=== PATIENT | male | born 1950 | race Caucasian/White ===

== ENCOUNTER 2017-04-01 10:00 | Outpatient (RCR) | payer MEDICARE, SELFPAY ==
[2017-03-25 09:19] VITALS: BP 156/72; PULSE 90; RESP 18; TEMP 36.3
--- NOTE | 2017-03-25 13:56 | HP.PCM_ITS ---
(1) Non-pressure ulcer of right lower extremity with fat layer exposed Status: Acute Current Visit: Yes Code(s): L97.912 - Non-pressure chronic ulcer of unspecified part of right lower leg with fat layer exposed (2) Non-pressure ulcer of left lower extremity with fat layer exposed Status: Acute Current Visit: Yes Code(s): L97.922 - Non-pressure chronic ulcer of unspecified part of left lower leg with fat layer exposed (3) Lower extremity edema Status: Acute Current Visit: Yes Code(s): R60.0 - Localized edema (4) Malnutrition Status: Acute Current Visit: Yes Code(s): E46 - Unspecified protein-calorie malnutrition (5) Obesity Status: Acute Current Visit: Yes Code(s): E66.9 - Obesity, unspecified (6) Peripheral vascular obstructive disease Status: Acute Current Visit: No Code(s): I73.9 - Peripheral vascular disease , unspecified (7) Type 2 diabetes mellitus with peripheral neuropathy Status: Acute Current Visit: No Code(s): E11.42 - Type 2 diabetes mellitus with diabetic polyneuropathy History of Present Illness Date of Service: 03/25/17 Chief Complaint: clusters of small open ulcers to bilateral anterior lower legs History of Wound: This 66-year-old diabetic male presents to the wound center today for bilateral lower extremity small clusters of tiny ulcers that have recently opened back up. Patient has been discharged from the wound center in the past for the same issues. He and his returned today stating that they noticed the areas opening back up as well as some slight redness around them on March 22. The patient and his first went to urgent care where they prescribed Keflex for the redness and also stated that they could not rule out DVT. At this point the patient's took her to the [place] emergency room where they told her that there was no DVT and he was sent home and told to follow-up as an outpatient for further care. Patient has not been compliant with wearing compression to bilateral lower extremities. The says she is able to get the compression on some days but other days it is too hard. The patient also does not control his diabetes and does not watch his diet per . Patient has a procedure scheduled on April [address] Ho. Patient and his both deny any purulence or malodor to the areas and the patient also denies any feelings of nausea, vomiting, fever, chills. 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) Allergies/Adverse Reactions: Allergies lisinopril Allergy (Verified 03/22/17 20:58) COUGH simvastatin Allergy (Verified 03/22/17 20:58) Unknown Home Medications: Ambulatory Orders Medication Instructions Recorded Aspirin [Aspirin, Baby] 81 mg PO DAILY@0800 10/07/16 Diclofenac [Voltaren] 75 mg PO BID PRN PRN 10/07/16 Levothyroxine [Synthroid] 50 mcg PO DAILY 10/07/16 Losartan/Hydrochlorothiazide 1 each PO DAILY 10/07/16 [Losartan-Hctz 100-25 mg Tab] Insulin Aspart [Novolog Flexpen] 22 units SC BREAKFAST 11/05/16 Insulin NPH Human [Humulin N Pen] 24 units SC DINNER 11/05/16 Insulin Regular, Human [Novolin R] 18 unit SC QHS 11/05/16 Insulin Regular, Human [Novolin R] 26 unit SC LUNCH 03/22/17 Cephalexin 500 mg PO BID 03/25/17 Furosemide [Lasix] 20 mg PO DAILY 03/25/17 - Family History Maternal No pertinent history Paternal No pertinent history Lives: Spouse/ Significant Other Smoking Status: Never smoker Tobacco Use: Non-smoker Review of Systems Constitutional: Denies: Chills, Fever Respiratory: Denies: Cough, Shortness of Breath Gastrointestinal: Denies: Diarrhea, Nausea, Vomiting Skin: Reports: - - Ulcers bilateral anterior lower legs Neurological: Reports: Numbness, Tingling - Physical Exam Vital Signs Temp Pulse Resp BP 97.3 F L 90 18 156/72 H 03/25/17 09:19 03/25/17 09:19 03/25/17 09:19 03/25/17 09:19 General: Alert, Oriented x3, No apparent distress Extremities: Capillary Refill Less than 3 Seconds, No Calf Tenderness - Negative Kavon and Cody sign bilateral, Diminished Peripheral Pulses - DP and PT pulses nonpalpable due to edema bilaterally., Edema - Bilateral lower extremity edema Skin: Ulcer/ Wound - Clusters of small open ulcers appreciated to bilateral anterior lower legs. The bases of the open ulcers are completely granular at this time with some slight serous drainage appreciated. No purulence, no malodor are noted. There is no probing to bone, no undermining, no tracking. There is no extending cellulitis. Some hemosiderin staining noted bilaterally to the lower extremities. No evidence of acute infection clinically., Excoriated - Some excoriated skin around the open ulcer sites. Wound Measurements and Assessment - Nurse 1 - General Ulcer Measurement Start: 03/25/17 09:10 Freq: Status: Active Protocol: Activity Type Activity Date Activity User E-Sign Co-Sign Detail Recorded Client Recorded Date Recorded By Document 03/25/17 09:19 RB [id number] 03/25/17 09:27 RB 03/25/17 09:19 Wound Center Nurse 1 [Ulcer Assessment Protocol: .WD.LOC] #5 RLE excoration cluster -Combined with other wound No -Current Size (cm) - Length 2 -Current Size (cm) - Width 11 -Current Size (cm) - Depth 0.1 -Total Square Cm 22 -Photo Taken Yes -Tunneling No -Undermining/Tunneling No -Circular Undermining No -Classification - Thickness Full Thickness without Exposed Support Structure -Exudate Amt Small (1-33%) -Exudate Type Serosanguineous -Wound Margin Distinct, Outline Attached -Granulation Amt Small (1-33%) -Granulation Quality [place] -Slough/Fibrin Yes -Necrosis Amt Medium (34-66%) -Necrotic Tissue Type Adherent Slough -Structure Exposed N/A -Texture (Michelle-wound Skin Appearance) Assessed Excoriation -Moisture (Michelle-wound Skin Appearance Assessed ) -Color (Michelle-wound Skin Appearance) Assessed -Temperature (Michelle-wound Skin No Abnormality Appearance) (Pt Warm) -Tenderness on Palpation (Michelle-wound No Skin Appearance) -Ulcer Cleansing Rinsed/ Irrigated with Saline -Anesthetic Used 4% Lidocaine Solution #6 LLE excoration cluster -Combined with other wound No -Current Size (cm) - Length 10 -Current Size (cm) - Width 4 -Current Size (cm) - Depth 0.1 -Total Square Cm 40 -Photo Taken Yes -Tunneling No -Undermining/Tunneling No -Circular Undermining No -Classification - Thickness Full Thickness without Exposed Support Structure -Exudate Amt Small (1-33%) -Exudate Type Serosanguineous -Wound Margin Distinct, Outline Attached -Granulation Amt Small (1-33%) -Granulation Quality [place] -Necrosis Amt Medium (34-66%) -Necrotic Tissue Type Adherent Slough -Structure Exposed N/A -Texture (Michelle-wound Skin Appearance) Assessed Excoriation -Moisture (Michelle-wound Skin Appearance Assessed ) -Color (Michelle-wound Skin Appearance) Assessed -Temperature ([place]-wound Skin No Abnormality Appearance) (Pt Warm) -Tenderness on Palpation (Michelle-wound No Skin Appearance) -Ulcer Cleansing Rinsed/ Irrigated with Saline -Foul Odor after Cleansing No -Anesthetic Used 4% Lidocaine Solution [Edema Assessment] -Lower Limb Edema Present Yes -Right Calf (cm) 45.2 -Right Ankle (cm) 25.5 -Left Calf (cm) 45.5 -Left Ankle (cm) 25 WC - Nurse 2 - General Ulcer CM Notes Start: 03/25/17 09:10 Freq: Status: Active Protocol: Activity Type Activity Date Activity User E-Sign Co-Sign Detail Recorded Client Recorded Date Recorded By Document 03/25/17 10:12 MW [id number] 03/25/17 10:17 MW 03/25/17 10:12 Wound Center Nurse 2 [Procedure/Treatment] #5 RLE excoration cluster -Time 09:45 -Correct Patient Yes -Correct Side, Site, Position Yes -Correct Procedure Yes -Procedure Performed No -Post Debridement Size (cm) - Length 12.0 -Post Debridement Size (cm) - Width 14.0 -Post Debridement Size (cm) - Depth 0.1 -Total Square Cm 168.00 -Wound/Ulcer Outcome Not Healed -Ulcer Cleansing Not Cleansed -Foul Odor after Cleansing No -Bioengineered Tissue No -Cetacaine [place] No -Bleeding Controlled with NA -Treatment Response Procedure Tolerated Well #6 LLE excoration cluster -Time 09:45 -Correct Patient Yes -Correct Side, Site, Position Yes -Correct Procedure Yes -Procedure Performed No -Post Debridement Size (cm) - Length 5.0 -Post Debridement Size (cm) - Width 9.5 -Post Debridement Size (cm) - Depth 0.1 -Total Square Cm 47.50 -Wound/Ulcer Outcome Not Healed -Ulcer Cleansing Not Cleansed -Foul Odor after Cleansing No -Bioengineered Tissue No -Cetacaine [place] No -Bleeding Controlled with NA -Treatment Response Procedure Tolerated Well [See Physician Procedure note for Specifics] Pain Scale: 0-10 Numeric [Pain] -Is Patient Pain Free? Yes Musculoskeletal: - - No tenderness today according to patient. Neurological: - - Protective sensation diminished bilaterally to greater than 2 of 5 pedal sites tested at random using a 5.07 [place] monofilament Psych/Mental Status: Normal Affect, Appropriate Debridement Note Post-Debridement Measurements/Treatment WC - Nurse 2 - General Ulcer CM Notes Start: 03/25/17 09:10 Freq: Status: Active Protocol: Activity Type Activity Date Activity User E-Sign Co-Sign Detail Recorded Client Recorded Date Recorded By Document 03/25/17 10:12 MW [id number] 03/25/17 10:17 MW 03/25/17 10:12 Wound Center Nurse 2 #5 RLE excoration cluster -Time 09:45 -Correct Patient Yes -Correct Side, Site, Position Yes -Correct Procedure Yes -Procedure Performed No -Post Debridement Size (cm) - Length 12.0 -Post Debridement Size (cm) - Width 14.0 -Post Debridement Size (cm) - Depth 0.1 -Total Square Cm 168.00 -Wound/Ulcer Outcome Not Healed -Ulcer Cleansing Not Cleansed -Foul Odor after Cleansing No -Bioengineered Tissue No -Cetacaine [place] No -Bleeding Controlled with NA -Treatment Response Procedure Tolerated Well #6 LLE excoration cluster -Time 09:45 -Correct Patient Yes -Correct Side, Site, Position Yes -Correct Procedure Yes -Procedure Performed No -Post Debridement Size (cm) - Length 5.0 -Post Debridement Size (cm) - Width 9.5 -Post Debridement Size (cm) - Depth 0.1 -Total Square Cm 47.50 -Wound/Ulcer Outcome Not Healed -Ulcer Cleansing Not Cleansed -Foul Odor after Cleansing No -Bioengineered Tissue No -Cetacaine [place] No -Bleeding Controlled with NA -Treatment Response Procedure Tolerated Well Pain Scale: 0-10 Numeric Is Patient Pain Free? Yes Wound debrided: bilateral anterior lower extremity No debridement was completed today Assessment/Plan Active Problems Non-pressure ulcer of right lower extremity with fat layer exposed (Acute) Non-pressure ulcer of left lower extremity with fat layer exposed (Acute) Lower extremity edema (Acute) Malnutrition (Acute) Obesity (Acute) Assessment: Peripheral vascular occlusive disease. Edema bilateral lower legs. Bilateral lower leg ulcer. Diabetes uncontrolled Plan: Initial patient examination evaluation was performed. Previous lab values and notes were reviewed in great detail. Due to the nature of the patient's ulcers, no debridement was warranted today. The patient is to apply hydrogel to the areas, followed by Adaptic, gauze dressing, and a double layer Tubigrip. This is to be changed by the patient and his daily. A lot of time was spent with the patient and his stressing the importance of compression to his lower extremities, and the importance of compliance with treatment plans. Patient encouraged to follow the treatment plan closely in order to heal up the small clusters of open ulcers before he sees Dr. Ho on April 05 for his procedure. The patient's diet was discussed with the patient and his as well and the importance of eating a high-protein diet as well as avoiding foods that are not conducive to a diabetic diet. The importance of tight glycemic control was also discussed as well as bringing down the hemoglobin A1c number. Patient is to continue with his prescription for Keflex until completed. Prescription for dressing change supplies was given and to be filled at [facility]. Patient and his were also educated on signs and symptoms of local and systemic infection and were notified to go to the ER immediately should they notice any. Otherwise, the patient will follow up in office in one week to check on progress.
[2017-04-01 10:27] VITALS: BP 146/77; PULSE 80; RESP 18; TEMP 35.9
--- NOTE | 2017-04-01 21:25 | PCM.WC.PN ---
(1) Non-pressure ulcer of right lower extremity with fat layer exposed Status: Acute Current Visit: Yes Code(s): L97.912 - Non-pressure chronic ulcer of unspecified part of right lower leg with fat layer exposed (2) Non-pressure ulcer of left lower extremity with fat layer exposed Status: Acute Current Visit: Yes Code(s): L97.922 - Non-pressure chronic ulcer of unspecified part of left lower leg with fat layer exposed (3) Lower extremity edema Status: Acute Current Visit: Yes Code(s): R60.0 - Localized edema (4) Malnutrition Status: Acute Current Visit: Yes Code(s): E46 - Unspecified protein-calorie malnutrition (5) Obesity Status: Acute Current Visit: Yes Code(s): E66.9 - Obesity, unspecified (6) Peripheral vascular obstructive disease Status: Acute Current Visit: No Code(s): I73.9 - Peripheral vascular disease, unspecified (7) Type 2 diabetes mellitus with peripheral neuropathy Status: Acute Current Visit: No Code(s): E11.42 - Type 2 diabetes mellitus with diabetic polyneuropathy Type of Wound Date of Service: 04/01/17 Chief Complaint: clusters of small open ulcers to bilateral anterior lower legs History of Wound: This 66-year-old diabetic male presents to the wound center today for follow up of bilateral lower extremity small clusters of tiny ulcers that have recently opened back up. Over the last week the patient and his state they have been trying to follow the dressing changes as well as compression to bilateral lower extremities as much as they can. The feel there is an improvement. Patient and his both deny any purulence or malodor to the areas and the patient also denies any feelings of nausea, vomiting, fever, chills. Progress of Wound: areas are healed today. - Physical Exam Vital Signs Temp Pulse Resp BP 96.7 F L 80 18 146/77 H 04/01/17 10:27 04/01/17 10:27 04/01/17 10:27 04/01/17 10:27 General: Alert, Oriented x3, Cooperative, No apparent distress Extremities: Capillary Refill Less than 3 Seconds, No Calf Tenderness - Negative Kavon and Cody sign bilateral, Edema - Bilateral pitting lower extremity edema which is slightly improved since last week, - - DP and PT pulses nonpalpable bilateral due to edema Skin: Ulcer/ Wound - Clusters of small open ulcers to bilateral anterior lower legs. Appear healed at this time. There is no drainage or openings in the skin noted. A couple of small scabs appreciated, however upon removal, there were no openings in the skin. There is no erythema appreciated or extending cellulitis. Some hemosiderin staining noted bilaterally to the lower extremities. No evidence of acute infection clinically. Wound Measurements and Assessment - Nurse 1 - General Ulcer Measurement Start: 03/25/17 09:10 Freq: Status: Active Protocol: Activity Type Activity Date Activity User E-Sign Co-Sign Detail Recorded Client Recorded Date Recorded By Document 04/01/17 10:27 TM [id number] 04/01/17 10:38 TM 04/01/17 10:27 Wound Center Nurse 1 [Ulcer Assessment Protocol: WC.WD.LOC] #5 RLE excoration cluster -Combined with other wound No -Current Size (cm) - Length 6.0 -Current Size (cm) - Width 16.0 -Current Size (cm) - Depth 0.1 -Total Square Cm 96.00 -Photo Taken No -Epithelialization Small 1-33% -Tunneling No -Undermining/Tunneling No -Circular Undermining No -Classification - Thickness Full Thickness without Exposed Support Structure -Exudate Amt Small (1-33%) -Exudate Type Serous -Wound Margin Distinct, Outline Attached -Granulation Amt Medium (34-66%) -Granulation Quality [place] -Slough/Fibrin Yes -Necrosis Amt Medium (34-66%) -Necrotic Tissue Type Adherent Slough -Structure Exposed None/Limited to Skin Breakdown -Texture (Michelle-wound Skin Appearance) Localized Edema -Moisture (Michelle-wound Skin Appearance Dry/Scaly ) -Color (Michelle-wound Skin Appearance) Erythema Hemosiderin Staining -Temperature (Michelle-wound Skin No Abnormality Appearance) (Pt Warm) -Tenderness on Palpation (Michelle-wound No Skin Appearance) -Ulcer Cleansing Rinsed/ Irrigated with Saline -Foul Odor after Cleansing No -Anesthetic Used 4% Lidocaine Solution #6 LLE excoration cluster -Combined with other wound No -Current Size (cm) - Length 9.0 -Current Size (cm) - Width 4.5 -Current Size (cm) - Depth 0.1 -Total Square Cm 40.50 -Photo Taken No -Epithelialization Small 1-33% -Tunneling No -Undermining/Tunneling No -Circular Undermining No -Classification - Thickness Full Thickness without Exposed Support Structure -Exudate Amt Small (1-33%) -Exudate Type Serous -Wound Margin Distinct, Outline Attached -Granulation Amt Small (1-33%) -Granulation Quality [place] -Slough/Fibrin Yes -Necrosis Amt Medium (34-66%) -Necrotic Tissue Type Adherent Slough -Structure Exposed None/Limited to Skin Breakdown -Texture (Michelle-wound Skin Appearance) Localized Edema -Moisture (Michelle-wound Skin Appearance Dry/Scaly ) -Color (Michelle-wound Skin Appearance) Erythema Hemosiderin Staining -Temperature (Michelle-wound Skin No Abnormality Appearance) (Pt Warm) -Tenderness on Palpation (Michelle-wound No Skin Appearance) -Ulcer Cleansing Rinsed/ Irrigated with Saline -Foul Odor after Cleansing No -Anesthetic Used 4% Lidocaine Solution [Edema Assessment] -Lower Limb Edema Present Yes -Right Calf (cm) 37.0 -Right Ankle (cm) 24.0 -Left Calf (cm) 38.0 -Left Ankle (cm) 24.0 WC - Nurse 2 - General Ulcer CM Notes Start: 03/25/17 09:10 Freq: Status: Active Protocol: Activity Type Activity Date Activity User E-Sign Co-Sign Detail Recorded Client Recorded Date Recorded By Document 04/01/17 10:59 MW [id number] 04/01/17 11:05 MW 04/01/17 10:59 Wound Center Nurse 2 [Procedure/Treatment] #5 RLE excoration cluster -Time 10:59 -Correct Patient Yes -Correct Side, Site, Position Yes -Correct Procedure Yes -Procedure Performed Yes -Type of Procedure Debridement -Clinical Debridement Selective -Post Debridement Size (cm) - Length 0 -Post Debridement Size (cm) - Width 0 -Post Debridement Size (cm) - Depth 0 -Total Square Cm 0 -Wound/Ulcer Outcome Healed- Epithelialized -Ulcer Cleansing Rinsed/ Irrigated with Saline -Foul Odor after Cleansing No -Bioengineered Tissue No -Cetacaine [place] No -Bleeding Controlled with NA -Treatment Response Procedure Tolerated Well #6 LLE excoration cluster -Time 11:02 -Correct Patient Yes -Correct Side, Site, Position Yes -Correct Procedure Yes -Procedure Performed Yes -Type of Procedure Debridement -Clinical Debridement Selective -Post Debridement Size (cm) - Length 0 -Post Debridement Size (cm) - Width 0 -Post Debridement Size (cm) - Depth 0 -Total Square Cm 0 -Wound/Ulcer Outcome Healed- Epithelialized -Ulcer Cleansing Not Cleansed -Foul Odor after Cleansing No -Bioengineered Tissue No -Cetacaine [place] No -Bleeding Controlled with NA -Treatment Response Procedure Tolerated Well [See Physician Procedure note for Specifics] Pain Scale: 0-10 Numeric [Pain] -Is Patient Pain Free? Yes Neurological: - - Epicritic sensation diminished to bilateral lower extremities Psych/Mental Status: Normal Affect, Appropriate Debridement Note Post-Debridement Measurements/Treatment WC - Nurse 2 - General Ulcer CM Notes Start: 03/25/17 09:10 Freq: Status: Active Protocol: Activity Type Activity Date Activity User E-Sign Co-Sign Detail Recorded Client Recorded Date Recorded By Document 03/25/17 10:12 MW [id number] 03/25/17 10:17 MW Document 04/01/17 10:59 MW [id number] 04/01/17 11:05 MW 03/25/17 04/01/17 10:12 10:59 Wound Center Nurse 2 #5 RLE excoration cluster -Time 09:45 10:59 -Correct Patient Yes Yes -Correct Side, Site, Position Yes Yes -Correct Procedure Yes Yes -Procedure Performed No Yes -Type of Procedure Debridement -Clinical Debridement Selective -Post Debridement Size (cm) - Length 12.0 0 -Post Debridement Size (cm) - Width 14.0 0 -Post Debridement Size (cm) - Depth 0.1 0 -Total Square Cm 168.00 0 -Wound/Ulcer Outcome Not Healed Healed- Epithelialized -Ulcer Cleansing Not Cleansed Rinsed/ Irrigated with Saline -Foul Odor after Cleansing No No -Bioengineered Tissue No No -Cetacaine [place] No No -Bleeding Controlled with NA NA -Treatment Response Procedure Procedure Tolerated Well Tolerated Well #6 LLE excoration cluster -Time 09:45 11:02 -Correct Patient Yes Yes -Correct Side, Site, Position Yes Yes -Correct Procedure Yes Yes -Procedure Performed No Yes -Type of Procedure Debridement -Clinical Debridement Selective -Post Debridement Size (cm) - Length 5.0 0 -Post Debridement Size (cm) - Width 9.5 0 -Post Debridement Size (cm) - Depth 0.1 0 -Total Square Cm 47.50 0 -Wound/Ulcer Outcome Not Healed Healed- Epithelialized -Ulcer Cleansing Not Cleansed Not Cleansed -Foul Odor after Cleansing No No -Bioengineered Tissue No No -Cetacaine [place] No No -Bleeding Controlled with NA NA -Treatment Response Procedure Procedure Tolerated Well Tolerated Well Pain Scale: 0-10 Numeric Is Patient Pain Free? Yes Yes No debridement was completed today Assessment/Plan Active Problems Non-pressure ulcer of right lower extremity with fat layer exposed (Acute) Non-pressure ulcer of left lower extremity with fat layer exposed (Acute) Lower extremity edema (Acute) Malnutrition (Acute) Obesity (Acute) Assessment: Peripheral vascular occlusive disease. Edema bilateral lower legs. Bilateral lower leg ulcer. Diabetes uncontrolled Plan: Patient was examined and evaluated. At this current time, he is noted to be completely healed. Although the ulcers to both lower legs have healed, the patient is to continue wearing the tubigrip compression dressings as instructed. A lot of time was spent with the patient and his stressing the importance of compression to his lower extremities, and the importance of compliance with treatment plans. Patient is planning to see Dr. Ho on Apr 05 for a procedure. It was stressed the importance of keeping these areas healed. The patient's diet was again discussed with the patient and his as well and the importance of eating a high-protein diet as well as avoiding foods that are not conducive to a diabetic diet. The importance of tight glycemic control was also discussed as well as bringing down the hemoglobin A1c number. Patient and his were also educated on signs and symptoms of local and systemic infection and were notified to go to the ER immediately should they notice any. At this time patient will be discharged from wound healing center, transfer of care to Dr. Ho. Patient instructed to return to wound healing center should any ulcers return.
--- NOTE | 2017-04-01 21:39 | PN.PCM_ITS ---
(1) Non-pressure ulcer of right lower extremity with fat layer exposed Status: Acute Current Visit: Yes Code(s): L97.912 - Non-pressure chronic ulcer of unspecified part of right lower leg with fat layer exposed (2) Non-pressure ulcer of left lower extremity with fat layer exposed Status: Acute Current Visit: Yes Code(s): L97.922 - Non-pressure chronic ulcer of unspecified part of left lower leg with fat layer exposed (3) Lower extremity edema Status: Acute Current Visit: Yes Code(s): R60.0 - Localized edema (4) Malnutrition Status: Acute Current Visit: Yes Code(s): E46 - Unspecified protein-calorie malnutrition (5) Obesity Status: Acute Current Visit: Yes Code(s): E66.9 - Obesity, unspecified (6) Peripheral vascular obstructive disease Status: Acute Current Visit: No Code(s): I73.9 - Peripheral vascular disease , unspecified (7) Type 2 diabetes mellitus with peripheral neuropathy Status: Acute Current Visit: No Code(s): E11.42 - Type 2 diabetes mellitus with diabetic polyneuropathy Type of Wound Date of Service: 04/01/17 Chief Complaint: clusters of small open ulcers to bilateral anterior lower legs History of Wound: This 66-year-old diabetic male presents to the wound center today for follow up of bilateral lower extremity small clusters of tiny ulcers that have recently opened back up. Over the last week the patient and his state they have been trying to follow the dressing changes as well as compression to bilateral lower extremities as much as they can. The feel there is an improvement. Patient and his both deny any purulence or malodor to the areas and the patient also denies any feelings of nausea, vomiting, fever, chills. Progress of Wound: areas are healed today. - Physical Exam Vital Signs Temp Pulse Resp BP 96.7 F L 80 18 146/77 H 04/01/17 10:27 04/01/17 10:27 04/01/17 10:27 04/01/17 10:27 General: Alert, Oriented x3, Cooperative, No apparent distress Extremities: Capillary Refill Less than 3 Seconds, No Calf Tenderness - Negative Kavon and Cody sign bilateral, Edema - Bilateral pitting lower extremity edema which is slightly improved since last week, - - DP and PT pulses nonpalpable bilateral due to edema Skin: Ulcer/ Wound - Clusters of small open ulcers to bilateral anterior lower legs. Appear healed at this time. There is no drainage or openings in the skin noted. A couple of small scabs appreciated, however upon removal, there were no openings in the skin. There is no erythema appreciated or extending cellulitis. Some hemosiderin staining noted bilaterally to the lower extremities. No evidence of acute infection clinically. Wound Measurements and Assessment - Nurse 1 - General Ulcer Measurement Start: 03/25/17 09:10 Freq: Status: Active Protocol: Activity Type Activity Date Activity User E-Sign Co-Sign Detail Recorded Client Recorded Date Recorded By Document 04/01/17 10:27 TM [id number] 04/01/17 10:38 TM 04/01/17 10:27 Wound Center Nurse 1 [Ulcer Assessment Protocol: WC.WD.LOC] #5 RLE excoration cluster -Combined with other wound No -Current Size (cm) - Length 6.0 -Current Size (cm) - Width 16.0 -Current Size (cm) - Depth 0.1 -Total Square Cm 96.00 -Photo Taken No -Epithelialization Small 1-33% -Tunneling No -Undermining/Tunneling No -Circular Undermining No -Classification - Thickness Full Thickness without Exposed Support Structure -Exudate Amt Small (1-33%) -Exudate Type Serous -Wound Margin Distinct, Outline Attached -Granulation Amt Medium (34-66%) -Granulation Quality Pale -Slough/Fibrin Yes -Necrosis Amt Medium (34-66%) -Necrotic Tissue Type Adherent Slough -Structure Exposed None/Limited to Skin Breakdown -Texture (Michelle-wound Skin Appearance) Localized Edema -Moisture (Michelle-wound Skin Appearance Dry/Scaly ) -Color (Michelle-wound Skin Appearance) Erythema Hemosiderin Staining -Temperature (Michelle-wound Skin No Abnormality Appearance) (Pt Warm) -Tenderness on Palpation (Michelle-wound No Skin Appearance) -Ulcer Cleansing Rinsed/ Irrigated with Saline -Foul Odor after Cleansing No -Anesthetic Used 4% Lidocaine Solution #6 LLE excoration cluster -Combined with other wound No -Current Size (cm) - Length 9.0 -Current Size (cm) - Width 4.5 -Current Size (cm) - Depth 0.1 -Total Square Cm 40.50 -Photo Taken No -Epithelialization Small 1-33% -Tunneling No -Undermining/Tunneling No -Circular Undermining No -Classification - Thickness Full Thickness without Exposed Support Structure -Exudate Amt Small (1-33%) -Exudate Type Serous -Wound Margin Distinct, Outline Attached -Granulation Amt Small (1-33%) -Granulation Quality [place] -Slough/Fibrin Yes -Necrosis Amt Medium (34-66%) -Necrotic Tissue Type Adherent Slough -Structure Exposed None/Limited to Skin Breakdown -Texture (Michelle-wound Skin Appearance) Localized Edema -Moisture (Michelle-wound Skin Appearance Dry/Scaly ) -Color (Michelle-wound Skin Appearance) Erythema Hemosiderin Staining -Temperature (Michelle-wound Skin No Abnormality Appearance) (Pt Warm) -Tenderness on Palpation (Michelle-wound No Skin Appearance) -Ulcer Cleansing Rinsed/ Irrigated with Saline -Foul Odor after Cleansing No -Anesthetic Used 4% Lidocaine Solution [Edema Assessment] -Lower Limb Edema Present Yes -Right Calf (cm) 37.0 -Right Ankle (cm) 24.0 -Left Calf (cm) 38.0 -Left Ankle (cm) 24.0 WC - Nurse 2 - General Ulcer CM Notes Start: 03/25/17 09:10 Freq: Status: Active Protocol: Activity Type Activity Date Activity User E-Sign Co-Sign Detail Recorded Client Recorded Date Recorded By Document 04/01/17 10:59 MW [id number] 04/01/17 11:05 MW 04/01/17 10:59 Wound Center Nurse 2 [Procedure/Treatment] #5 RLE excoration cluster -Time 10:59 -Correct Patient Yes -Correct Side, Site, Position Yes -Correct Procedure Yes -Procedure Performed Yes -Type of Procedure Debridement -Clinical Debridement Selective -Post Debridement Size (cm) - Length 0 -Post Debridement Size (cm) - Width 0 -Post Debridement Size (cm) - Depth 0 -Total Square Cm 0 -Wound/Ulcer Outcome Healed- Epithelialized -Ulcer Cleansing Rinsed/ Irrigated with Saline -Foul Odor after Cleansing No -Bioengineered Tissue No -Cetacaine [place] No -Bleeding Controlled with NA -Treatment Response Procedure Tolerated Well #6 LLE excoration cluster -Time 11:02 -Correct Patient Yes -Correct Side, Site, Position Yes -Correct Procedure Yes -Procedure Performed Yes -Type of Procedure Debridement -Clinical Debridement Selective -Post Debridement Size (cm) - Length 0 -Post Debridement Size (cm) - Width 0 -Post Debridement Size (cm) - Depth 0 -Total Square Cm 0 -Wound/Ulcer Outcome Healed- Epithelialized -Ulcer Cleansing Not Cleansed -Foul Odor after Cleansing No -Bioengineered Tissue No -Cetacaine [place] No -Bleeding Controlled with NA -Treatment Response Procedure Tolerated Well [See Physician Procedure note for Specifics] Pain Scale: 0-10 Numeric [Pain] -Is Patient Pain Free? Yes Neurological: - - Epicritic sensation diminished to bilateral lower extremities Psych/Mental Status: Normal Affect, Appropriate Debridement Note Post-Debridement Measurements/Treatment WC - Nurse 2 - General Ulcer CM Notes Start: 03/25/17 09:10 Freq: Status: Active Protocol: Activity Type Activity Date Activity User E-Sign Co-Sign Detail Recorded Client Recorded Date Recorded By Document 03/25/17 10:12 MW [id number] 03/25/17 10:17 MW Document 04/01/17 10:59 MW [id number] 04/01/17 11:05 MW 03/25/17 04/01/17 10:12 10:59 Wound Center Nurse 2 #5 RLE excoration cluster -Time 09:45 10:59 -Correct Patient Yes Yes -Correct Side, Site, Position Yes Yes -Correct Procedure Yes Yes -Procedure Performed No Yes -Type of Procedure Debridement -Clinical Debridement Selective -Post Debridement Size (cm) - Length 12.0 0 -Post Debridement Size (cm) - Width 14.0 0 -Post Debridement Size (cm) - Depth 0.1 0 -Total Square Cm 168.00 0 -Wound/Ulcer Outcome Not Healed Healed- Epithelialized -Ulcer Cleansing Not Cleansed Rinsed/ Irrigated with Saline -Foul Odor after Cleansing No No -Bioengineered Tissue No No -Cetacaine [place] No No -Bleeding Controlled with NA NA -Treatment Response Procedure Procedure Tolerated Well Tolerated Well #6 LLE excoration cluster -Time 09:45 11:02 -Correct Patient Yes Yes -Correct Side, Site, Position Yes Yes -Correct Procedure Yes Yes -Procedure Performed No Yes -Type of Procedure Debridement -Clinical Debridement Selective -Post Debridement Size (cm) - Length 5.0 0 -Post Debridement Size (cm) - Width 9.5 0 -Post Debridement Size (cm) - Depth 0.1 0 -Total Square Cm 47.50 0 -Wound/Ulcer Outcome Not Healed Healed- Epithelialized -Ulcer Cleansing Not Cleansed Not Cleansed -Foul Odor after Cleansing No No -Bioengineered Tissue No No -Cetacaine [place] No No -Bleeding Controlled with NA NA -Treatment Response Procedure Procedure Tolerated Well Tolerated Well Pain Scale: 0-10 Numeric Is Patient Pain Free? Yes Yes No debridement was completed today Assessment/Plan Active Problems Non-pressure ulcer of right lower extremity with fat layer exposed (Acute) Non-pressure ulcer of left lower extremity with fat layer exposed (Acute) Lower extremity edema (Acute) Malnutrition (Acute) Obesity (Acute) Assessment: Peripheral vascular occlusive disease. Edema bilateral lower legs. Bilateral lower leg ulcer. Diabetes uncontrolled Plan: Patient was examined and evaluated. At this current time, he is noted to be completely healed. Although the ulcers to both lower legs have healed, the patient is to continue wearing the tubigrip compression dressings as instructed. A lot of time was spent with the patient and his stressing the importance of compression to his lower extremities, and the importance of compliance with treatment plans. Patient is planning to see Dr. Ho on Apr 05 for a procedure. It was stressed the importance of keeping these areas healed. The patient's diet was again discussed with the patient and his as well and the importance of eating a high-protein diet as well as avoiding foods that are not conducive to a diabetic diet. The importance of tight glycemic control was also discussed as well as bringing down the hemoglobin A1c number. Patient and his were also educated on signs and symptoms of local and systemic infection and were notified to go to the ER immediately should they notice any. At this time patient will be discharged from wound healing center, transfer of care to Dr. Ho. Patient instructed to return to wound healing center should any ulcers return.
[2017-04-08 15:56] VITALS: BP 184/84; PULSE 76; RESP 24; TEMP 36.2
== END 2017-04-14 23:59 ==
LOC: WC 10:00
PROVIDERS: Family Provider Internal Medicine; PCP Internal Medicine; Visit Provider Podiatrist
DX: E11.622 Type 2 diabetes mellitus with other skin ulcer (principal); L97.812 Non-pressure chronic ulcer of other part of right lower leg with fat layer exposed; L97.822 Non-pressure chronic ulcer of other part of left lower leg with fat layer exposed; R60.0 Localized edema; E66.9 Obesity, unspecified; Z71.3 Dietary counseling and surveillance; E11.42 Type 2 diabetes mellitus with diabetic polyneuropathy; E11.51 Type 2 diabetes mellitus with diabetic peripheral angiopathy without gangrene; Z91.19 Patient's noncompliance with other medical treatment and regimen; Z91.14 Patient's other noncompliance with medication regimen; G47.33 Obstructive sleep apnea (adult) (pediatric); Z86.73 Personal history of transient ischemic attack (TIA), and cerebral infarction without residual deficits; I10 Essential (primary) hypertension; Z79.899 Other long term (current) drug therapy; Z79.4 Long term (current) use of insulin; Z79.82 Long term (current) use of aspirin; E11.65 Type 2 diabetes mellitus with hyperglycemia
CPT/HCPCS: 99212; 99213; G0463

== ENCOUNTER 2017-05-07 11:00 | Outpatient (RCR) | payer MEDICARE, SELFPAY ==
[2017-03-22 20:55] VITALS: BMI 47.9
[2017-04-08 15:56] VITALS: BP 184/84
[2017-04-15 01:07] VITALS: PULSE 76; RESP 24; TEMP 36.2
[2017-04-16 10:16] VITALS: BP 142/78; PULSE 72; RESP 18; TEMP 35.1; BMI 47.9
--- NOTE | 2017-04-16 11:47 | PN.PCM_ITS ---
(1) Edema of both legs Status: Acute Current Visit: Yes Code(s): R60.0 - Localized edema (2) Lower extremity edema Status: Acute Current Visit: Yes Code(s): R60.0 - Localized edema (3) Neuropathy Status: Acute Current Visit: Yes Code(s): G62.9 - Polyneuropathy, unspecified (4) Peripheral vascular obstructive disease Status: Chronic Current Visit: Yes Code(s): I73.9 - Peripheral vascular disease, unspecified (5) Type 2 diabetes mellitus with peripheral neuropathy Status: Chronic Current Visit: Yes Code(s): E11.42 - Type 2 diabetes mellitus with diabetic polyneuropathy (6) Blister of lower extremity without infection Status: Acute Current Visit: Yes Code(s): S80.829A - Blister (nonthermal), unspecified lower leg, initial encounter Type of Wound Date of Service: 04/16/17 Chief Complaint: Blister behind right knee and a small traumatic abrasion to the right lewis. Patient had surgery [address] Ho on the right lower leg. Tolerated well but from the original surgical wraps developed a blister behind the right knee intiginous area. Also putting on stockings gouged his anterior lewis and either that or hit a drawer. Both areas are superficial. The blister has deflated and is now just skin I removed that and now has an open area on the right posterior knee. And another open ulcer superficial to the right lewis. History of Wound: This 66-year-old diabetic male presents to the wound center today for follow up of bilateral lower extremity small clusters of tiny ulcers that have recently opened back up. Over the last week the patient and his state they have been trying to follow the dressing changes as well as compression to bilateral lower extremities as much as they can. The feel there is an improvement. Patient and his both deny any purulence or malodor to the areas and the patient also denies any feelings of nausea, vomiting, fever, chills. Progress of Wound: Both superficial now ulcers on the right posterior knee and right lower lewis will be using just some hydrogel and Adaptic to get them to heal close patient is to continue wearing the Tubigrip single layer thigh high and we did give patient Coban and to keep it up because it keeps slipping down that is what causes the blister. - Physical Exam Vital Signs Temp Pulse Resp BP 95.1 F L 72 18 142/78 H 04/16/17 10:16 04/16/17 10:16 04/16/17 10:16 04/16/17 10:16 General: Oriented x3, Cooperative, Well developed HEENT: Atraumatic, PERRLA Oral: Moist Mucosa Neck: Supple, No JVD Lungs: Clear to auscultation, Normal air movement Cardiovascular: Regular rate, Regular Rhythm Abdomen: Bowel Sounds Present, Soft, Non Tender, No Hepato-splenomegaly Extremities: No clubbing, No edema, - - 2 superficial ulcers right posterior knee and right lewis Wound Measurements and Assessment WC - Nurse 1 - General Ulcer Measurement Start: 04/16/17 10:15 Freq: Status: Active Protocol: Activity Type Activity Date Activity User E-Sign Co-Sign Detail Recorded Client Recorded Date Recorded By Document 04/16/17 10:16 TM [id number] 04/16/17 10:48 TM 04/16/17 10:16 Wound Center Nurse 1 [Ulcer Assessment Protocol: YFN.WD.LOC] #9 RIGHT LEWIS -Combined with other wound No -Current Size (cm) - Length 0.9 -Current Size (cm) - Width 0.9 -Current Size (cm) - Depth 0.1 -Total Square Cm 0.81 -Date of Last Picture (Recall this 04/16/17 field) -Photo Taken Yes -Epithelialization Small 1-33% -Tunneling No -Undermining/Tunneling No -Circular Undermining No -Classification - Thickness Full Thickness without Exposed Support Structure -Exudate Amt Small (1-33%) -Exudate Type Serous -Wound Margin Distinct, Outline Attached -Granulation Amt Large (67-100%) -Granulation Quality [place] -Slough/Fibrin Yes -Necrosis Amt Small (1-33%) -Necrotic Tissue Type Adherent Slough -Structure Exposed Fascia Fat Layer Exposed -Texture (Michelle-wound Skin Appearance) Localized Edema Scarring -Moisture (Michelle-wound Skin Appearance No Abnormality ) -Color (Michelle-wound Skin Appearance) Erythema Hemosiderin Staining -Temperature (Michelle-wound Skin No Abnormality Appearance) (Pt Warm) -Tenderness on Palpation (Michelle-wound No Skin Appearance) -Ulcer Cleansing Rinsed/ Irrigated with Saline -Foul Odor after Cleansing No -Anesthetic Used 5% Lidocaine Gel #8 RIGHT POSTERIOR KNEE (POPLITEAL) -Current Size (cm) - Length 1.5 -Current Size (cm) - Width 4.5 -Current Size (cm) - Depth 0.1 -Total Square Cm 6.75 -Date of Last Picture (Recall this 04/16/17 field) -Photo Taken Yes -Epithelialization Small 1-33% -Tunneling No -Undermining/Tunneling No -Circular Undermining No -Classification - Thickness Full Thickness without Exposed Support Structure -Exudate Amt Medium (34-66%) -Exudate Type Serous -Wound Margin Flat & Intact -Granulation Amt Medium (34-66%) -Granulation Quality [place] -Slough/Fibrin Yes -Necrosis Amt Small (1-33%) -Necrotic Tissue Type Adherent Slough -Structure Exposed Fascia Fat Layer Exposed -Texture (Michelle-wound Skin Appearance) Excoriation Friable Localized Edema -Moisture (Michelle-wound Skin Appearance No Abnormality ) -Color (Michelle-wound Skin Appearance) Erythema -Temperature (Michelle-wound Skin No Abnormality Appearance) (Pt Warm) -Tenderness on Palpation (Michelle-wound No Skin Appearance) -Ulcer Cleansing Rinsed/ Irrigated with Saline -Foul Odor after Cleansing No -Anesthetic Used 5% Lidocaine Gel [Edema Assessment] -Lower Limb Edema Present Yes -Right Calf (cm) 40.5 -Right Ankle (cm) 24.0 -Left Calf (cm) 42.5 -Left Ankle (cm) 24.0 WC - Nurse 2 - General Ulcer CM Notes Start: 04/16/17 10:15 Freq: Status: Active Protocol: Activity Type Activity Date Activity User E-Sign Co-Sign Detail Recorded Client Recorded Date Recorded By Document 04/16/17 11:14 MW [id number] 04/16/17 11:21 MW 04/16/17 11:14 Wound Center Nurse 2 [Procedure/Treatment] #9 RIGHT LEWIS -Time 11:16 -Correct Patient Yes -Correct Side, Site, Position Yes -Correct Procedure Yes -Procedure Performed Yes -Type of Procedure Debridement -Clinical Debridement Selective -Post Debridement Size (cm) - Length 0.6 -Post Debridement Size (cm) - Width 0.6 -Post Debridement Size (cm) - Depth 0.1 -Total Square Cm 0.36 -Wound/Ulcer Outcome Not Healed -Ulcer Cleansing Rinsed/ Irrigated with Saline -Foul Odor after Cleansing No -Bioengineered Tissue No -Bleeding Controlled with Pressure -Treatment Response Procedure Tolerated Well #8 RIGHT POSTERIOR KNEE (POPLITEAL) -Time 11:16 -Correct Patient Yes -Correct Side, Site, Position Yes -Correct Procedure Yes -Procedure Performed Yes -Type of Procedure Debridement -Clinical Debridement Selective -Post Debridement Size (cm) - Length 1.7 -Post Debridement Size (cm) - Width 5.5 -Post Debridement Size (cm) - Depth 0.1 -Total Square Cm 9.35 -Wound/Ulcer Outcome Not Healed -Ulcer Cleansing Rinsed/ Irrigated with Saline -Foul Odor after Cleansing No -Bioengineered Tissue No -Cetacaine [place] No -Bleeding Controlled with Pressure -Treatment Response Procedure Tolerated Well [See Physician Procedure note for Specifics] Pain Scale: 0-10 Numeric [Pain] -Is Patient Pain Free? Yes Musculoskeletal: No Tenderness to Palpation of Joints or Extremities Lymphatic: No Cervical, Supraclavicular, or Inguinal Adenopathy Neurological: Cranial nerves II-XII grossly intact, Neuro grossly intact Psych/Mental Status: Normal Affect, Appropriate, Alert and oriented to time, place, person, mood and affect Debridement Note Post-Debridement Measurements/Treatment WC - Nurse 2 - General Ulcer CM Notes Start: 04/16/17 10:15 Freq: Status: Active Protocol: Activity Type Activity Date Activity User E-Sign Co-Sign Detail Recorded Client Recorded Date Recorded By Document 04/16/17 11:14 MW [id number] 04/16/17 11:21 MW 04/16/17 11:14 Wound Center Nurse 2 #9 RIGHT LEWIS -Time 11:16 -Correct Patient Yes -Correct Side, Site, Position Yes -Correct Procedure Yes -Procedure Performed Yes -Type of Procedure Debridement -Clinical Debridement Selective -Post Debridement Size (cm) - Length 0.6 -Post Debridement Size (cm) - Width 0.6 -Post Debridement Size (cm) - Depth 0.1 -Total Square Cm 0.36 -Wound/Ulcer Outcome Not Healed -Ulcer Cleansing Rinsed/ Irrigated with Saline -Foul Odor after Cleansing No -Bioengineered Tissue No -Bleeding Controlled with Pressure -Treatment Response Procedure Tolerated Well #8 RIGHT POSTERIOR KNEE (POPLITEAL) -Time 11:16 -Correct Patient Yes -Correct Side, Site, Position Yes -Correct Procedure Yes -Procedure Performed Yes -Type of Procedure Debridement -Clinical Debridement Selective -Post Debridement Size (cm) - Length 1.7 -Post Debridement Size (cm) - Width 5.5 -Post Debridement Size (cm) - Depth 0.1 -Total Square Cm 9.35 -Wound/Ulcer Outcome Not Healed -Ulcer Cleansing Rinsed/ Irrigated with Saline -Foul Odor after Cleansing No -Bioengineered Tissue No -Cetacaine [place] No -Bleeding Controlled with Pressure -Treatment Response Procedure Tolerated Well Pain Scale: 0-10 Numeric Is Patient Pain Free? Yes Wound debrided: Right posterior knee Type of Debridement: Selective debridement Anesthesia Used: 5% Lidocaine Gel Depth: Down to and including healthy tissue Percentage of wound debrided: 100 Instrument Used: 3mm curette, Forceps - Scissors, - Tissue Removed: Devitalized Severity: Limited To Skin Breakdown Amount of bleeding with debridement: Mild Bleeding Controlled with: Compression and gauze Patient tolerated procedure well - Additional Wound Wound debrided: Lower lewis Type of Debridement: Selective debridement Anesthesia Used: 5% Lidocaine Gel Depth: Down to and including healthy tissue Percentage of wound debrided: 100 Instrument Used: 3mm curette Tissue Removed: [place] Severity: Limited To Skin Breakdown Amount of bleeding with debridement: Mild Bleeding Controlled with: Compression and gauze Patient tolerated procedure: Patient tolerated procedure well Assessment/Plan Active Problems Neuropathy (Acute) Type 2 diabetes mellitus with peripheral neuropathy (Chronic) Edema of both legs (Acute) Peripheral vascular obstructive disease (Chronic) Lower extremity edema (Acute) Blister of lower extremity without infection (Acute) Assessment: Peripheral vascular occlusive disease. Edema bilateral lower legs. Bilateral lower leg ulcer. Diabetes uncontrolled. Superficial ulcers right posterior knee and right lewis Plan: Patient is to wash the leg with Hibiclens apply his hydrogel Adaptic to the right posterior knee and right lewis cover with gauze dressing tape every day and then Tubigrip single layer to thigh-high and may use Coban and to hold in place at the top. Patient is to follow-up in 1 week
[2017-04-23 10:19] VITALS: BP 168/69; PULSE 80; RESP 18; TEMP 35.5; BMI 47.9
--- NOTE | 2017-04-23 12:23 | PN.PCM_ITS ---
(1) Edema of both legs Status: Acute Current Visit: Yes Code(s): R60.0 - Localized edema (2) Lower extremity edema Status: Acute Current Visit: Yes Code(s): R60.0 - Localized edema (3) Neuropathy Status: Acute Current Visit: Yes Code(s): G62.9 - Polyneuropathy, unspecified (4) Peripheral vascular obstructive disease Status: Chronic Current Visit: Yes Code(s): I73.9 - Peripheral vascular disease, unspecified (5) Type 2 diabetes mellitus with peripheral neuropathy Status: Chronic Current Visit: Yes Code(s): E11.42 - Type 2 diabetes mellitus with diabetic polyneuropathy (6) Blister of lower extremity without infection Status: Acute Current Visit: Yes Qualifiers: Encounter type: subsequent encounter Code(s): S80.829A - Blister (nonthermal), unspecified lower leg, initial encounter Type of Wound Date of Service: 04/23/17 Chief Complaint: Blister behind right knee and a small traumatic abrasion to the right lewis. Patient had surgery [address] Ho on the right lower leg. Tolerated well but from the original surgical wraps developed a blister behind the right knee intiginous area. Also putting on stockings gouged his anterior lewis and either that or hit a drawer. Both areas are superficial. The blister has deflated and is now just skin I removed that and now has an open area on the right posterior knee. And another open ulcer superficial to the right lewis. History of Wound: This 66-year-old diabetic male presents to the wound center today for follow up of bilateral lower extremity small clusters of tiny ulcers that have recently opened back up. Over the last week the patient and his state they have been trying to follow the dressing changes as well as compression to bilateral lower extremities as much as they can. The feel there is an improvement. Patient and his both deny any purulence or malodor to the areas and the patient also denies any feelings of nausea, vomiting, fever, chills. Progress of Wound: Both superficial now ulcers on the right posterior knee and right lower lewis is healed. Will be using just some hydrogel and Adaptic to get the posterior knee to heal .Patient is to continue wearing the Tubigrip single layer thigh high and we did give patient Coban and to keep it up because it keeps slipping down that is what causes the blister. - Physical Exam Vital Signs Temp Pulse Resp BP 96 F L 80 18 168/69 H 04/23/17 10:19 04/23/17 10:19 04/23/17 10:19 04/23/17 10:19 General: Oriented x3, Cooperative, Well developed HEENT: Atraumatic, PERRLA Oral: Moist Mucosa Neck: Supple, No JVD Lungs: Clear to auscultation, Normal air movement Cardiovascular: Regular rate, Regular Rhythm Abdomen: Bowel Sounds Present, Soft, Non Tender, No Hepato-splenomegaly Extremities: No clubbing, No edema Skin: - - Superficial open ulcer from a previous blister right posterior knee Wound Measurements and Assessment WC - Nurse 1 - General Ulcer Measurement Start: 04/16/17 10:15 Freq: Status: Active Protocol: Activity Type Activity Date Activity User E-Sign Co-Sign Detail Recorded Client Recorded Date Recorded By Document 04/23/17 10:19 [facility] [id number] 04/23/17 10:33 [facility] 04/23/17 10:19 Wound Center Nurse 1 [Ulcer Assessment Protocol: WC.WD.LOC] #9 RIGHT LEWIS -Combined with other wound No -Current Size (cm) - Length 0 -Current Size (cm) - Width 0 -Current Size (cm) - Depth 0 -Total Square Cm 0 -Date of Last Picture (Recall this 04/23/17 field) -Photo Taken Yes -Epithelialization Large 67-100% -Tunneling No -Undermining/Tunneling No #8 RIGHT POSTERIOR KNEE (POPLITEAL) -Combined with other wound No -Current Size (cm) - Length 0.3 -Current Size (cm) - Width 0.3 -Current Size (cm) - Depth 0.1 -Total Square Cm 0.09 -Photo Taken No -Tunneling No -Undermining/Tunneling No -Exudate Amt Small (1-33%) -Exudate Type Serosanguineous -Wound Margin Distinct, Outline Attached -Granulation Amt None Present (0 %) -Slough/Fibrin Yes -Necrosis Amt Large (67-100%) -Necrotic Tissue Type Adherent Slough -Structure Exposed None/Limited to Skin Breakdown -Texture (Michelle-wound Skin Appearance) Scarring -Moisture (Michelle-wound Skin Appearance Dry/Scaly ) -Color (Michelle-wound Skin Appearance) Erythema -Temperature (Michelle-wound Skin No Abnormality Appearance) (Pt Warm) -Tenderness on Palpation (Michelle-wound No Skin Appearance) -Ulcer Cleansing Rinsed/ Irrigated with Saline -Foul Odor after Cleansing No -Anesthetic Used 4% Lidocaine Solution [Edema Assessment] -Lower Limb Edema Present Yes -Right Calf (cm) 40 -Right Ankle (cm) 24.4 WC - Nurse 2 - General Ulcer CM Notes Start: 04/16/17 10:15 Freq: Status: Active Protocol: Activity Type Activity Date Activity User E-Sign Co-Sign Detail Recorded Client Recorded Date Recorded By Document 04/23/17 11:25 TM [id number] 04/23/17 11:29 TM 04/23/17 11:25 Wound Center Nurse 2 [Procedure/Treatment] #9 RIGHT LEWIS -Time 11:25 -Correct Patient Yes -Correct Side, Site, Position Yes -Correct Procedure Yes -Procedure Performed Yes -Post Debridement Size (cm) - Length 0 -Post Debridement Size (cm) - Width 0 -Post Debridement Size (cm) - Depth 0 -Total Square Cm 0 -Wound/Ulcer Outcome Healed- Epithelialized -Ulcer Cleansing Rinsed/ Irrigated with Saline -Foul Odor after Cleansing No -Bioengineered Tissue No -Bleeding Controlled with NA -Treatment Response Procedure Tolerated Well #8 RIGHT POSTERIOR KNEE (POPLITEAL) -Time 11:26 -Correct Patient Yes -Correct Side, Site, Position Yes -Correct Procedure Yes -Procedure Performed Yes -Type of Procedure Debridement -Clinical Debridement Subcutaneous -Post Debridement Size (cm) - Length 0.9 -Post Debridement Size (cm) - Width 2.0 -Post Debridement Size (cm) - Depth 0.1 -Total Square Cm 1.80 -Wound/Ulcer Outcome Not Healed -Ulcer Cleansing Rinsed/ Irrigated with Saline -Foul Odor after Cleansing No -Bioengineered Tissue No -Bleeding Controlled with Pressure -Treatment Response Procedure Not Tolerated Well [See Physician Procedure note for Specifics] Pain Scale: 0-10 Numeric [Pain] -Is Patient Pain Free? Yes Musculoskeletal: No Tenderness to Palpation of Joints or Extremities Lymphatic: No Cervical, Supraclavicular, or Inguinal Adenopathy Neurological: Cranial nerves II-XII grossly intact, Neuro grossly intact Psych/Mental Status: Normal Affect, Appropriate Debridement Note Post-Debridement Measurements/Treatment WC - Nurse 2 - General Ulcer CM Notes Start: 04/16/17 10:15 Freq: Status: Active Protocol: Activity Type Activity Date Activity User E-Sign Co-Sign Detail Recorded Client Recorded Date Recorded By Document 04/16/17 11:14 MW [id number] 04/16/17 11:21 MW Document 04/23/17 11:25 TM [id number] 04/23/17 11:29 TM 04/16/17 04/23/17 11:14 11:25 Wound Center Nurse 2 #9 RIGHT LEWIS -Time 11:16 11:25 -Correct Patient Yes Yes -Correct Side, Site, Position Yes Yes -Correct Procedure Yes Yes -Procedure Performed Yes Yes -Type of Procedure Debridement -Clinical Debridement Selective -Post Debridement Size (cm) - Length 0.6 0 -Post Debridement Size (cm) - Width 0.6 0 -Post Debridement Size (cm) - Depth 0.1 0 -Total Square Cm 0.36 0 -Wound/Ulcer Outcome Not Healed Healed- Epithelialized -Ulcer Cleansing Rinsed/ Rinsed/ Irrigated with Irrigated with Saline Saline -Foul Odor after Cleansing No No -Bioengineered Tissue No No -Bleeding Controlled with Pressure NA -Treatment Response Procedure Procedure Tolerated Well Tolerated Well #8 RIGHT POSTERIOR KNEE (POPLITEAL) -Time 11:16 11:26 -Correct Patient Yes Yes -Correct Side, Site, Position Yes Yes -Correct Procedure Yes Yes -Procedure Performed Yes Yes -Type of Procedure Debridement Debridement -Clinical Debridement Selective Subcutaneous -Post Debridement Size (cm) - Length 1.7 0.9 -Post Debridement Size (cm) - Width 5.5 2.0 -Post Debridement Size (cm) - Depth 0.1 0.1 -Total Square Cm 9.35 1.80 -Wound/Ulcer Outcome Not Healed Not Healed -Ulcer Cleansing Rinsed/ Rinsed/ Irrigated with Irrigated with Saline Saline -Foul Odor after Cleansing No No -Bioengineered Tissue No No -Cetacaine [place] No -Bleeding Controlled with Pressure Pressure -Treatment Response Procedure Procedure Not Tolerated Well Tolerated Well Pain Scale: 0-10 Numeric Is Patient Pain Free? Yes Yes Wound debrided: ulcer posterior knee Laterality: Right Anesthesia Used: 5% Lidocaine Gel Depth: Down to and including healthy tissue, in the subcutaneous layer Percentage of wound debrided: 100 Instrument Used: 3mm curette Tissue Removed: Devitalized tissue fibrin Severity: Limited To Skin Breakdown Amount of bleeding with debridement: Mild Bleeding Controlled with: Compression and gauze Patient tolerated procedure well Assessment/Plan Active Problems Type 2 diabetes mellitus with peripheral neuropathy (Chronic) Neuropathy (Acute) Blister of lower extremity without infection (Acute) Lower extremity edema (Acute) Peripheral vascular obstructive disease (Chronic) Edema of both legs (Acute) Assessment: Peripheral vascular occlusive disease. Edema bilateral lower legs. Bilateral lower leg ulcer. Diabetes uncontrolled. Superficial ulcers right posterior knee and right lewis Plan: Patient is to wash the leg with Hibiclens apply his hydrogel Adaptic to the right posterior knee ,cover with gauze dressing tape every day and then Tubigrip single layer to thigh-high and may use Coban and to hold in place at the top. Patient is to follow-up in 1 week
[2017-04-30 11:25] VITALS: BP 150/78; PULSE 76; RESP 18; TEMP 34.7; BMI 47.9
--- NOTE | 2017-04-30 12:05 | PN.PCM_ITS ---
(1) Edema of both legs Status: Acute Current Visit: Yes Code(s): R60.0 - Localized edema (2) Lower extremity edema Status: Acute Current Visit: Yes Code(s): R60.0 - Localized edema (3) Neuropathy Status: Acute Current Visit: Yes Code(s): G62.9 - Polyneuropathy, unspecified (4) Peripheral vascular obstructive disease Status: Chronic Current Visit: Yes Code(s): I73.9 - Peripheral vascular disease, unspecified (5) Type 2 diabetes mellitus with peripheral neuropathy Status: Chronic Current Visit: Yes Code(s): E11.42 - Type 2 diabetes mellitus with diabetic polyneuropathy (6) Blister of lower extremity without infection Status: Acute Current Visit: Yes Qualifiers: Encounter type: subsequent encounter Code(s): S80.829A - Blister (nonthermal), unspecified lower leg, initial encounter Type of Wound Date of Service: 04/30/17 Chief Complaint: Blister behind right knee and a small traumatic abrasion to the right lewis. Patient had surgery [address] Ho on the right lower leg. Tolerated well but from the original surgical wraps developed a blister behind the right knee intiginous area. Also putting on stockings gouged his anterior lewis and either that or hit a drawer. Both areas are superficial. The blister has deflated and is now just skin I removed that and now has an open area on the right posterior knee. And another open ulcer superficial to the right lewis. History of Wound: This 66-year-old diabetic male presents to the wound center today for follow up of bilateral lower extremity small clusters of tiny ulcers that have recently opened back up. Over the last week the patient and his state they have been trying to follow the dressing changes as well as compression to bilateral lower extremities as much as they can. The feel there is an improvement. Patient and his both deny any purulence or malodor to the areas and the patient also denies any feelings of nausea, vomiting, fever, chills. Progress of Wound: Both superficial now ulcers on the right posterior knee and right lower lewis is healed. Will be using just some hydrogel and Adaptic to get the posterior knee to heal . Will stop using the right leg Tubigrip up to the thigh apparently the cannot get it to stay up even with the Covan and it rolls down and cuts into the back of the knee causing the ulcer not to heal. - Physical Exam Vital Signs Temp Pulse Resp BP 94.4 F L 76 18 150/78 H 04/30/17 11:25 04/30/17 11:25 04/30/17 11:25 04/30/17 11:25 General: Oriented x3, Cooperative, Well developed HEENT: Atraumatic, PERRLA Oral: Moist Mucosa Neck: Supple, No JVD Lungs: Clear to auscultation, Normal air movement Cardiovascular: Regular rate, Regular Rhythm Abdomen: Bowel Sounds Present, Soft, Non Tender, No Hepato-splenomegaly Extremities: No clubbing, No edema Skin: Ulcer/ Wound - Behind right knee Wound Measurements and Assessment WC - Nurse 1 - General Ulcer Measurement Start: 04/16/17 10:15 Freq: Status: Active Protocol: Activity Type Activity Date Activity User E-Sign Co-Sign Detail Recorded Client Recorded Date Recorded By Document 04/30/17 11:25 DV [id number] 04/30/17 11:33 DV 04/30/17 11:25 Wound Center Nurse 1 [Ulcer Assessment] #8 RIGHT POSTERIOR KNEE (POPLITEAL) -Combined with other wound No -Current Size (cm) - Length 0.8 -Current Size (cm) - Width 2.0 -Current Size (cm) - Depth 0.1 -Total Square Cm 1.60 -Photo Taken No -Epithelialization None Present -Tunneling No -Undermining/Tunneling No -Circular Undermining No -Classification - Thickness Full Thickness without Exposed Support Structure -Exudate Amt Small (1-33%) -Exudate Type Serosanguineous -Wound Margin Distinct, Outline Attached -Granulation Amt None Present (0 %) -Granulation Quality N/A -Slough/Fibrin Yes -Necrosis Amt Large (67-100%) -Necrotic Tissue Type Adherent Slough -Structure Exposed None/Limited to Skin Breakdown -Texture (Michelle-wound Skin Appearance) Assessed Localized Edema -Moisture (Michelle-wound Skin Appearance Assessed ) Weeping -Color (Michelle-wound Skin Appearance) Not Assessed Erythema -Temperature (Michelle-wound Skin No Abnormality Appearance) (Pt Warm) -Tenderness on Palpation (Michelle-wound No Skin Appearance) -Ulcer Cleansing Rinsed/ Irrigated with Saline -Foul Odor after Cleansing No -Anesthetic Used 4% Lidocaine Solution [Edema Assessment] -Lower Limb Edema Present Yes -Right Calf (cm) 40.5 -Right Ankle (cm) 23.5 WC - Nurse 2 - General Ulcer CM Notes Start: 04/16/17 10:15 Freq: Status: Active Protocol: Activity Type Activity Date Activity User E-Sign Co-Sign Detail Recorded Client Recorded Date Recorded By Document 04/30/17 11:50 MW [id number] 04/30/17 11:54 MW 04/30/17 11:50 Wound Center Nurse 2 [Procedure/Treatment] #8 RIGHT POSTERIOR KNEE (POPLITEAL) -Time 11:50 -Correct Patient Yes -Correct Side, Site, Position Yes -Correct Procedure Yes -Procedure Performed Yes -Type of Procedure Debridement -Clinical Debridement Subcutaneous -Post Debridement Size (cm) - Length 1.0 -Post Debridement Size (cm) - Width 2.2 -Post Debridement Size (cm) - Depth 0.1 -Total Square Cm 2.20 -Wound/Ulcer Outcome Not Healed -Ulcer Cleansing Rinsed/ Irrigated with Saline -Foul Odor after Cleansing No -Bioengineered Tissue No -Bleeding Controlled with Pressure -Treatment Response Procedure Tolerated Well [See Physician Procedure note for Specifics] Pain Scale: 0-10 Numeric [Pain] -Is Patient Pain Free? Yes Musculoskeletal: No Tenderness to Palpation of Joints or Extremities Lymphatic: No Cervical, Supraclavicular, or Inguinal Adenopathy Neurological: Cranial nerves II-XII grossly intact, Neuro grossly intact Psych/Mental Status: Normal Affect, Appropriate Debridement Note Post-Debridement Measurements/Treatment WC - Nurse 2 - General Ulcer CM Notes Start: 04/16/17 10:15 Freq: Status: Active Protocol: Activity Type Activity Date Activity User E-Sign Co-Sign Detail Recorded Client Recorded Date Recorded By Document 04/16/17 11:14 MW [id number] 04/16/17 11:21 MW Document 04/23/17 11:25 TM [id number] 04/23/17 11:29 TM Document 04/30/17 11:50 MW [id number] 04/30/17 11:54 MW 04/16/17 04/23/17 04/30/17 11:14 11:25 11:50 Wound Center Nurse 2 #9 RIGHT LEWIS -Time 11:16 11:25 -Correct Patient Yes Yes -Correct Side, Site, Position Yes Yes -Correct Procedure Yes Yes -Procedure Performed Yes Yes -Type of Procedure Debridement -Clinical Debridement Selective -Post Debridement Size (cm) - Length 0.6 0 -Post Debridement Size (cm) - Width 0.6 0 -Post Debridement Size (cm) - Depth 0.1 0 -Total Square Cm 0.36 0 -Wound/Ulcer Outcome Not Healed Healed- Epithelialized -Ulcer Cleansing Rinsed/ Rinsed/ Irrigated with Irrigated with Saline Saline -Foul Odor after Cleansing No No -Bioengineered Tissue No No -Bleeding Controlled with Pressure NA -Treatment Response Procedure Procedure Tolerated Well Tolerated Well #8 RIGHT POSTERIOR KNEE (POPLITEAL) -Time 11:16 11:26 11:50 -Correct Patient Yes Yes Yes -Correct Side, Site, Position Yes Yes Yes -Correct Procedure Yes Yes Yes -Procedure Performed Yes Yes Yes -Type of Procedure Debridement Debridement Debridement -Clinical Debridement Selective Subcutaneous Subcutaneous -Post Debridement Size (cm) - Length 1.7 0.9 1.0 -Post Debridement Size (cm) - Width 5.5 2.0 2.2 -Post Debridement Size (cm) - Depth 0.1 0.1 0.1 -Total Square Cm 9.35 1.80 2.20 -Wound/Ulcer Outcome Not Healed Not Healed Not Healed -Ulcer Cleansing Rinsed/ Rinsed/ Rinsed/ Irrigated with Irrigated with Irrigated with Saline Saline Saline -Foul Odor after Cleansing No No No -Bioengineered Tissue No No No -Cetacaine [place] No -Bleeding Controlled with Pressure Pressure Pressure -Treatment Response Procedure Procedure Not Procedure Tolerated Well Tolerated Well Tolerated Well Pain Scale: 0-10 Numeric Is Patient Pain Free? Yes Yes Yes Wound debrided: 9 right knee ulcer Anesthesia Used: 5% Lidocaine Gel Depth: Down to and including healthy tissue, in the subcutaneous layer Percentage of wound debrided: 100 Instrument Used: 5mm curette Tissue Removed: Fibrin Severity: Limited To Skin Breakdown Amount of bleeding with debridement: Mild Bleeding Controlled with: Compression and gauze Assessment/Plan Active Problems Type 2 diabetes mellitus with peripheral neuropathy (Chronic) Neuropathy (Acute) Blister of lower extremity without infection (Acute) Lower extremity edema (Acute) Peripheral vascular obstructive disease (Chronic) Edema of both legs (Acute) Assessment: Peripheral vascular occlusive disease. Edema bilateral lower legs. Bilateral lower leg ulcer. Diabetes uncontrolled. Superficial ulcers right posterior knee and right lewis Plan: Patient is to wash the leg with Hibiclens apply his hydrogel Adaptic to the right posterior knee ,cover with gauze dressing tape every day and then Tubigrip single layer to knee below the dressing. follow-up in 1 week
[2017-05-07 11:07] VITALS: BP 138/51; PULSE 84; RESP 18; TEMP 35.3; BMI 47.9
--- NOTE | 2017-05-07 11:40 | PCM.WC.PN ---
(1) Edema of both legs Status: Chronic Current Visit: Yes Code(s): R60.0 - Localized edema (2) Lower extremity edema Status: Acute Current Visit: Yes Code(s): R60.0 - Localized edema (3) Neuropathy Status: Acute Current Visit: Yes Code(s): G62.9 - Polyneuropathy, unspecified (4) Peripheral vascular obstructive disease Status: Chronic Current Visit: Yes Code(s): I73.9 - Peripheral vascular disease, unspecified (5) Type 2 diabetes mellitus with peripheral neuropathy Status: Chronic Current Visit: Yes Code(s): E11.42 - Type 2 diabetes mellitus with diabetic polyneuropathy (6) Blister of lower extremity without infection Status: Acute Current Visit: No Qualifiers: Encounter type: subsequent encounter Code(s): S80.829A - Blister (nonthermal), unspecified lower leg, initial encounter Type of Wound Date of Service: 05/07/17 Chief Complaint: Blister behind right knee and a small traumatic abrasion to the right lewis. Patient had surgery [address] Ho on the right lower leg. Tolerated well but from the original surgical wraps developed a blister behind the right knee intiginous area. Also putting on stockings gouged his anterior lewis and either that or hit a drawer. Both areas are superficial. The blister has deflated and is now just skin I removed that and now has an open area on the right posterior knee. And another open ulcer superficial to the right lewis. History of Wound: This 66-year-old diabetic male presents to the wound center today for follow up of bilateral lower extremity small clusters of tiny ulcers that have recently opened back up. Over the last week the patient and his state they have been trying to follow the dressing changes as well as compression to bilateral lower extremities as much as they can. The feel there is an improvement. Patient and his both deny any purulence or malodor to the areas and the patient also denies any feelings of nausea, vomiting, fever, chills. Progress of Wound: Both superficial now ulcers on the right posterior knee and right lower lewis is healed. The posterior right knee is healing but very slowly will try a Aquacel extra to finish off the ulcer. Will stop using the right leg Tubigrip up to the thigh apparently the cannot get it to stay up even with the Covan and it rolls down and cuts into the back of the knee causing the ulcer not to heal. - Physical Exam Vital Signs Temp Pulse Resp BP 95.5 F L 84 18 138/51 H 05/07/17 11:07 05/07/17 11:07 05/07/17 11:07 05/07/17 11:07 General: Oriented x3, Cooperative, Well developed HEENT: Atraumatic, PERRLA Oral: Moist Mucosa Neck: Supple, No JVD Lungs: Clear to auscultation, Normal air movement Cardiovascular: Regular rate, Regular Rhythm Abdomen: Bowel Sounds Present, Soft, Non Tender, No Hepato-splenomegaly Extremities: No clubbing, No edema, - - Posterior ulcer behind the knee Wound Measurements and Assessment WC - Nurse 1 - General Ulcer Measurement Start: 04/16/17 10:15 Freq: Status: Active Protocol: Activity Type Activity Date Activity User E-Sign Co-Sign Detail Recorded Client Recorded Date Recorded By Document 05/07/17 11:07 [facility] [id number] 05/07/17 11:15 [facility] 05/07/17 11:07 Wound Center Nurse 1 [Ulcer Assessment] #8 RIGHT POSTERIOR KNEE (POPLITEAL) -Combined with other wound No -Current Size (cm) - Length 0.6 -Current Size (cm) - Width 0.7 -Current Size (cm) - Depth 0.1 -Total Square Cm 0.42 -Photo Taken No -Epithelialization None Present -Tunneling No -Undermining/Tunneling No -Exudate Amt Small (1-33%) -Exudate Type Serous -Wound Margin Distinct, Outline Attached -Granulation Amt None Present (0 %) -Slough/Fibrin Yes -Necrosis Amt Large (67-100%) -Necrotic Tissue Type Adherent Slough -Structure Exposed N/A -Texture (Michelle-wound Skin Appearance) Scarring -Moisture (Michelle-wound Skin Appearance Assessed ) -Color (Michelle-wound Skin Appearance) Erythema -Temperature (Michelle-wound Skin No Abnormality Appearance) (Pt Warm) -Tenderness on Palpation (Michelle-wound No Skin Appearance) -Ulcer Cleansing Rinsed/ Irrigated with Saline -Foul Odor after Cleansing No -Anesthetic Used 4% Lidocaine Solution [Edema Assessment] -Lower Limb Edema Present Yes -Right Calf (cm) 40.9 -Right Ankle (cm) 24 -Left Calf (cm) 44 -Left Ankle (cm) 25.4 WC - Nurse 2 - General Ulcer CM Notes Start: 04/16/17 10:15 Freq: Status: Active Protocol: Activity Type Activity Date Activity User E-Sign Co-Sign Detail Recorded Client Recorded Date Recorded By Document 05/07/17 11:29 MW [id number] 05/07/17 11:30 MW 05/07/17 11:29 Wound Center Nurse 2 [Procedure/Treatment] #8 RIGHT POSTERIOR KNEE (POPLITEAL) -Time 11:30 -Correct Patient Yes -Correct Side, Site, Position Yes -Correct Procedure Yes -Procedure Performed Yes -Type of Procedure Debridement -Clinical Debridement Subcutaneous -Post Debridement Size (cm) - Length 0.3 -Post Debridement Size (cm) - Width 0.7 -Post Debridement Size (cm) - Depth 0.1 -Total Square Cm 0.21 -Wound/Ulcer Outcome Not Healed -Ulcer Cleansing Rinsed/ Irrigated with Saline -Foul Odor after Cleansing No -Bioengineered Tissue No -Bleeding Controlled with Pressure -Treatment Response Procedure Tolerated Well [See Physician Procedure note for Specifics] Pain Scale: 0-10 Numeric [Pain] -Is Patient Pain Free? Yes Musculoskeletal: No Tenderness to Palpation of Joints or Extremities Lymphatic: No Cervical, Supraclavicular, or Inguinal Adenopathy Neurological: Cranial nerves II-XII grossly intact, Neuro grossly intact Psych/Mental Status: Normal Affect, Appropriate Debridement Note Post-Debridement Measurements/Treatment WC - Nurse 2 - General Ulcer CM Notes Start: 04/16/17 10:15 Freq: Status: Active Protocol: Activity Type Activity Date Activity User E-Sign Co-Sign Detail Recorded Client Recorded Date Recorded By Document 04/16/17 11:14 MW [id number] 04/16/17 11:21 MW Document 04/23/17 11:25 TM [id number] 04/23/17 11:29 TM Document 04/30/17 11:50 MW [id number] 04/30/17 11:54 MW Document 05/07/17 11:29 MW [id number] 05/07/17 11:30 MW 04/16/17 04/23/17 04/30/17 11:14 11:25 11:50 Wound Center Nurse 2 #9 RIGHT LEWIS -Time 11:16 11:25 -Correct Patient Yes Yes -Correct Side, Site, Position Yes Yes -Correct Procedure Yes Yes -Procedure Performed Yes Yes -Type of Procedure Debridement -Clinical Debridement Selective -Post Debridement Size (cm) - Length 0.6 0 -Post Debridement Size (cm) - Width 0.6 0 -Post Debridement Size (cm) - Depth 0.1 0 -Total Square Cm 0.36 0 -Wound/Ulcer Outcome Not Healed Healed- Epithelialized -Ulcer Cleansing Rinsed/ Rinsed/ Irrigated with Irrigated with Saline Saline -Foul Odor after Cleansing No No -Bioengineered Tissue No No -Bleeding Controlled with Pressure NA -Treatment Response Procedure Procedure Tolerated Well Tolerated Well #8 RIGHT POSTERIOR KNEE (POPLITEAL) -Time 11:16 11:26 11:50 -Correct Patient Yes Yes Yes -Correct Side, Site, Position Yes Yes Yes -Correct Procedure Yes Yes Yes -Procedure Performed Yes Yes Yes -Type of Procedure Debridement Debridement Debridement -Clinical Debridement Selective Subcutaneous Subcutaneous -Post Debridement Size (cm) - Length 1.7 0.9 1.0 -Post Debridement Size (cm) - Width 5.5 2.0 2.2 -Post Debridement Size (cm) - Depth 0.1 0.1 0.1 -Total Square Cm 9.35 1.80 2.20 -Wound/Ulcer Outcome Not Healed Not Healed Not Healed -Ulcer Cleansing Rinsed/ Rinsed/ Rinsed/ Irrigated with Irrigated with Irrigated with Saline Saline Saline -Foul Odor after Cleansing No No No -Bioengineered Tissue No No No -Cetacaine Max No -Bleeding Controlled with Pressure Pressure Pressure -Treatment Response Procedure Procedure Not Procedure Tolerated Well Tolerated Well Tolerated Well Pain Scale: 0-10 Numeric Is Patient Pain Free? Yes Yes Yes 05/07/17 11:29 Wound Center Nurse 2 #9 RIGHT LEWIS -Time -Correct Patient -Correct Side, Site, Position -Correct Procedure -Procedure Performed -Type of Procedure -Clinical Debridement -Post Debridement Size (cm) - Length -Post Debridement Size (cm) - Width -Post Debridement Size (cm) - Depth -Total Square Cm -Wound/Ulcer Outcome -Ulcer Cleansing -Foul Odor after Cleansing -Bioengineered Tissue -Bleeding Controlled with -Treatment Response #8 RIGHT POSTERIOR KNEE (POPLITEAL) -Time 11:30 -Correct Patient Yes -Correct Side, Site, Position Yes -Correct Procedure Yes -Procedure Performed Yes -Type of Procedure Debridement -Clinical Debridement Subcutaneous -Post Debridement Size (cm) - Length 0.3 -Post Debridement Size (cm) - Width 0.7 -Post Debridement Size (cm) - Depth 0.1 -Total Square Cm 0.21 -Wound/Ulcer Outcome Not Healed -Ulcer Cleansing Rinsed/ Irrigated with Saline -Foul Odor after Cleansing No -Bioengineered Tissue No -Cetacaine Max -Bleeding Controlled with Pressure -Treatment Response Procedure Tolerated Well Pain Scale: 0-10 Numeric Is Patient Pain Free? Yes Wound debrided: Posterior knee ulcer Type of Debridement: Excisional debridement Anesthesia Used: 5% Lidocaine Gel Depth: Down to and including healthy tissue, in the subcutaneous layer Percentage of wound debrided: 100 Instrument Used: 3mm curette Tissue Removed: And fibrin Severity: Limited To Skin Breakdown Amount of bleeding with debridement: Mild Bleeding Controlled with: Compression and gauze Patient tolerated procedure well Assessment/Plan Active Problems Type 2 diabetes mellitus with peripheral neuropathy (Chronic) Neuropathy (Acute) Lower extremity edema (Acute) Peripheral vascular obstructive disease (Chronic) Edema of both legs (Chronic) Assessment: Peripheral vascular occlusive disease. Edema bilateral lower legs. Bilateral lower leg ulcer. Diabetes uncontrolled. Superficial ulcers right posterior knee and right lewis Plan: Patient is to wash the leg with Hibiclens apply Aquacel extra moistened Adaptic to the right posterior knee ,cover with gauze dressing tape every day and then Tubigrip single layer to knee below the dressing. follow-up in 1 week
--- NOTE | 2017-05-07 11:46 | PN.PCM_ITS ---
(1) Edema of both legs Status: Chronic Current Visit: Yes Code(s): R60.0 - Localized edema (2) Lower extremity edema Status: Acute Current Visit: Yes Code(s): R60.0 - Localized edema (3) Neuropathy Status: Acute Current Visit: Yes Code(s): G62.9 - Polyneuropathy, unspecified (4) Peripheral vascular obstructive disease Status: Chronic Current Visit: Yes Code(s): I73.9 - Peripheral vascular disease, unspecified (5) Type 2 diabetes mellitus with peripheral neuropathy Status: Chronic Current Visit: Yes Code(s): E11.42 - Type 2 diabetes mellitus with diabetic polyneuropathy (6) Blister of lower extremity without infection Status: Acute Current Visit: No Qualifiers: Encounter type: subsequent encounter Code(s): S80.829A - Blister (nonthermal), unspecified lower leg, initial encounter Type of Wound Date of Service: 05/07/17 Chief Complaint: Blister behind right knee and a small traumatic abrasion to the right lewis. Patient had surgery [address] Ho on the right lower leg. Tolerated well but from the original surgical wraps developed a blister behind the right knee intiginous area. Also putting on stockings gouged his anterior lewis and either that or hit a drawer. Both areas are superficial. The blister has deflated and is now just skin I removed that and now has an open area on the right posterior knee. And another open ulcer superficial to the right lewis. History of Wound: This 66-year-old diabetic male presents to the wound center today for follow up of bilateral lower extremity small clusters of tiny ulcers that have recently opened back up. Over the last week the patient and his state they have been trying to follow the dressing changes as well as compression to bilateral lower extremities as much as they can. The feel there is an improvement. Patient and his both deny any purulence or malodor to the areas and the patient also denies any feelings of nausea, vomiting, fever, chills. Progress of Wound: Both superficial now ulcers on the right posterior knee and right lower lewis is healed. The posterior right knee is healing but very slowly will try a Aquacel extra to finish off the ulcer. Will stop using the right leg Tubigrip up to the thigh apparently the cannot get it to stay up even with the Covan and it rolls down and cuts into the back of the knee causing the ulcer not to heal. - Physical Exam Vital Signs Temp Pulse Resp BP 95.5 F L 84 18 138/51 H 05/07/17 11:07 05/07/17 11:07 05/07/17 11:07 05/07/17 11:07 General: Oriented x3, Cooperative, Well developed HEENT: Atraumatic, PERRLA Oral: Moist Mucosa Neck: Supple, No JVD Lungs: Clear to auscultation, Normal air movement Cardiovascular: Regular rate, Regular Rhythm Abdomen: Bowel Sounds Present, Soft, Non Tender, No Hepato-splenomegaly Extremities: No clubbing, No edema, - - Posterior ulcer behind the knee Wound Measurements and Assessment WC - Nurse 1 - General Ulcer Measurement Start: 04/16/17 10:15 Freq: Status: Active Protocol: Activity Type Activity Date Activity User E-Sign Co-Sign Detail Recorded Client Recorded Date Recorded By Document 05/07/17 11:07 [facility] [id number] 05/07/17 11:15 [facility] 05/07/17 11:07 Wound Center Nurse 1 [Ulcer Assessment] #8 RIGHT POSTERIOR KNEE (POPLITEAL) -Combined with other wound No -Current Size (cm) - Length 0.6 -Current Size (cm) - Width 0.7 -Current Size (cm) - Depth 0.1 -Total Square Cm 0.42 -Photo Taken No -Epithelialization None Present -Tunneling No -Undermining/Tunneling No -Exudate Amt Small (1-33%) -Exudate Type Serous -Wound Margin Distinct, Outline Attached -Granulation Amt None Present (0 %) -Slough/Fibrin Yes -Necrosis Amt Large (67-100%) -Necrotic Tissue Type Adherent Slough -Structure Exposed N/A -Texture (Michelle-wound Skin Appearance) Scarring -Moisture (Michelle-wound Skin Appearance Assessed ) -Color (Michelle-wound Skin Appearance) Erythema -Temperature (Michelle-wound Skin No Abnormality Appearance) (Pt Warm) -Tenderness on Palpation (Michelle-wound No Skin Appearance) -Ulcer Cleansing Rinsed/ Irrigated with Saline -Foul Odor after Cleansing No -Anesthetic Used 4% Lidocaine Solution [Edema Assessment] -Lower Limb Edema Present Yes -Right Calf (cm) 40.9 -Right Ankle (cm) 24 -Left Calf (cm) 44 -Left Ankle (cm) 25.4 WC - Nurse 2 - General Ulcer CM Notes Start: 04/16/17 10:15 Freq: Status: Active Protocol: Activity Type Activity Date Activity User E-Sign Co-Sign Detail Recorded Client Recorded Date Recorded By Document 05/07/17 11:29 MW [id number] 05/07/17 11:30 MW 05/07/17 11:29 Wound Center Nurse 2 [Procedure/Treatment] #8 RIGHT POSTERIOR KNEE (POPLITEAL) -Time 11:30 -Correct Patient Yes -Correct Side, Site, Position Yes -Correct Procedure Yes -Procedure Performed Yes -Type of Procedure Debridement -Clinical Debridement Subcutaneous -Post Debridement Size (cm) - Length 0.3 -Post Debridement Size (cm) - Width 0.7 -Post Debridement Size (cm) - Depth 0.1 -Total Square Cm 0.21 -Wound/Ulcer Outcome Not Healed -Ulcer Cleansing Rinsed/ Irrigated with Saline -Foul Odor after Cleansing No -Bioengineered Tissue No -Bleeding Controlled with Pressure -Treatment Response Procedure Tolerated Well [See Physician Procedure note for Specifics] Pain Scale: 0-10 Numeric [Pain] -Is Patient Pain Free? Yes Musculoskeletal: No Tenderness to Palpation of Joints or Extremities Lymphatic: No Cervical, Supraclavicular, or Inguinal Adenopathy Neurological: Cranial nerves II-XII grossly intact, Neuro grossly intact Psych/Mental Status: Normal Affect, Appropriate Debridement Note Post-Debridement Measurements/Treatment WC - Nurse 2 - General Ulcer CM Notes Start: 04/16/17 10:15 Freq: Status: Active Protocol: Activity Type Activity Date Activity User E-Sign Co-Sign Detail Recorded Client Recorded Date Recorded By Document 04/16/17 11:14 MW [id number] 04/16/17 11:21 MW Document 04/23/17 11:25 TM [id number] 04/23/17 11:29 TM Document 04/30/17 11:50 MW [id number] 04/30/17 11:54 MW Document 05/07/17 11:29 MW [id number] 05/07/17 11:30 MW 04/16/17 04/23/17 04/30/17 11:14 11:25 11:50 Wound Center Nurse 2 #9 RIGHT LEWIS -Time 11:16 11:25 -Correct Patient Yes Yes -Correct Side, Site, Position Yes Yes -Correct Procedure Yes Yes -Procedure Performed Yes Yes -Type of Procedure Debridement -Clinical Debridement Selective -Post Debridement Size (cm) - Length 0.6 0 -Post Debridement Size (cm) - Width 0.6 0 -Post Debridement Size (cm) - Depth 0.1 0 -Total Square Cm 0.36 0 -Wound/Ulcer Outcome Not Healed Healed- Epithelialized -Ulcer Cleansing Rinsed/ Rinsed/ Irrigated with Irrigated with Saline Saline -Foul Odor after Cleansing No No -Bioengineered Tissue No No -Bleeding Controlled with Pressure NA -Treatment Response Procedure Procedure Tolerated Well Tolerated Well #8 RIGHT POSTERIOR KNEE (POPLITEAL) -Time 11:16 11:26 11:50 -Correct Patient Yes Yes Yes -Correct Side, Site, Position Yes Yes Yes -Correct Procedure Yes Yes Yes -Procedure Performed Yes Yes Yes -Type of Procedure Debridement Debridement Debridement -Clinical Debridement Selective Subcutaneous Subcutaneous -Post Debridement Size (cm) - Length 1.7 0.9 1.0 -Post Debridement Size (cm) - Width 5.5 2.0 2.2 -Post Debridement Size (cm) - Depth 0.1 0.1 0.1 -Total Square Cm 9.35 1.80 2.20 -Wound/Ulcer Outcome Not Healed Not Healed Not Healed -Ulcer Cleansing Rinsed/ Rinsed/ Rinsed/ Irrigated with Irrigated with Irrigated with Saline Saline Saline -Foul Odor after Cleansing No No No -Bioengineered Tissue No No No -Cetacaine Outing No -Bleeding Controlled with Pressure Pressure Pressure -Treatment Response Procedure Procedure Not Procedure Tolerated Well Tolerated Well Tolerated Well Pain Scale: 0-10 Numeric Is Patient Pain Free? Yes Yes Yes 05/07/17 11:29 Wound Center Nurse 2 #9 RIGHT LEWIS -Time -Correct Patient -Correct Side, Site, Position -Correct Procedure -Procedure Performed -Type of Procedure -Clinical Debridement -Post Debridement Size (cm) - Length -Post Debridement Size (cm) - Width -Post Debridement Size (cm) - Depth -Total Square Cm -Wound/Ulcer Outcome -Ulcer Cleansing -Foul Odor after Cleansing -Bioengineered Tissue -Bleeding Controlled with -Treatment Response #8 RIGHT POSTERIOR KNEE (POPLITEAL) -Time 11:30 -Correct Patient Yes -Correct Side, Site, Position Yes -Correct Procedure Yes -Procedure Performed Yes -Type of Procedure Debridement -Clinical Debridement Subcutaneous -Post Debridement Size (cm) - Length 0.3 -Post Debridement Size (cm) - Width 0.7 -Post Debridement Size (cm) - Depth 0.1 -Total Square Cm 0.21 -Wound/Ulcer Outcome Not Healed -Ulcer Cleansing Rinsed/ Irrigated with Saline -Foul Odor after Cleansing No -Bioengineered Tissue No -Cetacaine Outing -Bleeding Controlled with Pressure -Treatment Response Procedure Tolerated Well Pain Scale: 0-10 Numeric Is Patient Pain Free? Yes Wound debrided: Posterior knee ulcer Type of Debridement: Excisional debridement Anesthesia Used: 5% Lidocaine Gel Depth: Down to and including healthy tissue, in the subcutaneous layer Percentage of wound debrided: 100 Instrument Used: 3mm curette Tissue Removed: And fibrin Severity: Limited To Skin Breakdown Amount of bleeding with debridement: Mild Bleeding Controlled with: Compression and gauze Patient tolerated procedure well Assessment/Plan Active Problems Type 2 diabetes mellitus with peripheral neuropathy (Chronic) Neuropathy (Acute) Lower extremity edema (Acute) Peripheral vascular obstructive disease (Chronic) Edema of both legs (Chronic) Assessment: Peripheral vascular occlusive disease. Edema bilateral lower legs. Bilateral lower leg ulcer. Diabetes uncontrolled. Superficial ulcers right posterior knee and right lewis Plan: Patient is to wash the leg with Hibiclens apply Aquacel extra moistened Adaptic to the right posterior knee ,cover with gauze dressing tape every day and then Tubigrip single layer to knee below the dressing. follow-up in 1 week
== END 2017-05-12 23:59 ==
LOC: WC 11:00
PROVIDERS: Family Provider Internal Medicine; PCP Internal Medicine; Visit Provider Nurse Practitioner
DX: E11.622 Type 2 diabetes mellitus with other skin ulcer (principal); E11.42 Type 2 diabetes mellitus with diabetic polyneuropathy; R60.0 Localized edema; E11.51 Type 2 diabetes mellitus with diabetic peripheral angiopathy without gangrene; S80.811A Abrasion, right lower leg, initial encounter; X58.XXXA Exposure to other specified factors, initial encounter; E11.65 Type 2 diabetes mellitus with hyperglycemia; L97.811 Non-pressure chronic ulcer of other part of right lower leg limited to breakdown of skin
CPT/HCPCS: 11042; 97597

== ENCOUNTER → 2017-05-26 10:47 | Outpatient (CLI) | payer MEDICARE, SELFPAY ==
--- NOTE | 2017-05-26 10:51 | NM_ITS ---
Exam: Gastric emptying study. HISTORY: Functional diarrhea. COMPARISON: None TECHNIQUE: Patient was fed a meal of 1 mCi technetium sulfur colloid in egg. Imaging was performed for a total of 60 minutes. FINDINGS: There is a linear gastric emptying curve which is within normal limits. The T1/2 of gastric emptying is 55 minutes which is well within normal limits. NM/Gastric Emptying Study IMPRESSION: Normal solid gastric emptying study. Electronically Signed: Indra Harris MD at 13:11 EDT , Service support ,
== END ==
PROVIDERS: Family Provider Internal Medicine; PCP Internal Medicine; Visit Provider Internal Medicine Gastroenterology
DX: R11.2 Nausea with vomiting, unspecified (principal); K21.9 Gastro-esophageal reflux disease without esophagitis; E11.9 Type 2 diabetes mellitus without complications; K59.1 Functional diarrhea
CPT/HCPCS: 78264; A9541

== ENCOUNTER 2017-06-08 14:00 | Outpatient (RCR) | payer MEDICARE, SELFPAY ==
[2017-05-13 00:51] VITALS: BP 168/69; PULSE 84; RESP 18; TEMP 35.3; BMI 47.9
[2017-05-14 11:26] VITALS: BP 149/75; PULSE 77; RESP 20; TEMP 36; BMI 47.9
--- NOTE | 2017-05-14 13:55 | PCM.WC.PN ---
(1) Blister of lower extremity without infection Status: Acute Current Visit: Yes Code(s): S80.829A - Blister (nonthermal), unspecified lower leg, initial encounter (2) Diabetes Status: Acute Current Visit: Yes Code(s): E11.9 - Type 2 diabetes mellitus without complications (3) Neuropathy Status: Acute Current Visit: Yes Code(s): G62.9 - Polyneuropathy, unspecified Type of Wound Date of Service: 05/14/17 Chief Complaint: Blister behind right knee and a small traumatic abrasion to the right lewis. Patient had surgery [address] Ho on the right lower leg. Tolerated well but from the original surgical wraps developed a blister behind the right knee intiginous area. Also putting on stockings gouged his anterior lewis and either that or hit a drawer. Both areas are superficial. The blister has deflated and is now just skin I removed that and now has an open area on the right posterior knee. And another open ulcer superficial to the right lewis. History of Wound: This 66-year-old diabetic male presents to the wound center today for follow up of bilateral lower extremity small clusters of tiny ulcers that have recently opened back up. Over the last week the patient and his state they have been trying to follow the dressing changes as well as compression to bilateral lower extremities as much as they can. The feel there is an improvement. Patient and his both deny any purulence or malodor to the areas and the patient also denies any feelings of nausea, vomiting, fever, chills. Progress of Wound: Right posterior knee ulcer resolved and healed. Patient will be discharged from wound center - Physical Exam Vital Signs Temp Pulse Resp BP 96.8 F L 77 20 H 149/75 H 05/14/17 11:26 05/14/17 11:26 05/14/17 11:26 05/14/17 11:26 General: Oriented x3, Cooperative, Well developed HEENT: Atraumatic, PERRLA Oral: Moist Mucosa Neck: Supple, No JVD Lungs: Clear to auscultation, Normal air movement Cardiovascular: Regular rate, Regular Rhythm Abdomen: Bowel Sounds Present, Soft, Non Tender, No Hepato-splenomegaly Extremities: No clubbing, No edema Skin: Ulcer/ Wound - Area right knee ulcer Wound Measurements and Assessment WC - Nurse 1 - General Ulcer Measurement Start: 05/14/17 11:24 Freq: Status: Active Protocol: Activity Type Activity Date Activity User E-Sign Co-Sign Detail Recorded Client Recorded Date Recorded By Document 05/14/17 11:26 DV [id number] 05/14/17 11:29 DV 05/14/17 11:26 Wound Center Nurse 1 [Ulcer Assessment] #8 RIGHT POSTERIOR KNEE (POPLITEAL) -Combined with other wound No -Current Size (cm) - Length 0.3 -Current Size (cm) - Width 0.4 -Current Size (cm) - Depth 0.1 -Total Square Cm 0.12 -Photo Taken No -Epithelialization None Present -Undermining/Tunneling No -Circular Undermining No -Classification - Thickness Full Thickness without Exposed Support Structure -Exudate Amt None Present (0 %) -Wound Margin Distinct, Outline Attached -Granulation Amt None Present (0 %) -Granulation Quality N/A -Slough/Fibrin Yes -Necrosis Amt Large (67-100%) -Necrotic Tissue Type Adherent Slough -Structure Exposed None/Limited to Skin Breakdown -Texture (Michelle-wound Skin Appearance) No Abnormality Assessed -Moisture (Michelle-wound Skin Appearance Assessed ) Dry/Scaly -Color (Michelle-wound Skin Appearance) No Abnormality Assessed -Temperature (Michelle-wound Skin No Abnormality Appearance) (Pt Warm) -Ulcer Cleansing Rinsed/ Irrigated with Saline -Foul Odor after Cleansing No -Anesthetic Used 4% Lidocaine Solution YFN - Nurse 2 - General Ulcer CM Notes Start: 05/14/17 11:24 Freq: Status: Active Protocol: Activity Type Activity Date Activity User E-Sign Co-Sign Detail Recorded Client Recorded Date Recorded By Document 05/14/17 12:27 MW [id number] 05/14/17 12:29 MW 05/14/17 12:27 Wound Center Nurse 2 [Procedure/Treatment] -Time 12:28 -Correct Patient Yes -Correct Side, Site, Position Yes -Correct Procedure Yes -Procedure Performed No -Post Debridement Size (cm) - Length 0 -Post Debridement Size (cm) - Width 0 -Post Debridement Size (cm) - Depth 0 -Total Square Cm 0 -Wound/Ulcer Outcome Healed- Epithelialized -Ulcer Cleansing Not Cleansed -Foul Odor after Cleansing No -Bioengineered Tissue No -Bleeding Controlled with NA -Treatment Response Procedure Tolerated Well [See Physician Procedure note for Specifics] Pain Scale: 0-10 Numeric [Pain] -Is Patient Pain Free? Yes Musculoskeletal: No Tenderness to Palpation of Joints or Extremities Lymphatic: No Cervical, Supraclavicular, or Inguinal Adenopathy Neurological: Cranial nerves II-XII grossly intact, Neuro grossly intact Psych/Mental Status: Normal Affect, Appropriate Debridement Note Post-Debridement Measurements/Treatment WC - Nurse 2 - General Ulcer CM Notes Start: 05/14/17 11:24 Freq: Status: Active Protocol: Activity Type Activity Date Activity User E-Sign Co-Sign Detail Recorded Client Recorded Date Recorded By Document 05/14/17 12:27 MW [id number] 05/14/17 12:29 MW 05/14/17 12:27 Wound Center Nurse 2 #8 RIGHT POSTERIOR KNEE (POPLITEAL) -Time 12:28 -Correct Patient Yes -Correct Side, Site, Position Yes -Correct Procedure Yes -Procedure Performed No -Post Debridement Size (cm) - Length 0 -Post Debridement Size (cm) - Width 0 -Post Debridement Size (cm) - Depth 0 -Total Square Cm 0 -Wound/Ulcer Outcome Healed- Epithelialized -Ulcer Cleansing Not Cleansed -Foul Odor after Cleansing No -Bioengineered Tissue No -Bleeding Controlled with NA -Treatment Response Procedure Tolerated Well Pain Scale: 0-10 Numeric Is Patient Pain Free? Yes No debridement was completed today Assessment/Plan Active Problems Neuropathy (Acute) Blister of lower extremity without infection (Acute) Diabetes (Acute) Assessment: Peripheral vascular occlusive disease. Edema bilateral lower legs. Bilateral lower leg ulcer. Diabetes uncontrolled. Superficial ulcers right posterior knee and right lewis resolved Plan: Discharge from the wound center follow-up as needed
--- NOTE | 2017-05-21 16:00 | WC ---
Call from Mrs. Valderrama today expressing concern of new ulcers that opened-up. Patient was seen 05/14/18 and discharged from service at that time. Several unsuccessful attempts have been made to return her call. She is treating these new wounds using collagen hydrogel and covering with adaptic and dry dressings. Compression is mainly tubigrip.
[2017-05-28 13:15] VITALS: BP 123/75; PULSE 70; RESP 16; TEMP 35.7; BMI 47.9
--- NOTE | 2017-05-28 18:26 | PCM.WC.HP ---
(1) Venous ulcer of left lower extremity without varicose veins Status: Chronic Current Visit: Yes Code(s): I87.2 - Venous insufficiency (chronic) (peripheral); L97.929 - Non-pressure chronic ulcer of unspecified part of left lower leg with unspecified severity (2) Venous ulcer of right lower extremity without varicose veins Status: Chronic Current Visit: Yes Code(s): I87.2 - Venous insufficiency (chronic) (peripheral); L97.919 - Non-pressure chronic ulcer of unspecified part of right lower leg with unspecified severity (3) Type 2 diabetes mellitus with peripheral neuropathy Status: Chronic Current Visit: Yes Code(s): E11.42 - Type 2 diabetes mellitus with diabetic polyneuropathy (4) HTN (hypertension) Status: Chronic Current Visit: Yes Qualifiers: Hypertension type: essential hypertension Qualified Code(s): I10 - Essential (primary) hypertension Code(s): I10 - Essential (primary) hypertension (5) Neuropathy Status: Chronic Current Visit: Yes Code(s): G62.9 - Polyneuropathy, unspecified (6) Obesity Status: Acute Current Visit: Yes Qualifiers: Obesity type: due to excess calories Serious obesity comorbidity presence: with serious comorbidity Body mass index: unspecified BMI Code(s): E66.9 - Obesity, unspecified (7) Non-pressure ulcer of left lower extremity with fat layer exposed Status: Chronic Current Visit: Yes Code(s): L97.922 - Non-pressure chronic ulcer of unspecified part of left lower leg with fat layer exposed (8) Peripheral vascular obstructive disease Status: Chronic Current Visit: Yes Code(s): I73.9 - Peripheral vascular disease, unspecified (9) Non-pressure ulcer of right lower extremity with fat layer exposed Status: Chronic Current Visit: Yes Code(s): L97.912 - Non-pressure chronic ulcer of unspecified part of right lower leg with fat layer exposed (10) Edema of both legs Status: Chronic Current Visit: Yes Code(s): R60.0 - Localized edema (11) Diabetes Status: Chronic Current Visit: Yes Qualifiers: Diabetes mellitus type: type 2 Diabetes mellitus assistant terminal manager insulin use: unspecified senior living insulin use status Diabetes mellitus complication status: with neurologic complications Diabetes mellitus complication detail: with unspecified neuropathy Qualified Code(s): E11.40 - Type 2 diabetes mellitus with diabetic neuropathy, unspecified Code(s): E11.9 - Type 2 diabetes mellitus without complications History of Present Illness Date of Service: 05/28/17 Chief Complaint: Blister behind right knee and a small traumatic abrasion to the right lewis. Patient had surgery [address] Ho on the right lower leg. Tolerated well but from the original surgical wraps developed a blister behind the right knee intiginous area. Also putting on stockings gouged his anterior lewis and either that or hit a drawer. Both areas are superficial. The blister has deflated and is now just skin I removed that and now has an open area on the right posterior knee. And another open ulcer superficial to the right lewis. History of Wound: This 66-year-old diabetic male presents to the wound center today for recurrence of bilateral lower extremity small clusters of tiny ulcers that have opened up in the past week. He is accompanied by his and they report that he has been compliant with tubigrip compression but has had itching and developed these open areas after itching and developing blisters. His has been applying collagen hydrogel to the wounds and has not noticed any improvement. She notes a lot of drainage from the wounds on his right leg especially. They have seen vascular surgery and he underwent a procedure on his right leg but they will not do anything to his left leg until there are no wounds. Patient and his both deny any purulence or malodor to the areas and the patient also denies any feelings of nausea, vomiting, fever, chills. Past Medical History Past Medical History: Chronic Problems Venous ulcer of left lower extremity without varicose veins (Chronic) Venous ulcer of right lower extremity without varicose veins (Chronic) Cerebrovascular accident (CVA) of left pontine structure (Chronic) Non compliance w medication regimen (Chronic) Type 2 diabetes mellitus with peripheral neuropathy (Chronic) HTN (hypertension) (Chronic) TIA (transient ischemic attack) (Chronic) Neuropathy (Chronic) NAHED (obstructive sleep apnea) (Chronic) Non-pressure ulcer of left lower extremity with fat layer exposed (Chronic) Peripheral vascular obstructive disease (Chronic) Non-pressure ulcer of right lower extremity with fat layer exposed (Chronic) Edema of both legs (Chronic) Diabetes (Chronic) Allergies/Adverse Reactions: Allergies lisinopril Allergy (Verified 03/22/17 20:58) COUGH simvastatin Allergy (Verified 03/22/17 20:58) Unknown Home Medications: Ambulatory Orders Medication Instructions Recorded Aspirin [Aspirin, Baby] 81 mg PO DAILY@0800 10/07/16 Diclofenac [Voltaren] 75 mg PO BID PRN PRN 10/07/16 Levothyroxine [Synthroid] 50 mcg PO DAILY 10/07/16 Losartan/Hydrochlorothiazide 1 each PO DAILY 10/07/16 [Losartan-Hctz 100-25 mg Tab] Insulin Aspart [Novolog Flexpen] 22 units SC BREAKFAST 11/05/16 Insulin NPH Human [Humulin N Pen] 24 units SC DINNER 11/05/16 Insulin Regular, Human [Novolin R] 18 unit SC QHS 11/05/16 Insulin Regular, Human [Novolin R] 26 unit SC LUNCH 03/22/17 Cephalexin 500 mg PO BID 03/25/17 Furosemide [Lasix] 20 mg PO DAILY 03/25/17 Ibuprofen 600 mg PO TID 04/08/17 - Family History Maternal No pertinent history Paternal No pertinent history Lives: Spouse/ Significant Other Smoking Status: Never smoker Tobacco Use: Non-smoker Alcohol: None Drugs: None Review of Systems Constitutional: Denies: Chills, Fever, Weight Change Eyes: Denies: Pain, Vision Change HEENT: Denies: Difficulty Hearing, Difficulty Swallowing, Sinus Congestion Cardiovascular: Denies: Chest Pain, Palpitations Respiratory: Denies: Cough, Shortness of Breath Gastrointestinal: Denies: Diarrhea, Nausea, Vomiting Genitourinary: Denies: Dysuria, Hematuria Musculoskeletal: Reports: Back Pain, Leg Pain Skin: Reports: Pruritis, Wounds Neurological: Reports: Numbness Hematologic/ Lymphatic: Denies: Easy Bruising, Easy Bleeding - Physical Exam Vital Signs Temp Pulse Resp BP 96.2 F L 70 16 123/75 H 05/28/17 13:15 05/28/17 13:15 05/28/17 13:15 05/28/17 13:15 General: Alert, Oriented x3, Cooperative, No apparent distress HEENT: Atraumatic, Normocephalic Oral: Moist Mucosa Lungs: Clear to auscultation Cardiovascular: Regular rate, Regular Rhythm Abdomen: Soft, Non Tender, Obese Extremities: Edema Skin: Ulcer/ Wound Wound Measurements and Assessment WC - Nurse 1 - General Ulcer Measurement Start: 05/14/17 11:24 Freq: Status: Active Protocol: Activity Type Activity Date Activity User E-Sign Co-Sign Detail Recorded Client Recorded Date Recorded By Document 05/28/17 13:15 [facility] [id number] 05/28/17 13:35 [facility] 05/28/17 13:15 Wound Center Nurse 1 [Ulcer Assessment] #11- LT MEDIAL CALF -Combined with other wound No -Current Size (cm) - Length 0.4 -Current Size (cm) - Width 0.4 -Current Size (cm) - Depth 0.1 -Total Square Cm 0.16 -Date of Last Picture (Recall this 05/28/17 field) -Photo Taken Yes -Epithelialization None Present -Tunneling No -Undermining/Tunneling No -Exudate Amt Small (1-33%) -Exudate Type Serous -Wound Margin Distinct, Outline Attached -Granulation Amt Large (67-100%) -Granulation Quality Red -Slough/Fibrin No -Necrosis Amt None Present (0 %) -Structure Exposed None/Limited to Skin Breakdown -Texture (Michelle-wound Skin Appearance) Scarring -Color (Michelle-wound Skin Appearance) Erythema -Temperature (Michelle-wound Skin No Abnormality Appearance) (Pt Warm) -Tenderness on Palpation (Michelle-wound No Skin Appearance) -Ulcer Cleansing Rinsed/ Irrigated with Saline -Foul Odor after Cleansing No -Anesthetic Used 4% Lidocaine Solution #10- RT LEWIS CLUSTER -Combined with other wound No -Current Size (cm) - Length 7.3 -Current Size (cm) - Width 4.6 -Current Size (cm) - Depth 0.1 -Total Square Cm 33.58 -Date of Last Picture (Recall this 05/28/17 field) -Photo Taken Yes -Epithelialization None Present -Tunneling No -Undermining/Tunneling No -Exudate Amt Small (1-33%) -Exudate Type Sanguineous -Wound Margin Distinct, Outline Attached -Granulation Amt Large (67-100%) -Granulation Quality Red -Slough/Fibrin Yes -Necrosis Amt Small (1-33%) -Necrotic Tissue Type Adherent Slough -Structure Exposed None/Limited to Skin Breakdown -Texture (Michelle-wound Skin Appearance) Scarring -Moisture (Michelle-wound Skin Appearance Dry/Scaly ) -Color (Michelle-wound Skin Appearance) Erythema -Temperature (Michelle-wound Skin No Abnormality Appearance) (Pt Warm) -Tenderness on Palpation (Michelle-wound No Skin Appearance) -Ulcer Cleansing Rinsed/ Irrigated with Saline -Foul Odor after Cleansing No -Anesthetic Used 4% Lidocaine Solution [Edema Assessment] -Lower Limb Edema Present Yes -Right Calf (cm) 45.6 -Right Ankle (cm) 25.6 -Left Calf (cm) 45.7 -Left Ankle (cm) 24.8 YFN - Nurse 2 - General Ulcer CM Notes Start: 05/14/17 11:24 Freq: Status: Active Protocol: Activity Type Activity Date Activity User E-Sign Co-Sign Detail Recorded Client Recorded Date Recorded By Document 05/28/17 13:43 TM [id number] 05/28/17 13:52 TM 05/28/17 13:43 Wound Center Nurse 2 [Procedure/Treatment] #11- LT MEDIAL CALF -Time 13:50 -Correct Patient Yes -Correct Side, Site, Position Yes -Correct Procedure Yes -Procedure Performed Yes -Type of Procedure Debridement -Clinical Debridement Subcutaneous -Post Debridement Size (cm) - Length 0.4 -Post Debridement Size (cm) - Width 0.5 -Post Debridement Size (cm) - Depth 0.1 -Total Square Cm 0.20 -Wound/Ulcer Outcome Not Healed -Ulcer Cleansing Rinsed/ Irrigated with Saline -Foul Odor after Cleansing No -Bioengineered Tissue No -Topical Lidocaine (%) 4 -Bleeding Controlled with Pressure -Treatment Response Procedure Tolerated Well #10- RT LEWIS CLUSTER -Time 13:50 -Correct Patient Yes -Correct Side, Site, Position Yes -Correct Procedure Yes -Procedure Performed Yes -Type of Procedure Debridement -Clinical Debridement Subcutaneous -Post Debridement Size (cm) - Length 6.3 -Post Debridement Size (cm) - Width 5.0 -Post Debridement Size (cm) - Depth 0.1 -Total Square Cm 31.50 -Wound/Ulcer Outcome Not Healed -Ulcer Cleansing Rinsed/ Irrigated with Saline -Foul Odor after Cleansing No -Bioengineered Tissue No -Topical Lidocaine (%) 4 -Bleeding Controlled with Pressure -Treatment Response Procedure Tolerated Well [See Physician Procedure note for Specifics] Pain Scale: 0-10 Numeric [Pain] -Is Patient Pain Free? Yes Psych/Mental Status: Normal Affect, Appropriate Debridement Note Post-Debridement Measurements/Treatment YFN - Nurse 2 - General Ulcer CM Notes Start: 05/14/17 11:24 Freq: Status: Active Protocol: Activity Type Activity Date Activity User E-Sign Co-Sign Detail Recorded Client Recorded Date Recorded By Document 05/14/17 12:27 MW [id number] 05/14/17 12:29 MW Document 05/28/17 13:43 TM [id number] 05/28/17 13:52 TM 05/14/17 05/28/17 12:27 13:43 Wound Center Nurse 2 #11- LT MEDIAL CALF -Time 13:50 -Correct Patient Yes -Correct Side, Site, Position Yes -Correct Procedure Yes -Procedure Performed Yes -Type of Procedure Debridement -Clinical Debridement Subcutaneous -Post Debridement Size (cm) - Length 0.4 -Post Debridement Size (cm) - Width 0.5 -Post Debridement Size (cm) - Depth 0.1 -Total Square Cm 0.20 -Wound/Ulcer Outcome Not Healed -Ulcer Cleansing Rinsed/ Irrigated with Saline -Foul Odor after Cleansing No -Bioengineered Tissue No -Topical Lidocaine (%) 4 -Bleeding Controlled with Pressure -Treatment Response Procedure Tolerated Well #10- RT LEWIS CLUSTER -Time 13:50 -Correct Patient Yes -Correct Side, Site, Position Yes -Correct Procedure Yes -Procedure Performed Yes -Type of Procedure Debridement -Clinical Debridement Subcutaneous -Post Debridement Size (cm) - Length 6.3 -Post Debridement Size (cm) - Width 5.0 -Post Debridement Size (cm) - Depth 0.1 -Total Square Cm 31.50 -Wound/Ulcer Outcome Not Healed -Ulcer Cleansing Rinsed/ Irrigated with Saline -Foul Odor after Cleansing No -Bioengineered Tissue No -Topical Lidocaine (%) 4 -Bleeding Controlled with Pressure -Treatment Response Procedure Tolerated Well #8 RIGHT POSTERIOR KNEE (POPLITEAL) -Time 12:28 -Correct Patient Yes -Correct Side, Site, Position Yes -Correct Procedure Yes -Procedure Performed No -Post Debridement Size (cm) - Length 0 -Post Debridement Size (cm) - Width 0 -Post Debridement Size (cm) - Depth 0 -Total Square Cm 0 -Wound/Ulcer Outcome Healed- Epithelialized -Ulcer Cleansing Not Cleansed -Foul Odor after Cleansing No -Bioengineered Tissue No -Bleeding Controlled with NA -Treatment Response Procedure Tolerated Well Pain Scale: 0-10 Numeric Is Patient Pain Free? Yes Yes Wound debrided: left medial calf Laterality: Left Type of Debridement: Excisional debridement Anesthesia Used: 4% Lidocaine Solution Depth: Down to and including healthy tissue, in the subcutaneous layer Percentage of wound debrided: 100 Instrument Used: 5mm curette Tissue Removed: yellow slough and devitalized tissue Severity: Fat Layer Exposed Amount of bleeding with debridement: Mild Bleeding Controlled with: Compression and gauze Patient tolerated procedure well - Additional Wound Wound debrided: right lewis cluster Laterality: Right Type of Debridement: Excisional debridement Anesthesia Used: 4% Lidocaine Solution Depth: Down to and including healthy tissue, in the subcutaneous layer Percentage of wound debrided: 100 Instrument Used: 5mm curette Tissue Removed: yellow slough and devitalized tissue Severity: Fat Layer Exposed Amount of bleeding with debridement: Mild Bleeding Controlled with: Compression and gauze Patient tolerated procedure: Patient tolerated procedure well Assessment/Plan Active Problems Venous ulcer of left lower extremity without varicose veins (Chronic) Venous ulcer of right lower extremity without varicose veins (Chronic) Type 2 diabetes mellitus with peripheral neuropathy (Chronic) HTN (hypertension) (Chronic) Neuropathy (Chronic) Blister of lower extremity without infection (Acute) Obesity (Acute) Non-pressure ulcer of left lower extremity with fat layer exposed (Chronic) Peripheral vascular obstructive disease (Chronic) Non-pressure ulcer of right lower extremity with fat layer exposed (Chronic) Edema of both legs (Chronic) Diabetes (Chronic) Assessment: Peripheral vascular occlusive disease. Edema bilateral lower legs. Bilateral venous lower leg ulcers. Diabetes uncontrolled Plan: Chava's wounds were evaluated and debrided. The wounds are very superficial. The right lewis cluster is erythematous and painful. Will have him start cephalexin and will treat him with Aquacel to the right lewis cluster and left medial calf. Will continue tubigrips and also feel he would benefit from compression with Circaids as it seems that the tubigrips are not effective and he is unable to tolerate or place compression stockings due to back pain and neuropathy, order for Circaids has been sent to [facility], and placement of Circaids were demonstrated to the patient and his . Will have him f/u in 1 week.
--- NOTE | 2017-05-28 18:44 | HP.PCM_ITS ---
(1) Venous ulcer of left lower extremity without varicose veins Status: Chronic Current Visit: Yes Code(s): I87.2 - Venous insufficiency ( chronic) (peripheral); L97.929 - Non-pressure chronic ulcer of unspecified part of left lower leg with unspecified severity (2) Venous ulcer of right lower extremity without varicose veins Status: Chronic Current Visit: Yes Code(s): I87.2 - Venous insufficiency ( chronic) (peripheral); L97.919 - Non-pressure chronic ulcer of unspecified part of right lower leg with unspecified severity (3) Type 2 diabetes mellitus with peripheral neuropathy Status: Chronic Current Visit: Yes Code(s): E11.42 - Type 2 diabetes mellitus with diabetic polyneuropathy (4) HTN (hypertension) Status: Chronic Current Visit: Yes Qualifiers: Hypertension type: essential hypertension Qualified Code(s): I10 - Essential (primary) hypertension Code(s): I10 - Essential (primary) hypertension (5) Neuropathy Status: Chronic Current Visit: Yes Code(s): G62.9 - Polyneuropathy, unspecified (6) Obesity Status: Acute Current Visit: Yes Qualifiers: Obesity type: due to excess calories Serious obesity comorbidity presence: with serious comorbidity Body mass index: unspecified BMI Code(s): E66.9 - Obesity, unspecified (7) Non-pressure ulcer of left lower extremity with fat layer exposed Status: Chronic Current Visit: Yes Code(s): L97.922 - Non-pressure chronic ulcer of unspecified part of left lower leg with fat layer exposed (8) Peripheral vascular obstructive disease Status: Chronic Current Visit: Yes Code(s): I73.9 - Peripheral vascular disease, unspecified (9) Non-pressure ulcer of right lower extremity with fat layer exposed Status: Chronic Current Visit: Yes Code(s): L97.912 - Non-pressure chronic ulcer of unspecified part of right lower leg with fat layer exposed (10) Edema of both legs Status: Chronic Current Visit: Yes Code(s): R60.0 - Localized edema (11) Diabetes Status: Chronic Current Visit: Yes Qualifiers: Diabetes mellitus type: type 2 Diabetes mellitus terminal operator insulin use: unspecified terminal operator insulin use status Diabetes mellitus complication status : with neurologic complications Diabetes mellitus complication detail: with unspecified neuropathy Qualified Code(s): E11.40 - Type 2 diabetes mellitus with diabetic neuropathy, unspecified Code(s): E11.9 - Type 2 diabetes mellitus without complications History of Present Illness Date of Service: 05/28/17 Chief Complaint: Blister behind right knee and a small traumatic abrasion to the right lewis. Patient had surgery [address] Ho on the right lower leg. Tolerated well but from the original surgical wraps developed a blister behind the right knee intiginous area. Also putting on stockings gouged his anterior lewis and either that or hit a drawer. Both areas are superficial. The blister has deflated and is now just skin I removed that and now has an open area on the right posterior knee. And another open ulcer superficial to the right lewis. History of Wound: This 66-year-old diabetic male presents to the wound center today for recurrence of bilateral lower extremity small clusters of tiny ulcers that have opened up in the past week. He is accompanied by his and they report that he has been compliant with tubigrip compression but has had itching and developed these open areas after itching and developing blisters. His has been applying collagen hydrogel to the wounds and has not noticed any improvement. She notes a lot of drainage from the wounds on his right leg especially. They have seen vascular surgery and he underwent a procedure on his right leg but they will not do anything to his left leg until there are no wounds. Patient and his both deny any purulence or malodor to the areas and the patient also denies any feelings of nausea, vomiting, fever, chills. Past Medical History Past Medical History: Chronic Problems Venous ulcer of left lower extremity without varicose veins (Chronic) Venous ulcer of right lower extremity without varicose veins (Chronic) Cerebrovascular accident (CVA) of left pontine structure (Chronic) Non compliance w medication regimen (Chronic) Type 2 diabetes mellitus with peripheral neuropathy (Chronic) HTN (hypertension) (Chronic) TIA (transient ischemic attack) (Chronic) Neuropathy (Chronic) NAHED (obstructive sleep apnea) (Chronic) Non-pressure ulcer of left lower extremity with fat layer exposed (Chronic) Peripheral vascular obstructive disease (Chronic) Non-pressure ulcer of right lower extremity with fat layer exposed (Chronic) Edema of both legs (Chronic) Diabetes (Chronic) Allergies/Adverse Reactions: Allergies lisinopril Allergy (Verified 03/22/17 20:58) COUGH simvastatin Allergy (Verified 03/22/17 20:58) Unknown Home Medications: Ambulatory Orders Medication Instructions Recorded Aspirin [Aspirin, Baby] 81 mg PO DAILY@0800 10/07/16 Diclofenac [Voltaren] 75 mg PO BID PRN PRN 10/07/16 Levothyroxine [Synthroid] 50 mcg PO DAILY 10/07/16 Losartan/Hydrochlorothiazide 1 each PO DAILY 10/07/16 [Losartan-Hctz 100-25 mg Tab] Insulin Aspart [Novolog Flexpen] 22 units SC BREAKFAST 11/05/16 Insulin NPH Human [Humulin N Pen] 24 units SC DINNER 11/05/16 Insulin Regular, Human [Novolin R] 18 unit SC QHS 11/05/16 Insulin Regular, Human [Novolin R] 26 unit SC LUNCH 03/22/17 Cephalexin 500 mg PO BID 03/25/17 Furosemide [Lasix] 20 mg PO DAILY 03/25/17 Ibuprofen 600 mg PO TID 04/08/17 - Family History Maternal No pertinent history Paternal No pertinent history Lives: Spouse/ Significant Other Smoking Status: Never smoker Tobacco Use: Non-smoker Alcohol: None Drugs: None Review of Systems Constitutional: Denies: Chills, Fever, Weight Change Eyes: Denies: Pain, Vision Change HEENT: Denies: Difficulty Hearing, Difficulty Swallowing, Sinus Congestion Cardiovascular: Denies: Chest Pain, Palpitations Respiratory: Denies: Cough, Shortness of Breath Gastrointestinal: Denies: Diarrhea, Nausea, Vomiting Genitourinary: Denies: Dysuria, Hematuria Musculoskeletal: Reports: Back Pain, Leg Pain Skin: Reports: Pruritis, Wounds Neurological: Reports: Numbness Hematologic/ Lymphatic: Denies: Easy Bruising, Easy Bleeding - Physical Exam Vital Signs Temp Pulse Resp BP 96.2 F L 70 16 123/75 H 05/28/17 13:15 05/28/17 13:15 05/28/17 13:15 05/28/17 13:15 General: Alert, Oriented x3, Cooperative, No apparent distress HEENT: Atraumatic, Normocephalic Oral: Moist Mucosa Lungs: Clear to auscultation Cardiovascular: Regular rate, Regular Rhythm Abdomen: Soft, Non Tender, Obese Extremities: Edema Skin: Ulcer/ Wound Wound Measurements and Assessment WC - Nurse 1 - General Ulcer Measurement Start: 05/14/17 11:24 Freq: Status: Active Protocol: Activity Type Activity Date Activity User E-Sign Co-Sign Detail Recorded Client Recorded Date Recorded By Document 05/28/17 13:15 [facility] [id number] 05/28/17 13:35 [facility] 05/28/17 13:15 Wound Center Nurse 1 [Ulcer Assessment] #11- LT MEDIAL CALF -Combined with other wound No -Current Size (cm) - Length 0.4 -Current Size (cm) - Width 0.4 -Current Size (cm) - Depth 0.1 -Total Square Cm 0.16 -Date of Last Picture (Recall this 05/28/17 field) -Photo Taken Yes -Epithelialization None Present -Tunneling No -Undermining/Tunneling No -Exudate Amt Small (1-33%) -Exudate Type Serous -Wound Margin Distinct, Outline Attached -Granulation Amt Large (67-100%) -Granulation Quality Red -Slough/Fibrin No -Necrosis Amt None Present (0 %) -Structure Exposed None/Limited to Skin Breakdown -Texture (Michelle-wound Skin Appearance) Scarring -Color (Michelle-wound Skin Appearance) Erythema -Temperature (Michelle-wound Skin No Abnormality Appearance) (Pt Warm) -Tenderness on Palpation (Michelle-wound No Skin Appearance) -Ulcer Cleansing Rinsed/ Irrigated with Saline -Foul Odor after Cleansing No -Anesthetic Used 4% Lidocaine Solution #10- RT LEWIS CLUSTER -Combined with other wound No -Current Size (cm) - Length 7.3 -Current Size (cm) - Width 4.6 -Current Size (cm) - Depth 0.1 -Total Square Cm 33.58 -Date of Last Picture (Recall this 05/28/17 field) -Photo Taken Yes -Epithelialization None Present -Tunneling No -Undermining/Tunneling No -Exudate Amt Small (1-33%) -Exudate Type Sanguineous -Wound Margin Distinct, Outline Attached -Granulation Amt Large (67-100%) -Granulation Quality Red -Slough/Fibrin Yes -Necrosis Amt Small (1-33%) -Necrotic Tissue Type Adherent Slough -Structure Exposed None/Limited to Skin Breakdown -Texture (Michelle-wound Skin Appearance) Scarring -Moisture (Michelle-wound Skin Appearance Dry/Scaly ) -Color (Michelle-wound Skin Appearance) Erythema -Temperature (Michelle-wound Skin No Abnormality Appearance) (Pt Warm) -Tenderness on Palpation (Michelle-wound No Skin Appearance) -Ulcer Cleansing Rinsed/ Irrigated with Saline -Foul Odor after Cleansing No -Anesthetic Used 4% Lidocaine Solution [Edema Assessment] -Lower Limb Edema Present Yes -Right Calf (cm) 45.6 -Right Ankle (cm) 25.6 -Left Calf (cm) 45.7 -Left Ankle (cm) 24.8 YFN - Nurse 2 - General Ulcer CM Notes Start: 05/14/17 11:24 Freq: Status: Active Protocol: Activity Type Activity Date Activity User E-Sign Co-Sign Detail Recorded Client Recorded Date Recorded By Document 05/28/17 13:43 TM [id number] 05/28/17 13:52 TM 05/28/17 13:43 Wound Center Nurse 2 [Procedure/Treatment] #11- LT MEDIAL CALF -Time 13:50 -Correct Patient Yes -Correct Side, Site, Position Yes -Correct Procedure Yes -Procedure Performed Yes -Type of Procedure Debridement -Clinical Debridement Subcutaneous -Post Debridement Size (cm) - Length 0.4 -Post Debridement Size (cm) - Width 0.5 -Post Debridement Size (cm) - Depth 0.1 -Total Square Cm 0.20 -Wound/Ulcer Outcome Not Healed -Ulcer Cleansing Rinsed/ Irrigated with Saline -Foul Odor after Cleansing No -Bioengineered Tissue No -Topical Lidocaine (%) 4 -Bleeding Controlled with Pressure -Treatment Response Procedure Tolerated Well #10- RT LEWIS CLUSTER -Time 13:50 -Correct Patient Yes -Correct Side, Site, Position Yes -Correct Procedure Yes -Procedure Performed Yes -Type of Procedure Debridement -Clinical Debridement Subcutaneous -Post Debridement Size (cm) - Length 6.3 -Post Debridement Size (cm) - Width 5.0 -Post Debridement Size (cm) - Depth 0.1 -Total Square Cm 31.50 -Wound/Ulcer Outcome Not Healed -Ulcer Cleansing Rinsed/ Irrigated with Saline -Foul Odor after Cleansing No -Bioengineered Tissue No -Topical Lidocaine (%) 4 -Bleeding Controlled with Pressure -Treatment Response Procedure Tolerated Well [See Physician Procedure note for Specifics] Pain Scale: 0-10 Numeric [Pain] -Is Patient Pain Free? Yes Psych/Mental Status: Normal Affect, Appropriate Debridement Note Post-Debridement Measurements/Treatment YFN - Nurse 2 - General Ulcer CM Notes Start: 05/14/17 11:24 Freq: Status: Active Protocol: Activity Type Activity Date Activity User E-Sign Co-Sign Detail Recorded Client Recorded Date Recorded By Document 05/14/17 12:27 MW [id number] 05/14/17 12:29 MW Document 05/28/17 13:43 TM [id number] 05/28/17 13:52 TM 05/14/17 05/28/17 12:27 13:43 Wound Center Nurse 2 #11- LT MEDIAL CALF -Time 13:50 -Correct Patient Yes -Correct Side, Site, Position Yes -Correct Procedure Yes -Procedure Performed Yes -Type of Procedure Debridement -Clinical Debridement Subcutaneous -Post Debridement Size (cm) - Length 0.4 -Post Debridement Size (cm) - Width 0.5 -Post Debridement Size (cm) - Depth 0.1 -Total Square Cm 0.20 -Wound/Ulcer Outcome Not Healed -Ulcer Cleansing Rinsed/ Irrigated with Saline -Foul Odor after Cleansing No -Bioengineered Tissue No -Topical Lidocaine (%) 4 -Bleeding Controlled with Pressure -Treatment Response Procedure Tolerated Well #10- RT LEWIS CLUSTER -Time 13:50 -Correct Patient Yes -Correct Side, Site, Position Yes -Correct Procedure Yes -Procedure Performed Yes -Type of Procedure Debridement -Clinical Debridement Subcutaneous -Post Debridement Size (cm) - Length 6.3 -Post Debridement Size (cm) - Width 5.0 -Post Debridement Size (cm) - Depth 0.1 -Total Square Cm 31.50 -Wound/Ulcer Outcome Not Healed -Ulcer Cleansing Rinsed/ Irrigated with Saline -Foul Odor after Cleansing No -Bioengineered Tissue No -Topical Lidocaine (%) 4 -Bleeding Controlled with Pressure -Treatment Response Procedure Tolerated Well #8 RIGHT POSTERIOR KNEE (POPLITEAL) -Time 12:28 -Correct Patient Yes -Correct Side, Site, Position Yes -Correct Procedure Yes -Procedure Performed No -Post Debridement Size (cm) - Length 0 -Post Debridement Size (cm) - Width 0 -Post Debridement Size (cm) - Depth 0 -Total Square Cm 0 -Wound/Ulcer Outcome Healed- Epithelialized -Ulcer Cleansing Not Cleansed -Foul Odor after Cleansing No -Bioengineered Tissue No -Bleeding Controlled with NA -Treatment Response Procedure Tolerated Well Pain Scale: 0-10 Numeric Is Patient Pain Free? Yes Yes Wound debrided: left medial calf Laterality: Left Type of Debridement: Excisional debridement Anesthesia Used: 4% Lidocaine Solution Depth: Down to and including healthy tissue, in the subcutaneous layer Percentage of wound debrided: 100 Instrument Used: 5mm curette Tissue Removed: yellow slough and devitalized tissue Severity: Fat Layer Exposed Amount of bleeding with debridement: Mild Bleeding Controlled with: Compression and gauze Patient tolerated procedure well - Additional Wound Wound debrided: right lewis cluster Laterality: Right Type of Debridement: Excisional debridement Anesthesia Used: 4% Lidocaine Solution Depth: Down to and including healthy tissue, in the subcutaneous layer Percentage of wound debrided: 100 Instrument Used: 5mm curette Tissue Removed: yellow slough and devitalized tissue Severity: Fat Layer Exposed Amount of bleeding with debridement: Mild Bleeding Controlled with: Compression and gauze Patient tolerated procedure: Patient tolerated procedure well Assessment/Plan Active Problems Venous ulcer of left lower extremity without varicose veins (Chronic) Venous ulcer of right lower extremity without varicose veins (Chronic) Type 2 diabetes mellitus with peripheral neuropathy (Chronic) HTN (hypertension) (Chronic) Neuropathy (Chronic) Blister of lower extremity without infection (Acute) Obesity (Acute) Non-pressure ulcer of left lower extremity with fat layer exposed (Chronic) Peripheral vascular obstructive disease (Chronic) Non-pressure ulcer of right lower extremity with fat layer exposed (Chronic) Edema of both legs (Chronic) Diabetes (Chronic) Assessment: Peripheral vascular occlusive disease. Edema bilateral lower legs. Bilateral venous lower leg ulcers. Diabetes uncontrolled Plan: Chava's wounds were evaluated and debrided. The wounds are very superficial. The right lewis cluster is erythematous and painful. Will have him start cephalexin and will treat him with Aquacel to the right lewis cluster and left medial calf. Will continue tubigrips and also feel he would benefit from compression with Circaids as it seems that the tubigrips are not effective and he is unable to tolerate or place compression stockings due to back pain and neuropathy, order for Circaids has been sent to [facility], and placement of Circaids were demonstrated to the patient and his . Will have him f/u in 1 week.
[2017-06-08 14:06] VITALS: BP 151/76; PULSE 76; RESP 22; TEMP 35; BMI 47.9
--- NOTE | 2017-06-08 15:37 | PCM.WC.HP ---
(1) Non-pressure chronic ulcer of other part of right lower leg with fat layer exposed Status: Acute Current Visit: Yes Code(s): L97.812 - Non-pressure chronic ulcer of other part of right lower leg with fat layer exposed (2) Type 2 diabetes mellitus with peripheral neuropathy Status: Chronic Current Visit: Yes Code(s): E11.42 - Type 2 diabetes mellitus with diabetic polyneuropathy (3) Venous insufficiency (chronic) (peripheral) Status: Chronic Current Visit: Yes Code(s): I87.2 - Venous insufficiency (chronic) (peripheral) (4) Lower extremity edema Status: Chronic Current Visit: Yes Code(s): R60.0 - Localized edema History of Present Illness Date of Service: 06/08/17 Chief Complaint: R lewis ulcer History of Wound: This 66-year-old diabetic man presents to the wound center today for recurrence of R lewis ulcer. He is accompanied by his and they report that he has been compliant with tubigrip compression but has had itching and developed these open areas after scratching in the middle of the night. His has been applying aquacel ag to the wound, notes that he was improved, but re-developed ulcers again due to scratching his lewis in the middle of hte night. She notes a moderate amount of drainage from the wounds on his right leg especially. They have seen vascular surgery and he underwent a procedure on his right leg but they will not do anything to his left leg until there are no wounds. Patient and his both deny any purulence or malodor to the areas and the patient also denies any feelings of nausea, vomiting, fever, chills. Past Medical History Past Medical History: Chronic Problems Venous ulcer of left lower extremity without varicose veins (Chronic) Venous ulcer of right lower extremity without varicose veins (Chronic) Venous insufficiency (chronic) (peripheral) (Chronic) Cerebrovascular accident (CVA) of left pontine structure (Chronic) Non compliance w medication regimen (Chronic) Type 2 diabetes mellitus with peripheral neuropathy (Chronic) HTN (hypertension) (Chronic) TIA (transient ischemic attack) (Chronic) Neuropathy (Chronic) NAHED (obstructive sleep apnea) (Chronic) Lower extremity edema (Chronic) Non-pressure ulcer of left lower extremity with fat layer exposed (Chronic) Peripheral vascular obstructive disease (Chronic) Non-pressure ulcer of right lower extremity with fat layer exposed (Chronic) Edema of both legs (Chronic) Diabetes (Chronic) Surgical History: - - EVLA RLE by Dr. oH Allergies/Adverse Reactions: Allergies lisinopril Allergy (Verified 03/22/17 20:58) COUGH simvastatin Allergy (Verified 03/22/17 20:58) Unknown Home Medications: Ambulatory Orders Medication Instructions Recorded Aspirin [Aspirin, Baby] 81 mg PO DAILY@0800 10/07/16 Diclofenac [Voltaren] 75 mg PO BID PRN PRN 10/07/16 Levothyroxine [Synthroid] 50 mcg PO DAILY 10/07/16 Losartan/Hydrochlorothiazide 1 each PO DAILY 10/07/16 [Losartan-Hctz 100-25 mg Tab] Insulin Aspart [Novolog Flexpen] 22 units SC BREAKFAST 11/05/16 Insulin NPH Human [Humulin N Pen] 24 units SC DINNER 11/05/16 Insulin Regular, Human [Novolin R] 18 unit SC QHS 11/05/16 Insulin Regular, Human [Novolin R] 26 unit SC LUNCH 03/22/17 Cephalexin 500 mg PO BID 03/25/17 Furosemide [Lasix] 20 mg PO DAILY 03/25/17 Ibuprofen 600 mg PO TID 04/08/17 - Family History Maternal No pertinent history Paternal No pertinent history Lives: Spouse/ Significant Other Smoking Status: Never smoker Tobacco Use: Non-smoker Alcohol: None Drugs: None Review of Systems Constitutional: Denies: Chills, Fever, Weight Change Eyes: Denies: Pain, Vision Change HEENT: Denies: Difficulty Hearing, Difficulty Swallowing, Sinus Congestion Cardiovascular: Reports: Edema. Denies: Chest Pain, Palpitations Respiratory: Denies: Cough, Shortness of Breath Gastrointestinal: Denies: Diarrhea, Nausea, Vomiting Genitourinary: Denies: Dysuria, Hematuria Skin: Reports: Pruritis - R lewis, Wounds - R lewis Neurological: Reports: Numbness - feet. Denies: Slurred speech Psychiatric: Denies: Anxiety, Depression Endocrine: Denies: Heat/ Cold Intolerance, Polydipsia, Polyuria Hematologic/ Lymphatic: Denies: Easy Bruising, Easy Bleeding - Physical Exam Vital Signs Temp Pulse Resp BP 95.0 F L 76 22 H 151/76 H 06/08/17 14:06 06/08/17 14:06 06/08/17 14:06 06/08/17 14:06 General: Alert, Oriented x3, Cooperative, No apparent distress Abdomen: Obese Extremities: No clubbing, No cyanosis, Capillary Refill Less than 3 Seconds, No Calf Tenderness, Edema, Peripheral Pulses Normal Skin: Ulcer/ Wound - R lewis with no erythema, no pus, no malodor, no calor, no pain. No clinical signs of acute bacterial infection noted. See wound/edema assessment below. Wound Measurements and Assessment WC - Nurse 1 - General Ulcer Measurement Start: 05/14/17 11:24 Freq: Status: Active Protocol: Activity Type Activity Date Activity User E-Sign Co-Sign Detail Recorded Client Recorded Date Recorded By Document 06/08/17 14:06 TM [id number] 06/08/17 14:16 TM 06/08/17 14:06 Wound Center Nurse 1 [Ulcer Assessment] #11- LT MEDIAL CALF -Combined with other wound No -Current Size (cm) - Length 0 -Current Size (cm) - Width 0 -Current Size (cm) - Depth 0 -Total Square Cm 0 -Date of Last Picture (Recall this 06/08/17 field) -Photo Taken Yes -Epithelialization Large 67-100% -Tunneling No -Undermining/Tunneling No -Circular Undermining No -Classification - Thickness Full Thickness without Exposed Support Structure -Exudate Amt None Present (0 %) -Wound Margin Distinct, Outline Attached -Granulation Amt Large (67-100%) -Granulation Quality Bier -Slough/Fibrin No -Necrosis Amt None Present (0 %) -Structure Exposed None/Limited to Skin Breakdown -Texture (Michelle-wound Skin Appearance) No Abnormality -Moisture (Michelle-wound Skin Appearance Dry/Scaly ) -Color (Michelle-wound Skin Appearance) No Abnormality -Temperature (Michelle-wound Skin No Abnormality Appearance) (Pt Warm) -Tenderness on Palpation (Michelle-wound No Skin Appearance) -Ulcer Cleansing Rinsed/ Irrigated with Saline -Foul Odor after Cleansing No #10- RT LEWIS CLUSTER -Combined with other wound No -Current Size (cm) - Length 2.9 -Current Size (cm) - Width 0.5 -Current Size (cm) - Depth 0.1 -Total Square Cm 1.45 -Photo Taken No -Epithelialization Small 1-33% -Tunneling No -Undermining/Tunneling No -Circular Undermining No -Classification - Thickness Full Thickness without Exposed Support Structure -Exudate Amt Small (1-33%) -Exudate Type Serosanguineous -Wound Margin Distinct, Outline Attached -Granulation Amt Large (67-100%) -Granulation Quality Bier -Slough/Fibrin Yes -Necrosis Amt Small (1-33%) -Necrotic Tissue Type Adherent Slough -Structure Exposed Fascia Fat Layer Exposed -Texture (Michelle-wound Skin Appearance) Localized Edema Scarring -Moisture (Michelle-wound Skin Appearance No Abnormality ) -Color (Michelle-wound Skin Appearance) Erythema Hemosiderin Staining -Temperature (Michelle-wound Skin No Abnormality Appearance) (Pt Warm) -Tenderness on Palpation (Imchelle-wound No Skin Appearance) -Ulcer Cleansing Rinsed/ Irrigated with Saline -Foul Odor after Cleansing No -Anesthetic Used 4% Lidocaine Solution [Edema Assessment] -Lower Limb Edema Present Yes -Right Calf (cm) 45.8 -Right Ankle (cm) 24.0 -Left Calf (cm) 45.0 -Left Ankle (cm) 24.3 WC - Nurse 2 - General Ulcer CM Notes Start: 05/14/17 11:24 Freq: Status: Active Protocol: Activity Type Activity Date Activity User E-Sign Co-Sign Detail Recorded Client Recorded Date Recorded By Document 06/08/17 14:44 MW [id number] 06/08/17 14:50 MW 06/08/17 14:44 Wound Center Nurse 2 [Procedure/Treatment] #10- RT LEWIS CLUSTER -Time 14:44 -Correct Patient Yes -Correct Side, Site, Position Yes -Correct Procedure Yes -Procedure Performed Yes -Type of Procedure Debridement -Clinical Debridement Subcutaneous -Post Debridement Size (cm) - Length 2.9 -Post Debridement Size (cm) - Width 0.6 -Post Debridement Size (cm) - Depth 0.1 -Total Square Cm 1.74 -Wound/Ulcer Outcome Not Healed -Ulcer Cleansing Rinsed/ Irrigated with Saline -Foul Odor after Cleansing No -Bioengineered Tissue No -Bleeding Controlled with Pressure -Treatment Response Procedure Tolerated Well [See Physician Procedure note for Specifics] Pain Scale: 0-10 Numeric [Pain] -Is Patient Pain Free? Yes Musculoskeletal: No Tenderness to Palpation of Joints or Extremities, No Muscle Wasting Neurological: Motor Exam 5/5 strength throughout, Sensory exam intact to light touch and pain - but LOPS with SWMF 5.07 b/l feet, Coordination normal, Gait narrow based and stable Psych/Mental Status: Alert and oriented to time, place, person, mood and affect - wnl Debridement Note Post-Debridement Measurements/Treatment WC - Nurse 2 - General Ulcer CM Notes Start: 05/14/17 11:24 Freq: Status: Active Protocol: Activity Type Activity Date Activity User E-Sign Co-Sign Detail Recorded Client Recorded Date Recorded By Document 05/14/17 12:27 MW [id number] 05/14/17 12:29 MW Document 05/28/17 13:43 TM [id number] 05/28/17 13:52 TM Document 06/08/17 14:44 MW [id number] 06/08/17 14:50 MW 05/14/17 05/28/17 06/08/17 12:27 13:43 14:44 Wound Center Nurse 2 #11- LT MEDIAL CALF -Time 13:50 -Correct Patient Yes -Correct Side, Site, Position Yes -Correct Procedure Yes -Procedure Performed Yes -Type of Procedure Debridement -Clinical Debridement Subcutaneous -Post Debridement Size (cm) - Length 0.4 -Post Debridement Size (cm) - Width 0.5 -Post Debridement Size (cm) - Depth 0.1 -Total Square Cm 0.20 -Wound/Ulcer Outcome Not Healed -Ulcer Cleansing Rinsed/ Irrigated with Saline -Foul Odor after Cleansing No -Bioengineered Tissue No -Topical Lidocaine (%) 4 -Bleeding Controlled with Pressure -Treatment Response Procedure Tolerated Well #10- RT LEWIS CLUSTER -Time 13:50 14:44 -Correct Patient Yes Yes -Correct Side, Site, Position Yes Yes -Correct Procedure Yes Yes -Procedure Performed Yes Yes -Type of Procedure Debridement Debridement -Clinical Debridement Subcutaneous Subcutaneous -Post Debridement Size (cm) - Length 6.3 2.9 -Post Debridement Size (cm) - Width 5.0 0.6 -Post Debridement Size (cm) - Depth 0.1 0.1 -Total Square Cm 31.50 1.74 -Wound/Ulcer Outcome Not Healed Not Healed -Ulcer Cleansing Rinsed/ Rinsed/ Irrigated with Irrigated with Saline Saline -Foul Odor after Cleansing No No -Bioengineered Tissue No No -Topical Lidocaine (%) 4 -Bleeding Controlled with Pressure Pressure -Treatment Response Procedure Procedure Tolerated Well Tolerated Well #8 RIGHT POSTERIOR KNEE (POPLITEAL) -Time 12:28 -Correct Patient Yes -Correct Side, Site, Position Yes -Correct Procedure Yes -Procedure Performed No -Post Debridement Size (cm) - Length 0 -Post Debridement Size (cm) - Width 0 -Post Debridement Size (cm) - Depth 0 -Total Square Cm 0 -Wound/Ulcer Outcome Healed- Epithelialized -Ulcer Cleansing Not Cleansed -Foul Odor after Cleansing No -Bioengineered Tissue No -Bleeding Controlled with NA -Treatment Response Procedure Tolerated Well Pain Scale: 0-10 Numeric Is Patient Pain Free? Yes Yes Yes Wound debrided: R lewis Laterality: Right Wound Grade/Stage: full thickness VLU Type of Debridement: Excisional debridement Anesthesia Used: 4% Lidocaine Solution Depth: Down to and including healthy tissue, in the subcutaneous layer Percentage of wound debrided: 100 Instrument Used: 3mm curette Tissue Removed: fibrous slough Severity: Fat Layer Exposed Amount of bleeding with debridement: Mild Bleeding Controlled with: Pressure, Compression and gauze Patient tolerated procedure well Assessment/Plan Active Problems Venous ulcer of left lower extremity without varicose veins (Chronic) Venous ulcer of right lower extremity without varicose veins (Chronic) Non-pressure chronic ulcer of other part of right lower leg with fat layer exposed (Acute) Venous insufficiency (chronic) (peripheral) (Chronic) Type 2 diabetes mellitus with peripheral neuropathy (Chronic) HTN (hypertension) (Chronic) Neuropathy (Chronic) Blister of lower extremity without infection (Acute) Obesity (Acute) Lower extremity edema (Chronic) Non-pressure ulcer of left lower extremity with fat layer exposed (Chronic) Peripheral vascular obstructive disease (Chronic) Non-pressure ulcer of right lower extremity with fat layer exposed (Chronic) Edema of both legs (Chronic) Diabetes (Chronic) Assessment: Peripheral vascular occlusive disease. Edema bilateral lower legs. Bilateral venous lower leg ulcers. Diabetes uncontrolled Plan: ESCAPEMENT MATCHER exam. SQ/excisional debridement R lewis ulcer as above. Stop Aquacel, start silvercell to the right lewis ulcer. No other open wounds on the lower extremities. Did receive Circaids, start 20-30 mmHg juxta-lite. Ulcer does not require offloading due to location, but do not cross legs. Monitor for redness, pus, malodor, warmth, pain, inc swelling as well as N/V/F/C and go to the ED with these. Will have him f/u in 1 week. Call with questions. Discussed importance of tight blood sugar control, adequate nutrition especially increased protein intake to promote healing. Discussed importance of leg elevation, avoiding idle sitting or standing, using the compression wraps--apply in AM, remove before sleep, increased activity, weight management, and taking anti-inflammatories for pain as tolerated/needed.
--- NOTE | 2017-06-08 15:45 | HP.PCM_ITS ---
(1) Non-pressure chronic ulcer of other part of right lower leg with fat layer exposed Status: Acute Current Visit: Yes Code(s): L97.812 - Non-pressure chronic ulcer of other part of right lower leg with fat layer exposed (2) Type 2 diabetes mellitus with peripheral neuropathy Status: Chronic Current Visit: Yes Code(s): E11.42 - Type 2 diabetes mellitus with diabetic polyneuropathy (3) Venous insufficiency (chronic) (peripheral) Status: Chronic Current Visit: Yes Code(s): I87.2 - Venous insufficiency ( chronic) (peripheral) (4) Lower extremity edema Status: Chronic Current Visit: Yes Code(s): R60.0 - Localized edema History of Present Illness Date of Service: 06/08/17 Chief Complaint: R lewis ulcer History of Wound: This 66-year-old diabetic man presents to the wound center today for recurrence of R lewis ulcer. He is accompanied by his and they report that he has been compliant with tubigrip compression but has had itching and developed these open areas after scratching in the middle of the night. His has been applying aquacel ag to the wound, notes that he was improved, but re-developed ulcers again due to scratching his lewis in the middle of hte night. She notes a moderate amount of drainage from the wounds on his right leg especially. They have seen vascular surgery and he underwent a procedure on his right leg but they will not do anything to his left leg until there are no wounds. Patient and his both deny any purulence or malodor to the areas and the patient also denies any feelings of nausea, vomiting, fever, chills. Past Medical History Past Medical History: Chronic Problems Venous ulcer of left lower extremity without varicose veins (Chronic) Venous ulcer of right lower extremity without varicose veins (Chronic) Venous insufficiency (chronic) (peripheral) (Chronic) Cerebrovascular accident (CVA) of left pontine structure (Chronic) Non compliance w medication regimen (Chronic) Type 2 diabetes mellitus with peripheral neuropathy (Chronic) HTN (hypertension) (Chronic) TIA (transient ischemic attack) (Chronic) Neuropathy (Chronic) NAHED (obstructive sleep apnea) (Chronic) Lower extremity edema (Chronic) Non-pressure ulcer of left lower extremity with fat layer exposed (Chronic) Peripheral vascular obstructive disease (Chronic) Non-pressure ulcer of right lower extremity with fat layer exposed (Chronic) Edema of both legs (Chronic) Diabetes (Chronic) Surgical History: - - EVLA RLE by Dr. Ho Allergies/Adverse Reactions: Allergies lisinopril Allergy (Verified 03/22/17 20:58) COUGH simvastatin Allergy (Verified 03/22/17 20:58) Unknown Home Medications: Ambulatory Orders Medication Instructions Recorded Aspirin [Aspirin, Baby] 81 mg PO DAILY@0800 10/07/16 Diclofenac [Voltaren] 75 mg PO BID PRN PRN 10/07/16 Levothyroxine [Synthroid] 50 mcg PO DAILY 10/07/16 Losartan/Hydrochlorothiazide 1 each PO DAILY 10/07/16 [Losartan-Hctz 100-25 mg Tab] Insulin Aspart [Novolog Flexpen] 22 units SC BREAKFAST 11/05/16 Insulin NPH Human [Humulin N Pen] 24 units SC DINNER 11/05/16 Insulin Regular, Human [Novolin R] 18 unit SC QHS 11/05/16 Insulin Regular, Human [Novolin R] 26 unit SC LUNCH 03/22/17 Cephalexin 500 mg PO BID 03/25/17 Furosemide [Lasix] 20 mg PO DAILY 03/25/17 Ibuprofen 600 mg PO TID 04/08/17 - Family History Maternal No pertinent history Paternal No pertinent history Lives: Spouse/ Significant Other Smoking Status: Never smoker Tobacco Use: Non-smoker Alcohol: None Drugs: None Review of Systems Constitutional: Denies: Chills, Fever, Weight Change Eyes: Denies: Pain, Vision Change HEENT: Denies: Difficulty Hearing, Difficulty Swallowing, Sinus Congestion Cardiovascular: Reports: Edema. Denies: Chest Pain, Palpitations Respiratory: Denies: Cough, Shortness of Breath Gastrointestinal: Denies: Diarrhea, Nausea, Vomiting Genitourinary: Denies: Dysuria, Hematuria Skin: Reports: Pruritis - R lewis, Wounds - R lewis Neurological: Reports: Numbness - feet. Denies: Slurred speech Psychiatric: Denies: Anxiety, Depression Endocrine: Denies: Heat/ Cold Intolerance, Polydipsia, Polyuria Hematologic/ Lymphatic: Denies: Easy Bruising, Easy Bleeding - Physical Exam Vital Signs Temp Pulse Resp BP 95.0 F L 76 22 H 151/76 H 06/08/17 14:06 06/08/17 14:06 06/08/17 14:06 06/08/17 14:06 General: Alert, Oriented x3, Cooperative, No apparent distress Abdomen: Obese Extremities: No clubbing, No cyanosis, Capillary Refill Less than 3 Seconds, No Calf Tenderness, Edema, Peripheral Pulses Normal Skin: Ulcer/ Wound - R lewis with no erythema, no pus, no malodor, no calor, no pain. No clinical signs of acute bacterial infection noted. See wound/edema assessment below. Wound Measurements and Assessment WC - Nurse 1 - General Ulcer Measurement Start: 05/14/17 11:24 Freq: Status: Active Protocol: Activity Type Activity Date Activity User E-Sign Co-Sign Detail Recorded Client Recorded Date Recorded By Document 06/08/17 14:06 TM [id number] 06/08/17 14:16 TM 06/08/17 14:06 Wound Center Nurse 1 [Ulcer Assessment] #11- LT MEDIAL CALF -Combined with other wound No -Current Size (cm) - Length 0 -Current Size (cm) - Width 0 -Current Size (cm) - Depth 0 -Total Square Cm 0 -Date of Last Picture (Recall this 06/08/17 field) -Photo Taken Yes -Epithelialization Large 67-100% -Tunneling No -Undermining/Tunneling No -Circular Undermining No -Classification - Thickness Full Thickness without Exposed Support Structure -Exudate Amt None Present (0 %) -Wound Margin Distinct, Outline Attached -Granulation Amt Large (67-100%) -Granulation Quality Mcgrew -Slough/Fibrin No -Necrosis Amt None Present (0 %) -Structure Exposed None/Limited to Skin Breakdown -Texture (Michelle-wound Skin Appearance) No Abnormality -Moisture (Michelle-wound Skin Appearance Dry/Scaly ) -Color (Michelle-wound Skin Appearance) No Abnormality -Temperature (Michelle-wound Skin No Abnormality Appearance) (Pt Warm) -Tenderness on Palpation (Michelle-wound No Skin Appearance) -Ulcer Cleansing Rinsed/ Irrigated with Saline -Foul Odor after Cleansing No #10- RT LEWIS CLUSTER -Combined with other wound No -Current Size (cm) - Length 2.9 -Current Size (cm) - Width 0.5 -Current Size (cm) - Depth 0.1 -Total Square Cm 1.45 -Photo Taken No -Epithelialization Small 1-33% -Tunneling No -Undermining/Tunneling No -Circular Undermining No -Classification - Thickness Full Thickness without Exposed Support Structure -Exudate Amt Small (1-33%) -Exudate Type Serosanguineous -Wound Margin Distinct, Outline Attached -Granulation Amt Large (67-100%) -Granulation Quality Mcgrew -Slough/Fibrin Yes -Necrosis Amt Small (1-33%) -Necrotic Tissue Type Adherent Slough -Structure Exposed Fascia Fat Layer Exposed -Texture (Michelle-wound Skin Appearance) Localized Edema Scarring -Moisture (Michelle-wound Skin Appearance No Abnormality ) -Color (Michelle-wound Skin Appearance) Erythema Hemosiderin Staining -Temperature (Michelle-wound Skin No Abnormality Appearance) (Pt Warm) -Tenderness on Palpation (Michelle-wound No Skin Appearance) -Ulcer Cleansing Rinsed/ Irrigated with Saline -Foul Odor after Cleansing No -Anesthetic Used 4% Lidocaine Solution [Edema Assessment] -Lower Limb Edema Present Yes -Right Calf (cm) 45.8 -Right Ankle (cm) 24.0 -Left Calf (cm) 45.0 -Left Ankle (cm) 24.3 WC - Nurse 2 - General Ulcer CM Notes Start: 05/14/17 11:24 Freq: Status: Active Protocol: Activity Type Activity Date Activity User E-Sign Co-Sign Detail Recorded Client Recorded Date Recorded By Document 06/08/17 14:44 MW [id number] 06/08/17 14:50 MW 06/08/17 14:44 Wound Center Nurse 2 [Procedure/Treatment] #10- RT LEWIS CLUSTER -Time 14:44 -Correct Patient Yes -Correct Side, Site, Position Yes -Correct Procedure Yes -Procedure Performed Yes -Type of Procedure Debridement -Clinical Debridement Subcutaneous -Post Debridement Size (cm) - Length 2.9 -Post Debridement Size (cm) - Width 0.6 -Post Debridement Size (cm) - Depth 0.1 -Total Square Cm 1.74 -Wound/Ulcer Outcome Not Healed -Ulcer Cleansing Rinsed/ Irrigated with Saline -Foul Odor after Cleansing No -Bioengineered Tissue No -Bleeding Controlled with Pressure -Treatment Response Procedure Tolerated Well [See Physician Procedure note for Specifics] Pain Scale: 0-10 Numeric [Pain] -Is Patient Pain Free? Yes Musculoskeletal: No Tenderness to Palpation of Joints or Extremities, No Muscle Wasting Neurological: Motor Exam 5/5 strength throughout, Sensory exam intact to light touch and pain - but LOPS with SWMF 5.07 b/l feet, Coordination normal, Gait narrow based and stable Psych/Mental Status: Alert and oriented to time, place, person, mood and affect - wnl Debridement Note Post-Debridement Measurements/Treatment WC - Nurse 2 - General Ulcer CM Notes Start: 05/14/17 11:24 Freq: Status: Active Protocol: Activity Type Activity Date Activity User E-Sign Co-Sign Detail Recorded Client Recorded Date Recorded By Document 05/14/17 12:27 MW [id number] 05/14/17 12:29 MW Document 05/28/17 13:43 TM [id number] 05/28/17 13:52 TM Document 06/08/17 14:44 MW [id number] 06/08/17 14:50 MW 05/14/17 05/28/17 06/08/17 12:27 13:43 14:44 Wound Center Nurse 2 #11- LT MEDIAL CALF -Time 13:50 -Correct Patient Yes -Correct Side, Site, Position Yes -Correct Procedure Yes -Procedure Performed Yes -Type of Procedure Debridement -Clinical Debridement Subcutaneous -Post Debridement Size (cm) - Length 0.4 -Post Debridement Size (cm) - Width 0.5 -Post Debridement Size (cm) - Depth 0.1 -Total Square Cm 0.20 -Wound/Ulcer Outcome Not Healed -Ulcer Cleansing Rinsed/ Irrigated with Saline -Foul Odor after Cleansing No -Bioengineered Tissue No -Topical Lidocaine (%) 4 -Bleeding Controlled with Pressure -Treatment Response Procedure Tolerated Well #10- RT LEWIS CLUSTER -Time 13:50 14:44 -Correct Patient Yes Yes -Correct Side, Site, Position Yes Yes -Correct Procedure Yes Yes -Procedure Performed Yes Yes -Type of Procedure Debridement Debridement -Clinical Debridement Subcutaneous Subcutaneous -Post Debridement Size (cm) - Length 6.3 2.9 -Post Debridement Size (cm) - Width 5.0 0.6 -Post Debridement Size (cm) - Depth 0.1 0.1 -Total Square Cm 31.50 1.74 -Wound/Ulcer Outcome Not Healed Not Healed -Ulcer Cleansing Rinsed/ Rinsed/ Irrigated with Irrigated with Saline Saline -Foul Odor after Cleansing No No -Bioengineered Tissue No No -Topical Lidocaine (%) 4 -Bleeding Controlled with Pressure Pressure -Treatment Response Procedure Procedure Tolerated Well Tolerated Well #8 RIGHT POSTERIOR KNEE (POPLITEAL) -Time 12:28 -Correct Patient Yes -Correct Side, Site, Position Yes -Correct Procedure Yes -Procedure Performed No -Post Debridement Size (cm) - Length 0 -Post Debridement Size (cm) - Width 0 -Post Debridement Size (cm) - Depth 0 -Total Square Cm 0 -Wound/Ulcer Outcome Healed- Epithelialized -Ulcer Cleansing Not Cleansed -Foul Odor after Cleansing No -Bioengineered Tissue No -Bleeding Controlled with NA -Treatment Response Procedure Tolerated Well Pain Scale: 0-10 Numeric Is Patient Pain Free? Yes Yes Yes Wound debrided: R lewis Laterality: Right Wound Grade/Stage: full thickness VLU Type of Debridement: Excisional debridement Anesthesia Used: 4% Lidocaine Solution Depth: Down to and including healthy tissue, in the subcutaneous layer Percentage of wound debrided: 100 Instrument Used: 3mm curette Tissue Removed: fibrous slough Severity: Fat Layer Exposed Amount of bleeding with debridement: Mild Bleeding Controlled with: Pressure, Compression and gauze Patient tolerated procedure well Assessment/Plan Active Problems Venous ulcer of left lower extremity without varicose veins (Chronic) Venous ulcer of right lower extremity without varicose veins (Chronic) Non-pressure chronic ulcer of other part of right lower leg with fat layer exposed (Acute) Venous insufficiency (chronic) (peripheral) (Chronic) Type 2 diabetes mellitus with peripheral neuropathy (Chronic) HTN (hypertension) (Chronic) Neuropathy (Chronic) Blister of lower extremity without infection (Acute) Obesity (Acute) Lower extremity edema (Chronic) Non-pressure ulcer of left lower extremity with fat layer exposed (Chronic) Peripheral vascular obstructive disease (Chronic) Non-pressure ulcer of right lower extremity with fat layer exposed (Chronic) Edema of both legs (Chronic) Diabetes (Chronic) Assessment: Peripheral vascular occlusive disease. Edema bilateral lower legs. Bilateral venous lower leg ulcers. Diabetes uncontrolled Plan: UTILIZATION REVIEW RN exam. SQ/excisional debridement R lewis ulcer as above. Stop Aquacel, start silvercell to the right lewis ulcer. No other open wounds on the lower extremities. Did receive Circaids, start 20-30 mmHg juxta-lite. Ulcer does not require offloading due to location, but do not cross legs. Monitor for redness , pus, malodor, warmth, pain, inc swelling as well as N/V/F/C and go to the ED with these. Will have him f/u in 1 week. Call with questions. Discussed importance of tight blood sugar control, adequate nutrition especially increased protein intake to promote healing. Discussed importance of leg elevation, avoiding idle sitting or standing, using the compression wraps-- apply in AM, remove before sleep, increased activity, weight management, and taking anti-inflammatories for pain as tolerated/needed.
--- NOTE | 2017-06-08 15:52 | WC ---
On May this nurse entered the room to provide teaching to both patient and on the application of new CircAids. This nurse, in giving direction to the , first explained the directions- using the pictures as visual aids, explained the individual pieces to be applied, the measuring device and how to measure, and when to apply and take off the CircAids. The patient refused to open his eyes or help lift his legs thus causing both the and I to struggle to do so. The CircAid was first applied to the patient's left leg with the watching and asking questions. She kept repeating she was stupid and she did not understand. This nurse explained how to not only apply the CircAid, but explained how to measure for proper compression several different ways so that the would understand. She then became irate and tearful stating this nurse was being rude and abrupt with her and demonstrating no patience for her. She stated I would be reported and would never come back here again. She insisted on leaving, also stating that she would go to [facility], that she knew Diomedes, and that Matilda being his cousin. She stated they would take care of her. This nurse calmly and gently explained to her that I believed she was able to apply the aids and lets try one more time- encouraging her to apply the aid to the right leg of her . At first she refused, stating she was dumb and overwhelmed and that again I was disrespectful, stating again she was leaving. Again I encouraged her to take a deep breath and lets do this together. She did attempt to apply the aid and was very successful. This nurse also encouraged and got a High Five from her. This was reported to the Nurse Edge Worker and Buckle Strap Puncher
== END 2017-06-12 23:59 ==
LOC: WC 14:00
PROVIDERS: Family Provider Internal Medicine; PCP Internal Medicine; Visit Provider Podiatrist Foot & Ankle Surgery
DX: E11.622 Type 2 diabetes mellitus with other skin ulcer (principal); E11.42 Type 2 diabetes mellitus with diabetic polyneuropathy; E11.51 Type 2 diabetes mellitus with diabetic peripheral angiopathy without gangrene; R60.0 Localized edema; E11.65 Type 2 diabetes mellitus with hyperglycemia; I10 Essential (primary) hypertension; E66.9 Obesity, unspecified; G47.33 Obstructive sleep apnea (adult) (pediatric); Z86.73 Personal history of transient ischemic attack (TIA), and cerebral infarction without residual deficits; Z79.4 Long term (current) use of insulin; Z79.899 Other long term (current) drug therapy; Z79.82 Long term (current) use of aspirin; L97.222 Non-pressure chronic ulcer of left calf with fat layer exposed; L97.812 Non-pressure chronic ulcer of other part of right lower leg with fat layer exposed
CPT/HCPCS: 11042; 11045; 99213; G0463

== ENCOUNTER → 2017-06-11 08:39 | Outpatient (CLI) | payer MEDICARE, SELFPAY ==
--- NOTE | 2017-06-11 08:41 | US_ITS ---
STUDY: ABDOMINAL ULTRASOUND - RIGHT UPPER QUADRANT REASON FOR VISIT: Male, 66 years old. Right upper quadrant pain, intermittent nausea and vomiting TECHNIQUE: Ultrasound evaluation of the right upper quadrant was performed with real-time and static curiel-scale imaging. TECHNICAL QUALITY: Adequate. COMPARISON: None. FINDINGS: Liver: The liver measures 22.9 cm. There is increased echogenicity consistent with fatty infiltration. The bile ducts are within normal limits. There is hepatic color flow. The direction of portal flow is hepatopetal. There is no demonstrated mass lesion. Gallbladder: Normal distended gallbladder. The gallbladder wall measures 2.9 mm. There is a positive sonographic Lucas's sign. There is no pericholecystic fluid. There is a large solitary gallbladder stone measuring 2.7 cm. Common Bile Duct (C.B.D.): The common bile duct measures 5.2 mm. Pancreas: Normal size of the head, body and tail of the pancreas. There is normal echogenicity of the pancreas. There is no demonstrated pancreatic mass or cyst. Right Kidney: There is hypertrophy of the right kidney. The right kidney measures 15.2 x 6.8 x 6.6 cm. Normal renal cortex. The right cortex measures 2.5 cm. There is no demonstrated renal mass or cyst. There is no right hydronephrosis. There is a 4 mm right renal calculus, nonobstructing. US/Gallbladder IMPRESSION: 1. Hepatomegaly. Echogenic liver consistent with steatosis. 2. Cholelithiasis. A positive Lucas sign was elicited as per chiller technician. There is no gallbladder wall thickening or pericholecystic fluid. 3. Hypertrophic right kidney. Nonobstructing 4 mm right renal calculus. Electronically Signed: Rex Ruggiero MD at 17:21 EDT , Service support ,
== END ==
PROVIDERS: Family Provider Internal Medicine; PCP Internal Medicine; Visit Provider Internal Medicine Gastroenterology
DX: R11.2 Nausea with vomiting, unspecified (principal)
CPT/HCPCS: 76705

== ENCOUNTER 2017-06-14 12:31 | Emergency (ER) | payer MEDICARE, SELFPAY ==
[2017-06-14 12:32] VITALS: BP 197/82; PULSE 88; RESP 24; TEMP 36.8; O2SAT 94; BMI 42.8
--- NOTE | 2017-06-14 12:50 | CT_ITS ---
STUDY: CT BRAIN WITHOUT CONTRAST REASON FOR EXAM: Male, 66 years old. Headache, dizziness, general illness. Hx hypertension, diabetes. RADIATION DOSAGE (If Supplied By Facility): CTDIvol = ( 44.99 ) mGy, DLP = ( 846.73 ) mGycm TECHNIQUE: Transaxial CT imaging of the brain was performed without administration of intravenous contrast material. Individualized dose optimization techniques were used for this CT. COMPARISON: None. FINDINGS: Normal soft tissue structures. Normal calvarium. There is mild cerebral atrophy with widening of the extra-axial spaces and ventricular dilatation. There are areas of decreased attenuation within the white matter tracts of the supratentorial brain, consistent with microvascular disease changes. Normal basal ganglia and thalami. Normal brainstem. Normal cerebellum. There is no intracranial hemorrhage. There are no findings of an acute ischemic infarction. Normal visualized paranasal sinuses. CT/Brain/Head without Contrast IMPRESSION: Chronic involutional changes of the brain. Electronically Signed: Ayesha Andre MD at 13:58 EDT Tel , Service support ,
--- NOTE | 2017-06-14 12:51 | EKG12_ITS ---
Test Reason : SOB Blood Pressure : / mmHG Vent. Rate : 090 BPM Atrial Rate : 090 BPM P-R Int : 142 ms QRS Dur : 098 ms QT Int : 402 ms P-R-T Axes : 035 -42 068 degrees QTc Int : 491 ms Sinus rhythm with occasional Premature ventricular complexes Left axis deviation Prolonged QT Abnormal ECG Confirmed by ADOLFO BOBBY, GLORIA ([id number]), purchasing expeditor JONNIE SAN ([id number]) on 06/18/2017 1:05:34 PM Referred By: Aki Barnes Confirmed By:GLORIA MATA MD
[2017-06-14] MEDS: 0.9% Normal Saline 1,000 ML 150 ML IV (13:08)
--- NOTE | 2017-06-14 13:10 | RAD_ITS ---
STUDY: X-RAY CHEST REASON FOR EXAM: Male, 66 years old. DYSPNEA TECHNIQUE: Single AP portable view of the chest. COMPARISON: None. FINDINGS: The lungs are clear and expanded. There is no demonstrated pleural abnormality. Normal size heart. Normal mediastinum and maye. Normal visualized pulmonary arteries. Normal visualized aortic arch and descending thoracic aorta. Normal visualized thoracic spine. Normal visualized ribs, clavicles, and shoulders. There is no demonstrated abnormality of the visualized soft tissue structures of the upper abdomen. RAD/Chest 1 View (Portable) IMPRESSION: Normal x-ray examination of the chest. Electronically Signed: Ayesha Andre MD at 13:32 EDT Tel , Service support ,
[2017-06-14 13:32] LABS: Absolute Lymphocyte Count 0.57 X10^3/ul (0.83-4.51); Absolute Neutrophil Count 8.5 X10^3/uL (2.0-7.7); Basophil# 0.01 X10^3/uL; Basophil% 0.1 % (0-1); Lymphocyte # 0.57 X10^3/ul (4.0); Lymphocyte % 5.8 % (19-41); Mean Corp Hgb Conc 32.5 g/gl (32-36); Mean Corpuscular Hgb 29.2 pg (27.0-32.0); Mean Corpuscular Volume 89.9 fL (80-94); Monocyte# 0.59 X10^3/uL; Neutrophil # 8.47 X10^3/uL (2.7-7.7); Neutrophil % 86.8 % (47-70); Platelet Count 221 K/mm3 (150-450); Red Blood Count 4.45 M/mm3 (4.6-6.2); White Blood Count 9.8 K/mm3 (4.4-11.0)
[2017-06-14 13:38] LABS: Anion Gap 6 (5-15); BUN 23 mg/dL (7-18); Calcium,Total 8.8 mg/dL (8.5-10.1); Chloride 104 mmol/L (98-107); EST Glomerular Filtration Rate 79 mL/min (>60); Est Glom Filt Rate - Afr Amer 95 mL/min (>60); Glucose 325 mg/dL (74-106); Potassium 4.3 mmol/L (3.5-5.1); Sodium Level 138 mmol/L (136-145)
[2017-06-14 13:42] VITALS: BP 180/110; BP 184/115; BP 196/87; PULSE 100; PULSE 91; PULSE 96
[2017-06-14 13:43] LABS: BNP,B-Type NATRIURETIC PEPTIDE 133.9 pg/mL (0-100)
[2017-06-14 13:48] LABS: Differential Indicated SCAN CRITERIA MET; POSITIVE COUNT NO; POSITIVE DIFFERENTIAL YES; POSITIVE MORPHOLOGY NO
[2017-06-14 13:53] LABS: Red Cell Morphology NORM C+C NORMAL (NORM C&C)
[2017-06-14 14:56] VITALS: BP 181/67; PULSE 89; RESP 20; O2SAT 97
[2017-06-14] MEDS: Meclizine 12.5 MG Tablet 25 MG PO (15:13)
[2017-06-14 15:29] LABS: D-Dimer Quantitative (DVT/PE) 0.52 FEU/ug/m (0.27-0.49)
--- NOTE | 2017-06-14 15:30 | ED.RN ---
DR ELIZABETH NOTIFIED OF DDIMER RESULTS
[2017-06-14 16:01] VITALS: BP 179/77; PULSE 87; RESP 22; O2SAT 96
--- NOTE | 2017-06-14 16:27 | ED.DCSUM_ITS ---
- ER Visit Summary Date of Service: 06/14/17 Chief Complaint: [Dizziness and dyspnea] History of Present Illness: The patient is a 66 M [presents to the emergency department with complaints ?2 days. Patient has multiple complaints but mostly here today for feeling lightheaded that is worse with walking and head position. Patient apparently had dizziness and was diagnosed with crystals in his ears and underwent a positional procedure that sounds like the Ben maneuver which helped resolve his symptoms. Per patient also has had a cough for about a year and they have had multiple investigations into the cough including evaluation by gastroenterology. Patient denies any chest pain. also noted some blood in his underwear today and she is not sure if he has a hemorrhoid. Patient has prior history of stroke, diabetes, hypertension, leg edema, obesity, hypothyroidism, and gastritis. Past surgical history-none.] Physical Examination: [HEENT-PERRLA, EOMI. Cranial nerves II through XII grossly intact. TMs clear. Mucous membranes moist. No adenopathy. Cardiovascular-regular rate and rhythm without murmur or ectopy Lungs-clear to auscultation, chest wall stable without crepitus or subcu emphysema Abdomen-normoactive bowel sounds, soft, nontender, no rebound or rigidity, no peritoneal signs Rectal exam-no masses, brown stool, Hemoccult negative Neuro drjq-nldiic-feug and heel lewis testing within normal limits, negative Romberg, negative pronator drift, fundi benign. Hallpike maneuver was negative for nystagmus. Extremities-intact ?4, normal range of motion, normal pulses, atraumatic] Test Results: [EKG obtained arrival shows sinus rhythm with a ventricular rate of 90 bpm with occasional PVCs noted. CBC with differential showed a white count of 4.8, hemoglobin 13, hematocrit 40, platelets 221. Chemistries unremarkable. Glucose was 325. Troponin was 0.02. BNP was 133 and d-dimer was 0.5-1 adjusted for age it is normal. Chest x-ray was normal. CT scan of the brain showed chronic involutional changes.] Emergency Department Course and Treatment: [Patient was given Antivert 25 mg p.o. At this point he has been up to the bathroom several times and does not complain of a dizziness.] Treatment Plan: [Patient will be referred to Dr. Kellogg for follow-up regarding the suspected vertigo. Patient also referred back to their primary care physician regarding the chronic cough and I did note that patient is on losartan which could cause a chronic cough.] Disposition: [Discharged to home in stable condition] Impression: [Dizziness-suspect vertigo Chronic cough-suspect secondary to losartan] This note was generated with [employer] Home [employer] dictation software. It may contain incorrect words, spelling, and punctuation that were not noted in review of the chart prior to signing ED Disposition - Plan for ED Patient: Chief Complaint: Shortness of Breath Referrals: Elenita Topete MD [Primary Care Provider] -
--- NOTE | 2017-06-14 16:27 | ED.DEP ---
ED Disposition - Plan for ED Patient: Chief Complaint: Shortness of Breath Instructions: ED Vertigo Unspecified, ED Drug React Adverse Other Prescriptions: Meclizine HCl [Antivert] 25 mg PO 4X/DAY PRN PRN #20 tab PRN Reason: Dizziness Referrals: Elenita Topete MD [Primary Care Provider] - 3-5 Days
[2017-06-14 16:40] VITALS: BP 138/89; PULSE 72; RESP 15; O2SAT 96
== END 2017-06-14 16:42 | disposition home or self-care (01) ==
PROVIDERS: Emergency Provider Emergency Medicine; Family Provider Internal Medicine; PCP Internal Medicine
DX: R42 Dizziness and giddiness (principal); R05 Cough; R06.00 Dyspnea, unspecified; I49.3 Ventricular premature depolarization; E11.9 Type 2 diabetes mellitus without complications; I10 Essential (primary) hypertension; R60.0 Localized edema; E03.9 Hypothyroidism, unspecified; E66.9 Obesity, unspecified; Z87.19 Personal history of other diseases of the digestive system; Z86.73 Personal history of transient ischemic attack (TIA), and cerebral infarction without residual deficits; Z79.82 Long term (current) use of aspirin; Z79.4 Long term (current) use of insulin; Z79.899 Other long term (current) drug therapy
CPT/HCPCS: 70450; 71045; 80048; 82274; 83880; 84484; 85025; 85379; 93005; 96360; 96361; 99285; J7030; A4216

== ENCOUNTER 2017-06-15 05:57 | Emergency (ER) | payer MEDICARE, SELFPAY ==
[2017-06-15 05:58] VITALS: BP 187/73; PULSE 91; RESP 21; TEMP 36.9; O2SAT 92; BMI 50.6
--- NOTE | 2017-06-15 06:11 | EKG12_ITS ---
Test Reason : SOB Blood Pressure : / mmHG Vent. Rate : 092 BPM Atrial Rate : 092 BPM P-R Int : 138 ms QRS Dur : 096 ms QT Int : 394 ms P-R-T Axes : 040 -44 049 degrees QTc Int : 487 ms Normal sinus rhythm Left axis deviation Inferior infarct , age undetermined Abnormal ECG Confirmed by ADOLFO BOBBY, GLORIA ([id number]), editor publications JONNIE SAN ([id number]) on 06/21/2017 2:31:03 PM Referred By: Aki Barnes Confirmed By:GLORIA MATA MD
--- NOTE | 2017-06-15 06:11 | RAD_ITS ---
STUDY: X-RAY CHEST REASON FOR EXAM: Male, 66 years old. Dyspnea TECHNIQUE: Single AP portable view of the chest. COMPARISON: None. FINDINGS: The lungs are clear and expanded. There is no demonstrated pleural abnormality. Normal size heart. Normal mediastinum and maye. There is prominence of the pulmonary hilar arteries without peripheral pulmonary vascular congestion, suggesting pulmonary hypertension. Normal visualized aortic arch and descending thoracic aorta. Normal visualized thoracic spine. Normal visualized ribs, clavicles, and shoulders. There is no demonstrated abnormality of the visualized soft tissue structures of the upper abdomen. RAD/Chest 1 View (Portable) IMPRESSION: There is prominence of the pulmonary hilar arteries without peripheral pulmonary vascular congestion, suggesting pulmonary hypertension. Electronically Signed: Ayesha Andre MD at 7:16 EDT Tel , Service support ,
[2017-06-15] MEDS: Ipratropium/Albuterol Sulfate 3 ML AMPUL.NEB INHALATION (06:19)
[2017-06-15 06:20] VITALS: PULSE 84; RESP 20
--- NOTE | 2017-06-15 06:35 | ED.VISSUMM ---
- ER Visit Summary Date of Service: 06/15/17 Chief Complaint: [] Cough with shortness of breath History of Present Illness: The patient is a 66 M [] with persistent cough and intermittent shortness of breath that has been chronic for approximately 1 year. He was seen in the emergency department yesterday and had a negative workup including CBC, basic metabolic panel, B natruretic peptide, troponin, chest x-ray. Patient also had a negative d-dimer. This is something ongoing for the patient. He went home yesterday and brought him back for persistent symptoms today. He has had a outpatient workup as well throughout this time. They have not figured out the cause. He states he has a mild sore throat and feels weak. Physical Examination: [] Vital signs reviewed General: Well-nourished well-developed Head: Normocephalic atraumatic Eyes: Pupils equal round and reactive to light extraocular movements intact ENT: TMs clear no hemotympanum no trauma Neck: Nontender full range of motion Cardiovascular: Regular rate rhythm no murmurs normal S1-S2 Respiratory: No distress clear to auscultation bilaterally. Occasional faint expiratory wheezes he has occasional sighs. chest nontender Abdomen: Soft nontender nondistended normal bowel sounds no masses Back: Nontender no CVA tenderness Extremities: Nontender active range of motion ?4 extremities no trauma Skin: Normal color no trauma Neuro alert oriented cranial nerves II through XII intact normal strength sensation reflexes Test Results: [] He remains normal sinus rhythm at a rate of 92 without ischemia or arrhythmia. Patient given a breathing treatment as he had occasional faint wheezes. Emergency Department Course and Treatment: [] Chest x-ray shows chronic changes no significant differences from yesterday. Mild increased pulmonary vascular congestion. Component is negative. The patient felt much better after breathing treatment. He will be given albuterol inhaler. At this time I feel he is nontoxic. I feel he can follow-up and will be given a pulmonology referral. Treatment Plan: [] Disposition: [] Impression: [] Chronic cough and dyspnea This note was generated with [employer] dictation software. It may contain incorrect words, spelling, and punctuation that were not noted in review of the chart prior to signing ED Disposition - Plan for ED Patient: Chief Complaint: Shortness of Breath Referrals: Elenita Topete MD [Primary Care Provider] -
--- NOTE | 2017-06-15 06:50 | ED.DEP ---
ED Disposition - Plan for ED Patient: Disposition: Home or Assisted Living Chief Complaint: Shortness of Breath Instructions: ED Dyspnea Shortness of Breath Referrals: Elenita Topete MD [Primary Care Provider] - Maciel Nelson MD [STAFF PHYSICIAN] -
[2017-06-15 07:20] VITALS: PULSE 85; RESP 20
[2017-06-15] MEDS: Albuterol 2.5 MG/3 ML VIAL.NEB. INHALATION (07:20)
[2017-06-15] MEDS: Acetaminophen 500 MG Tablet 1000 MG PO (07:48)
[2017-06-15 08:24] VITALS: BP 150/65; PULSE 89; RESP 26; O2SAT 94
== END 2017-06-15 08:24 | disposition home or self-care (01) ==
PROVIDERS: Emergency Provider Emergency Medicine; Family Provider Internal Medicine; PCP Internal Medicine
DX: R05 Cough (principal); R06.00 Dyspnea, unspecified; J02.9 Acute pharyngitis, unspecified; R53.1 Weakness; R09.89 Other specified symptoms and signs involving the circulatory and respiratory systems; M25.551 Pain in right hip; E66.9 Obesity, unspecified; Z86.73 Personal history of transient ischemic attack (TIA), and cerebral infarction without residual deficits; I10 Essential (primary) hypertension; R60.0 Localized edema; E03.9 Hypothyroidism, unspecified; Z87.19 Personal history of other diseases of the digestive system; Z79.82 Long term (current) use of aspirin; Z79.4 Long term (current) use of insulin; Z79.899 Other long term (current) drug therapy; E11.622 Type 2 diabetes mellitus with other skin ulcer; E11.42 Type 2 diabetes mellitus with diabetic polyneuropathy; I87.2 Venous insufficiency (chronic) (peripheral); L97.812 Non-pressure chronic ulcer of other part of right lower leg with fat layer exposed; E11.65 Type 2 diabetes mellitus with hyperglycemia
CPT/HCPCS: 11042; 71045; 84484; 93005; 94640; 99213; 99283; G0463

== ENCOUNTER 2017-06-22 15:15 | Outpatient (RCR) | payer MEDICARE, SELFPAY ==
[2017-06-13 00:44] VITALS: BP 168/69; PULSE 76; RESP 22; TEMP 35; BMI 47.9
[2017-06-15 16:27] VITALS: BP 157/83; PULSE 89; RESP 16; TEMP 36.6; BMI 47.9
--- NOTE | 2017-06-15 17:16 | PCM.WC.PN ---
(1) Non-pressure chronic ulcer of other part of right lower leg with fat layer exposed Status: Acute Current Visit: Yes Code(s): L97.812 - Non-pressure chronic ulcer of other part of right lower leg with fat layer exposed (2) Type 2 diabetes mellitus with peripheral neuropathy Status: Chronic Current Visit: Yes Code(s): E11.42 - Type 2 diabetes mellitus with diabetic polyneuropathy (3) Venous insufficiency (chronic) (peripheral) Status: Chronic Current Visit: Yes Code(s): I87.2 - Venous insufficiency (chronic) (peripheral) (4) Edema of both legs Status: Chronic Current Visit: Yes Code(s): R60.0 - Localized edema Type of Wound Date of Service: 06/15/17 Chief Complaint: R lewis ulcer History of Wound: This 66-year-old diabetic man presents to the wound center today for recurrence of R lewis ulcer. He is accompanied by his and they report that he has been compliant with tubigrip compression but has had itching and developed these open areas after scratching in the middle of the night. His has been applying aquacel ag to the wound, notes that he was improved, but re-developed ulcers again due to scratching his lewis in the middle of hte night. She notes a moderate amount of drainage from the wounds on his right leg especially. They have seen vascular surgery and he underwent a procedure on his right leg but they will not do anything to his left leg until there are no wounds. Patient and his both deny any purulence or malodor to the areas and the patient also denies any feelings of nausea, vomiting, fever, chills. 4/3-Ulcers improved with collagen hydrogel and sivercel along with circaids. Denies pus, malodor, warmth, pain. Denies N/V/F/C. Does have a cough, and has been evaluated in the ED and is going to f/u with his PCP. Progress of Wound: R lewis ulcers improved. - Physical Exam Vital Signs Temp Pulse Resp BP 97.9 F 89 16 157/83 H 06/15/17 16:27 06/15/17 16:27 06/15/17 16:27 06/15/17 16:27 General: Alert, Oriented x3, Cooperative, No apparent distress Extremities: Edema Skin: Ulcer/ Wound - R elwis x 2 with no erythema, no pus, no malodor, no warmth, minimal pain. No clinical signs of acute bacterial infection noted. See wound/edema assessment below. Wound Measurements and Assessment WC - Nurse 1 - General Ulcer Measurement Start: 06/15/17 16:27 Freq: Status: Active Protocol: Activity Type Activity Date Activity User E-Sign Co-Sign Detail Recorded Client Recorded Date Recorded By Document 06/15/17 16:27 [id number] 06/15/17 16:40 06/15/17 16:27 Wound Center Nurse 1 [Ulcer Assessment] #11- LT MEDIAL CALF -Combined with other wound No -Current Size (cm) - Length 0 -Current Size (cm) - Width 0 -Current Size (cm) - Depth 0 -Total Square Cm 0 -Epithelialization Large 67-100% -Tunneling No #10- RT LEWIS Superior -Combined with other wound No -Current Size (cm) - Length 6.5 -Current Size (cm) - Width 0.4 -Current Size (cm) - Depth 0.1 -Total Square Cm 2.60 -Photo Taken No -Epithelialization Large 67-100% -Tunneling No -Undermining/Tunneling No -Circular Undermining No -Exudate Amt None Present (0 %) -Wound Margin Flat & Intact -Granulation Amt Large (67-100%) -Granulation Quality Red -Slough/Fibrin Yes -Necrosis Amt Small (1-33%) -Necrotic Tissue Type Adherent Slough -Structure Exposed N/A -Texture (Michelle-wound Skin Appearance) Assessed Localized Edema Scarring -Moisture (Michelle-wound Skin Appearance Assessed ) Dry/Scaly -Color (Michelle-wound Skin Appearance) Assessed -Temperature (Michelle-wound Skin No Abnormality Appearance) (Pt Warm) -Tenderness on Palpation (Michelle-wound No Skin Appearance) -Ulcer Cleansing Rinsed/ Irrigated with Saline -Foul Odor after Cleansing No -Anesthetic Used 4% Lidocaine Solution [Edema Assessment] -Lower Limb Edema Present Yes -Right Calf (cm) 47.0 -Right Ankle (cm) 24.2 -Left Calf (cm) 47.7 -Left Ankle (cm) 24.5 YFN - Nurse 2 - General Ulcer CM Notes Start: 06/15/17 16:27 Freq: Status: Active Protocol: Activity Type Activity Date Activity User E-Sign Co-Sign Detail Recorded Client Recorded Date Recorded By Document 06/15/17 16:58 MW [id number] 06/15/17 17:03 MW 06/15/17 16:58 Wound Center Nurse 2 [Procedure/Treatment] #11 Rt lewis Inferior -Time 17:01 -Correct Patient Yes -Correct Side, Site, Position Yes -Correct Procedure Yes -Procedure Performed Yes -Type of Procedure Debridement -Clinical Debridement Subcutaneous -Post Debridement Size (cm) - Length 0.5 -Post Debridement Size (cm) - Width 0.3 -Post Debridement Size (cm) - Depth 0.1 -Total Square Cm 0.15 -Wound/Ulcer Outcome Not Healed -Ulcer Cleansing Rinsed/ Irrigated with Saline -Foul Odor after Cleansing No -Bioengineered Tissue No -Bleeding Controlled with Pressure -Treatment Response Procedure Tolerated Well #11- LT MEDIAL CALF -Time 16:58 -Correct Patient Yes -Correct Side, Site, Position Yes -Correct Procedure Yes -Procedure Performed No -Post Debridement Size (cm) - Length 0 -Post Debridement Size (cm) - Width 0 -Post Debridement Size (cm) - Depth 0 -Total Square Cm 0 -Wound/Ulcer Outcome Healed- Epithelialized #10- RT LEWIS Superior -Time 17:01 -Correct Patient Yes -Correct Side, Site, Position Yes -Correct Procedure Yes -Procedure Performed Yes -Type of Procedure Debridement -Clinical Debridement Subcutaneous -Post Debridement Size (cm) - Length 1.0 -Post Debridement Size (cm) - Width 0.2 -Post Debridement Size (cm) - Depth 0.1 -Total Square Cm 0.20 -Wound/Ulcer Outcome Not Healed -Ulcer Cleansing Rinsed/ Irrigated with Saline -Foul Odor after Cleansing No -Bioengineered Tissue No -Bleeding Controlled with Pressure -Treatment Response Procedure Tolerated Well [See Physician Procedure note for Specifics] Pain Scale: 0-10 Numeric [Pain] -Is Patient Pain Free? Yes Debridement Note Post-Debridement Measurements/Treatment WC - Nurse 2 - General Ulcer CM Notes Start: 06/15/17 16:27 Freq: Status: Active Protocol: Activity Type Activity Date Activity User E-Sign Co-Sign Detail Recorded Client Recorded Date Recorded By Document 06/15/17 16:58 MW [id number] 06/15/17 17:03 MW 06/15/17 16:58 Wound Center Nurse 2 #11 Rt lewis Inferior -Time 17:01 -Correct Patient Yes -Correct Side, Site, Position Yes -Correct Procedure Yes -Procedure Performed Yes -Type of Procedure Debridement -Clinical Debridement Subcutaneous -Post Debridement Size (cm) - Length 0.5 -Post Debridement Size (cm) - Width 0.3 -Post Debridement Size (cm) - Depth 0.1 -Total Square Cm 0.15 -Wound/Ulcer Outcome Not Healed -Ulcer Cleansing Rinsed/ Irrigated with Saline -Foul Odor after Cleansing No -Bioengineered Tissue No -Bleeding Controlled with Pressure -Treatment Response Procedure Tolerated Well #11- LT MEDIAL CALF -Time 16:58 -Correct Patient Yes -Correct Side, Site, Position Yes -Correct Procedure Yes -Procedure Performed No -Post Debridement Size (cm) - Length 0 -Post Debridement Size (cm) - Width 0 -Post Debridement Size (cm) - Depth 0 -Total Square Cm 0 -Wound/Ulcer Outcome Healed- Epithelialized #10- RT LEWIS Superior -Time 17:01 -Correct Patient Yes -Correct Side, Site, Position Yes -Correct Procedure Yes -Procedure Performed Yes -Type of Procedure Debridement -Clinical Debridement Subcutaneous -Post Debridement Size (cm) - Length 1.0 -Post Debridement Size (cm) - Width 0.2 -Post Debridement Size (cm) - Depth 0.1 -Total Square Cm 0.20 -Wound/Ulcer Outcome Not Healed -Ulcer Cleansing Rinsed/ Irrigated with Saline -Foul Odor after Cleansing No -Bioengineered Tissue No -Bleeding Controlled with Pressure -Treatment Response Procedure Tolerated Well Pain Scale: 0-10 Numeric Is Patient Pain Free? Yes Wound debrided: R lewis x 2 Laterality: Right Wound Grade/Stage: full thickness VLUs Type of Debridement: Excisional debridement Anesthesia Used: 4% Lidocaine Solution Depth: Down to and including healthy tissue, in the subcutaneous layer Percentage of wound debrided: 100 Instrument Used: 3mm curette Tissue Removed: fibrous slough Severity: Fat Layer Exposed Amount of bleeding with debridement: Mild Bleeding Controlled with: Pressure, Compression and gauze Patient tolerated procedure well Assessment/Plan Active Problems Non-pressure chronic ulcer of other part of right lower leg with fat layer exposed (Acute) Venous insufficiency (chronic) (peripheral) (Chronic) Type 2 diabetes mellitus with peripheral neuropathy (Chronic) Edema of both legs (Chronic) Assessment: Peripheral vascular occlusive disease. Edema bilateral lower legs. Bilateral venous lower leg ulcers. Diabetes uncontrolled Plan: SQ/excisional debridement R lewis ulcers as above. Cont collagen hydrogel, silvercell to the right lewis ulcer. Add adaptic between to reduce sticking to the wound. No other open wounds on the lower extremities. Cont 20-30 mmHg juxta-lite circ-aids. Ulcer does not require offloading due to location, but do not cross legs. Monitor for redness, pus, malodor, warmth, pain, inc swelling as well as N/V/F/C and go to the ED with these. Will have him f/u in 1 week. Call with questions. Discussed importance of tight blood sugar control, adequate nutrition especially increased protein intake to promote healing. Discussed importance of leg elevation, avoiding idle sitting or standing, using the compression wraps--apply in AM, remove before sleep, increased activity, weight management, and taking anti-inflammatories for pain as tolerated/needed.
--- NOTE | 2017-06-15 17:19 | PN.PCM_ITS ---
(1) Non-pressure chronic ulcer of other part of right lower leg with fat layer exposed Status: Acute Current Visit: Yes Code(s): L97.812 - Non-pressure chronic ulcer of other part of right lower leg with fat layer exposed (2) Type 2 diabetes mellitus with peripheral neuropathy Status: Chronic Current Visit: Yes Code(s): E11.42 - Type 2 diabetes mellitus with diabetic polyneuropathy (3) Venous insufficiency (chronic) (peripheral) Status: Chronic Current Visit: Yes Code(s): I87.2 - Venous insufficiency ( chronic) (peripheral) (4) Edema of both legs Status: Chronic Current Visit: Yes Code(s): R60.0 - Localized edema Type of Wound Date of Service: 06/15/17 Chief Complaint: R lewis ulcer History of Wound: This 66-year-old diabetic man presents to the wound center today for recurrence of R lewis ulcer. He is accompanied by his and they report that he has been compliant with tubigrip compression but has had itching and developed these open areas after scratching in the middle of the night. His has been applying aquacel ag to the wound, notes that he was improved, but re-developed ulcers again due to scratching his lewis in the middle of hte night. She notes a moderate amount of drainage from the wounds on his right leg especially. They have seen vascular surgery and he underwent a procedure on his right leg but they will not do anything to his left leg until there are no wounds. Patient and his both deny any purulence or malodor to the areas and the patient also denies any feelings of nausea, vomiting, fever, chills. 4/ 3-Ulcers improved with collagen hydrogel and sivercel along with circaids. Denies pus, malodor, warmth, pain. Denies N/V/F/C. Does have a cough, and has been evaluated in the ED and is going to f/u with his PCP. Progress of Wound: R lewis ulcers improved. - Physical Exam Vital Signs Temp Pulse Resp BP 97.9 F 89 16 157/83 H 06/15/17 16:27 06/15/17 16:27 06/15/17 16:27 06/15/17 16:27 General: Alert, Oriented x3, Cooperative, No apparent distress Extremities: Edema Skin: Ulcer/ Wound - R lewis x 2 with no erythema, no pus, no malodor, no warmth , minimal pain. No clinical signs of acute bacterial infection noted. See wound/edema assessment below. Wound Measurements and Assessment WC - Nurse 1 - General Ulcer Measurement Start: 06/15/17 16:27 Freq: Status: Active Protocol: Activity Type Activity Date Activity User E-Sign Co-Sign Detail Recorded Client Recorded Date Recorded By Document 06/15/17 16:27 [id number] 06/15/17 16:40 06/15/17 16:27 Wound Center Nurse 1 [Ulcer Assessment] #11- LT MEDIAL CALF -Combined with other wound No -Current Size (cm) - Length 0 -Current Size (cm) - Width 0 -Current Size (cm) - Depth 0 -Total Square Cm 0 -Epithelialization Large 67-100% -Tunneling No #10- RT LEWIS Superior -Combined with other wound No -Current Size (cm) - Length 6.5 -Current Size (cm) - Width 0.4 -Current Size (cm) - Depth 0.1 -Total Square Cm 2.60 -Photo Taken No -Epithelialization Large 67-100% -Tunneling No -Undermining/Tunneling No -Circular Undermining No -Exudate Amt None Present (0 %) -Wound Margin Flat & Intact -Granulation Amt Large (67-100%) -Granulation Quality Red -Slough/Fibrin Yes -Necrosis Amt Small (1-33%) -Necrotic Tissue Type Adherent Slough -Structure Exposed N/A -Texture (Michelle-wound Skin Appearance) Assessed Localized Edema Scarring -Moisture (Michelle-wound Skin Appearance Assessed ) Dry/Scaly -Color (Michelle-wound Skin Appearance) Assessed -Temperature (Michelle-wound Skin No Abnormality Appearance) (Pt Warm) -Tenderness on Palpation (Michelle-wound No Skin Appearance) -Ulcer Cleansing Rinsed/ Irrigated with Saline -Foul Odor after Cleansing No -Anesthetic Used 4% Lidocaine Solution [Edema Assessment] -Lower Limb Edema Present Yes -Right Calf (cm) 47.0 -Right Ankle (cm) 24.2 -Left Calf (cm) 47.7 -Left Ankle (cm) 24.5 YFN - Nurse 2 - General Ulcer CM Notes Start: 06/15/17 16:27 Freq: Status: Active Protocol: Activity Type Activity Date Activity User E-Sign Co-Sign Detail Recorded Client Recorded Date Recorded By Document 06/15/17 16:58 MW [id number] 06/15/17 17:03 MW 06/15/17 16:58 Wound Center Nurse 2 [Procedure/Treatment] #11 Rt lewis Inferior -Time 17:01 -Correct Patient Yes -Correct Side, Site, Position Yes -Correct Procedure Yes -Procedure Performed Yes -Type of Procedure Debridement -Clinical Debridement Subcutaneous -Post Debridement Size (cm) - Length 0.5 -Post Debridement Size (cm) - Width 0.3 -Post Debridement Size (cm) - Depth 0.1 -Total Square Cm 0.15 -Wound/Ulcer Outcome Not Healed -Ulcer Cleansing Rinsed/ Irrigated with Saline -Foul Odor after Cleansing No -Bioengineered Tissue No -Bleeding Controlled with Pressure -Treatment Response Procedure Tolerated Well #11- LT MEDIAL CALF -Time 16:58 -Correct Patient Yes -Correct Side, Site, Position Yes -Correct Procedure Yes -Procedure Performed No -Post Debridement Size (cm) - Length 0 -Post Debridement Size (cm) - Width 0 -Post Debridement Size (cm) - Depth 0 -Total Square Cm 0 -Wound/Ulcer Outcome Healed- Epithelialized #10- RT LEWIS Superior -Time 17:01 -Correct Patient Yes -Correct Side, Site, Position Yes -Correct Procedure Yes -Procedure Performed Yes -Type of Procedure Debridement -Clinical Debridement Subcutaneous -Post Debridement Size (cm) - Length 1.0 -Post Debridement Size (cm) - Width 0.2 -Post Debridement Size (cm) - Depth 0.1 -Total Square Cm 0.20 -Wound/Ulcer Outcome Not Healed -Ulcer Cleansing Rinsed/ Irrigated with Saline -Foul Odor after Cleansing No -Bioengineered Tissue No -Bleeding Controlled with Pressure -Treatment Response Procedure Tolerated Well [See Physician Procedure note for Specifics] Pain Scale: 0-10 Numeric [Pain] -Is Patient Pain Free? Yes Debridement Note Post-Debridement Measurements/Treatment WC - Nurse 2 - General Ulcer CM Notes Start: 06/15/17 16:27 Freq: Status: Active Protocol: Activity Type Activity Date Activity User E-Sign Co-Sign Detail Recorded Client Recorded Date Recorded By Document 06/15/17 16:58 MW [id number] 06/15/17 17:03 MW 06/15/17 16:58 Wound Center Nurse 2 #11 Rt lewis Inferior -Time 17:01 -Correct Patient Yes -Correct Side, Site, Position Yes -Correct Procedure Yes -Procedure Performed Yes -Type of Procedure Debridement -Clinical Debridement Subcutaneous -Post Debridement Size (cm) - Length 0.5 -Post Debridement Size (cm) - Width 0.3 -Post Debridement Size (cm) - Depth 0.1 -Total Square Cm 0.15 -Wound/Ulcer Outcome Not Healed -Ulcer Cleansing Rinsed/ Irrigated with Saline -Foul Odor after Cleansing No -Bioengineered Tissue No -Bleeding Controlled with Pressure -Treatment Response Procedure Tolerated Well #11- LT MEDIAL CALF -Time 16:58 -Correct Patient Yes -Correct Side, Site, Position Yes -Correct Procedure Yes -Procedure Performed No -Post Debridement Size (cm) - Length 0 -Post Debridement Size (cm) - Width 0 -Post Debridement Size (cm) - Depth 0 -Total Square Cm 0 -Wound/Ulcer Outcome Healed- Epithelialized #10- RT LEWIS Superior -Time 17:01 -Correct Patient Yes -Correct Side, Site, Position Yes -Correct Procedure Yes -Procedure Performed Yes -Type of Procedure Debridement -Clinical Debridement Subcutaneous -Post Debridement Size (cm) - Length 1.0 -Post Debridement Size (cm) - Width 0.2 -Post Debridement Size (cm) - Depth 0.1 -Total Square Cm 0.20 -Wound/Ulcer Outcome Not Healed -Ulcer Cleansing Rinsed/ Irrigated with Saline -Foul Odor after Cleansing No -Bioengineered Tissue No -Bleeding Controlled with Pressure -Treatment Response Procedure Tolerated Well Pain Scale: 0-10 Numeric Is Patient Pain Free? Yes Wound debrided: R lewis x 2 Laterality: Right Wound Grade/Stage: full thickness VLUs Type of Debridement: Excisional debridement Anesthesia Used: 4% Lidocaine Solution Depth: Down to and including healthy tissue, in the subcutaneous layer Percentage of wound debrided: 100 Instrument Used: 3mm curette Tissue Removed: fibrous slough Severity: Fat Layer Exposed Amount of bleeding with debridement: Mild Bleeding Controlled with: Pressure, Compression and gauze Patient tolerated procedure well Assessment/Plan Active Problems Non-pressure chronic ulcer of other part of right lower leg with fat layer exposed (Acute) Venous insufficiency (chronic) (peripheral) (Chronic) Type 2 diabetes mellitus with peripheral neuropathy (Chronic) Edema of both legs (Chronic) Assessment: Peripheral vascular occlusive disease. Edema bilateral lower legs. Bilateral venous lower leg ulcers. Diabetes uncontrolled Plan: SQ/excisional debridement R lewis ulcers as above. Cont collagen hydrogel, silvercell to the right lewis ulcer. Add adaptic between to reduce sticking to the wound. No other open wounds on the lower extremities. Cont 20-30 mmHg juxta -lite circ-aids. Ulcer does not require offloading due to location, but do not cross legs. Monitor for redness, pus, malodor, warmth, pain, inc swelling as well as N/V/F/C and go to the ED with these. Will have him f/u in 1 week. Call with questions. Discussed importance of tight blood sugar control, adequate nutrition especially increased protein intake to promote healing. Discussed importance of leg elevation, avoiding idle sitting or standing, using the compression wraps--apply in AM, remove before sleep, increased activity, weight management, and taking anti-inflammatories for pain as tolerated/needed.
[2017-06-22 15:31] VITALS: BP 154/74; PULSE 74; RESP 16; TEMP 35.7; BMI 47.9
--- NOTE | 2017-06-22 15:54 | PCM.WC.PN ---
(1) Non-pressure chronic ulcer of other part of right lower leg with fat layer exposed Status: Resolved Current Visit: Yes Code(s): L97.812 - Non-pressure chronic ulcer of other part of right lower leg with fat layer exposed (2) Type 2 diabetes mellitus with peripheral neuropathy Status: Chronic Current Visit: Yes Code(s): E11.42 - Type 2 diabetes mellitus with diabetic polyneuropathy (3) Venous insufficiency (chronic) (peripheral) Status: Chronic Current Visit: Yes Code(s): I87.2 - Venous insufficiency (chronic) (peripheral) (4) Edema of both legs Status: Chronic Current Visit: Yes Code(s): R60.0 - Localized edema Type of Wound Date of Service: 06/22/17 Chief Complaint: R lewis ulcer History of Wound: This 66-year-old diabetic man presents to the wound center today for recurrence of R lewis ulcer. He is accompanied by his and they report that he has been compliant with tubigrip compression but has had itching and developed these open areas after scratching in the middle of the night. His has been applying aquacel ag to the wound, notes that he was improved, but re-developed ulcers again due to scratching his lewis in the middle of hte night. She notes a moderate amount of drainage from the wounds on his right leg especially. They have seen vascular surgery and he underwent a procedure on his right leg but they will not do anything to his left leg until there are no wounds. Patient and his both deny any purulence or malodor to the areas and the patient also denies any feelings of nausea, vomiting, fever, chills. 06/15-Ulcers improved with collagen hydrogel and sivercel along with circaids. Denies pus, malodor, warmth, pain. Denies N/V/F/C. Does have a cough, and has been evaluated in the ED and is going to f/u with his PCP. 06/22--Ulcers have all healed with collagen hydrogel and sivercel along with circaids. Denies pus, malodor, warmth, pain. Denies N/V/F/C. States he is going to schedule an appointment with Dr. Ho for venous insufficiency. Progress of Wound: R lewis ulcers have healed. - Physical Exam Vital Signs Temp Pulse Resp BP 96.2 F L 74 16 154/74 H 06/22/17 15:31 06/22/17 15:31 06/22/17 15:31 06/22/17 15:31 General: Alert, Oriented x3, Cooperative, No apparent distress Extremities: No Calf Tenderness, Edema Skin: No breakdown, Ulcer/ Wound - Previous ulcerations R lewis covered with epithelial tissue and have healed. Wound Measurements and Assessment WC - Nurse 1 - General Ulcer Measurement Start: 06/15/17 16:27 Freq: Status: Active Protocol: Activity Type Activity Date Activity User E-Sign Co-Sign Detail Recorded Client Recorded Date Recorded By Document 06/22/17 15:31 [id number] 06/22/17 15:35 JF 06/22/17 15:31 Wound Center Nurse 1 [Ulcer Assessment] #12 Rt elwis Inferior -Combined with other wound No -Current Size (cm) - Length 0.1 -Current Size (cm) - Width 0.1 -Current Size (cm) - Depth 0.1 -Total Square Cm 0.01 -Photo Taken No -Epithelialization Large 67-100% -Tunneling No -Undermining/Tunneling No -Circular Undermining No -Exudate Amt None Present (0 %) -Wound Margin Flat & Intact -Granulation Amt None Present (0 %) -Slough/Fibrin Yes -Necrosis Amt Large (67-100%) -Necrotic Tissue Type Adherent Slough -Structure Exposed N/A -Texture (Michelle-wound Skin Appearance) Assessed Localized Edema Scarring -Moisture (Michelle-wound Skin Appearance Assessed ) Dry/Scaly -Color (Michelle-wound Skin Appearance) Not Assessed -Temperature (Michelle-wound Skin No Abnormality Appearance) (Pt Warm) -Ulcer Cleansing Not Cleansed -Foul Odor after Cleansing Yes -Anesthetic Used 4% Lidocaine Solution #10- RT LEWIS Superior -Combined with other wound No -Current Size (cm) - Length 0.1 -Current Size (cm) - Width 0.1 -Current Size (cm) - Depth 0.1 -Total Square Cm 0.01 -Photo Taken No -Epithelialization Large 67-100% -Tunneling No -Undermining/Tunneling No -Circular Undermining No -Exudate Amt None Present (0 %) -Wound Margin Flat & Intact -Granulation Amt None Present (0 %) -Slough/Fibrin Yes -Necrosis Amt Large (67-100%) -Necrotic Tissue Type Adherent Slough -Structure Exposed N/A -Texture (Michelle-wound Skin Appearance) Assessed Localized Edema -Moisture (Michelle-wound Skin Appearance Assessed ) Dry/Scaly -Color (Michelle-wound Skin Appearance) Assessed -Temperature (Michelle-wound Skin No Abnormality Appearance) (Pt Warm) -Tenderness on Palpation (Michelle-wound No Skin Appearance) -Ulcer Cleansing Rinsed/ Irrigated with Saline -Foul Odor after Cleansing No -Anesthetic Used 4% Lidocaine Solution [Edema Assessment] -Lower Limb Edema Present Yes -Right Calf (cm) 46.2 -Right Ankle (cm) 25.2 WC - Nurse 2 - General Ulcer CM Notes Start: 06/15/17 16:27 Freq: Status: Active Protocol: Activity Type Activity Date Activity User E-Sign Co-Sign Detail Recorded Client Recorded Date Recorded By Document 06/22/17 15:49 MW [id number] 06/22/17 15:51 MW 06/22/17 15:49 Wound Center Nurse 2 [Procedure/Treatment] #12 Rt lewis Inferior -Time 15:49 -Correct Patient Yes -Correct Side, Site, Position Yes -Correct Procedure Yes -Procedure Performed No -Post Debridement Size (cm) - Length 0 -Post Debridement Size (cm) - Width 0 -Post Debridement Size (cm) - Depth 0 -Total Square Cm 0 -Wound/Ulcer Outcome Healed- Epithelialized -Ulcer Cleansing Not Cleansed -Foul Odor after Cleansing No -Bioengineered Tissue No -Bleeding Controlled with NA -Treatment Response Procedure Tolerated Well #10- RT LEWIS Superior -Time 15:50 -Correct Patient Yes -Correct Side, Site, Position Yes -Correct Procedure Yes -Procedure Performed No -Post Debridement Size (cm) - Length 0 -Post Debridement Size (cm) - Width 0 -Post Debridement Size (cm) - Depth 0 -Total Square Cm 0 -Wound/Ulcer Outcome Healed- Epithelialized -Ulcer Cleansing Not Cleansed -Foul Odor after Cleansing No -Bioengineered Tissue No -Bleeding Controlled with NA -Treatment Response Procedure Tolerated Well [See Physician Procedure note for Specifics] Debridement Note Post-Debridement Measurements/Treatment WC - Nurse 2 - General Ulcer CM Notes Start: 06/15/17 16:27 Freq: Status: Active Protocol: Activity Type Activity Date Activity User E-Sign Co-Sign Detail Recorded Client Recorded Date Recorded By Document 06/15/17 16:58 MW [id number] 06/15/17 17:03 MW Document 06/22/17 15:49 MW [id number] 06/22/17 15:51 MW 06/15/17 06/22/17 16:58 15:49 Wound Center Nurse 2 #12 Rt lewis Inferior -Time 17:01 15:49 -Correct Patient Yes Yes -Correct Side, Site, Position Yes Yes -Correct Procedure Yes Yes -Procedure Performed Yes No -Type of Procedure Debridement -Clinical Debridement Subcutaneous -Post Debridement Size (cm) - Length 0.5 0 -Post Debridement Size (cm) - Width 0.3 0 -Post Debridement Size (cm) - Depth 0.1 0 -Total Square Cm 0.15 0 -Wound/Ulcer Outcome Not Healed Healed- Epithelialized -Ulcer Cleansing Rinsed/ Not Cleansed Irrigated with Saline -Foul Odor after Cleansing No No -Bioengineered Tissue No No -Bleeding Controlled with Pressure NA -Treatment Response Procedure Procedure Tolerated Well Tolerated Well #11- LT MEDIAL CALF -Time 16:58 -Correct Patient Yes -Correct Side, Site, Position Yes -Correct Procedure Yes -Procedure Performed No -Post Debridement Size (cm) - Length 0 -Post Debridement Size (cm) - Width 0 -Post Debridement Size (cm) - Depth 0 -Total Square Cm 0 -Wound/Ulcer Outcome Healed- Epithelialized #10- RT LEWIS Superior -Time 17:01 15:50 -Correct Patient Yes Yes -Correct Side, Site, Position Yes Yes -Correct Procedure Yes Yes -Procedure Performed Yes No -Type of Procedure Debridement -Clinical Debridement Subcutaneous -Post Debridement Size (cm) - Length 1.0 0 -Post Debridement Size (cm) - Width 0.2 0 -Post Debridement Size (cm) - Depth 0.1 0 -Total Square Cm 0.20 0 -Wound/Ulcer Outcome Not Healed Healed- Epithelialized -Ulcer Cleansing Rinsed/ Not Cleansed Irrigated with Saline -Foul Odor after Cleansing No No -Bioengineered Tissue No No -Bleeding Controlled with Pressure NA -Treatment Response Procedure Procedure Tolerated Well Tolerated Well Pain Scale: 0-10 Numeric Is Patient Pain Free? Yes No debridement was completed today - All ulcers healed. Assessment/Plan Active Problems Venous insufficiency (chronic) (peripheral) (Chronic) Type 2 diabetes mellitus with peripheral neuropathy (Chronic) Edema of both legs (Chronic) Assessment: Peripheral vascular occlusive disease. Edema bilateral lower legs. Bilateral venous lower leg ulcers. Diabetes uncontrolled Plan: Exam. A total of 25 minutes was spent [id number] with the patient and his and over half of that time was spent on counseling, coordination of care, and discussing his diagnoses. All ulcers have healed. No open wounds on the lower extremities. Cont 20-30 mmHg juxta-lite circ-aids. Monitor for redness, pus, malodor, warmth, pain, inc swelling as well as N/V/F/C and go to the ED with these. Return as needed. Call with questions regarding his healed ulcers. Discussed importance of leg elevation, avoiding idle sitting or standing, using the compression wraps--apply in AM, remove before sleep, increased activity, weight management, and taking anti-inflammatories for pain as tolerated/needed.
--- NOTE | 2017-06-22 15:58 | PN.PCM_ITS ---
(1) Non-pressure chronic ulcer of other part of right lower leg with fat layer exposed Status: Resolved Current Visit: Yes Code(s): L97.812 - Non-pressure chronic ulcer of other part of right lower leg with fat layer exposed (2) Type 2 diabetes mellitus with peripheral neuropathy Status: Chronic Current Visit: Yes Code(s): E11.42 - Type 2 diabetes mellitus with diabetic polyneuropathy (3) Venous insufficiency (chronic) (peripheral) Status: Chronic Current Visit: Yes Code(s): I87.2 - Venous insufficiency ( chronic) (peripheral) (4) Edema of both legs Status: Chronic Current Visit: Yes Code(s): R60.0 - Localized edema Type of Wound Date of Service: 06/22/17 Chief Complaint: R lewis ulcer History of Wound: This 66-year-old diabetic man presents to the wound center today for recurrence of R lewis ulcer. He is accompanied by his and they report that he has been compliant with tubigrip compression but has had itching and developed these open areas after scratching in the middle of the night. His has been applying aquacel ag to the wound, notes that he was improved, but re-developed ulcers again due to scratching his lewis in the middle of hte night. She notes a moderate amount of drainage from the wounds on his right leg especially. They have seen vascular surgery and he underwent a procedure on his right leg but they will not do anything to his left leg until there are no wounds. Patient and his both deny any purulence or malodor to the areas and the patient also denies any feelings of nausea, vomiting, fever, chills. 06/15-Ulcers improved with collagen hydrogel and sivercel along with circaids. Denies pus, malodor, warmth, pain. Denies N/V/F/C. Does have a cough, and has been evaluated in the ED and is going to f/u with his PCP. 06/22--Ulcers have all healed with collagen hydrogel and sivercel along with circaids. Denies pus , malodor, warmth, pain. Denies N/V/F/C. States he is going to schedule an appointment with Dr. Ho for venous insufficiency. Progress of Wound: R lewis ulcers have healed. - Physical Exam Vital Signs Temp Pulse Resp BP 96.2 F L 74 16 154/74 H 06/22/17 15:31 06/22/17 15:31 06/22/17 15:31 06/22/17 15:31 General: Alert, Oriented x3, Cooperative, No apparent distress Extremities: No Calf Tenderness, Edema Skin: No breakdown, Ulcer/ Wound - Previous ulcerations R lewis covered with epithelial tissue and have healed. Wound Measurements and Assessment WC - Nurse 1 - General Ulcer Measurement Start: 06/15/17 16:27 Freq: Status: Active Protocol: Activity Type Activity Date Activity User E-Sign Co-Sign Detail Recorded Client Recorded Date Recorded By Document 06/22/17 15:31 [id number] 06/22/17 15:35 JF 06/22/17 15:31 Wound Center Nurse 1 [Ulcer Assessment] #12 Rt lewis Inferior -Combined with other wound No -Current Size (cm) - Length 0.1 -Current Size (cm) - Width 0.1 -Current Size (cm) - Depth 0.1 -Total Square Cm 0.01 -Photo Taken No -Epithelialization Large 67-100% -Tunneling No -Undermining/Tunneling No -Circular Undermining No -Exudate Amt None Present (0 %) -Wound Margin Flat & Intact -Granulation Amt None Present (0 %) -Slough/Fibrin Yes -Necrosis Amt Large (67-100%) -Necrotic Tissue Type Adherent Slough -Structure Exposed N/A -Texture (Michelle-wound Skin Appearance) Assessed Localized Edema Scarring -Moisture (Michelle-wound Skin Appearance Assessed ) Dry/Scaly -Color (Michelle-wound Skin Appearance) Not Assessed -Temperature (Michelle-wound Skin No Abnormality Appearance) (Pt Warm) -Ulcer Cleansing Not Cleansed -Foul Odor after Cleansing Yes -Anesthetic Used 4% Lidocaine Solution #10- RT LEWIS Superior -Combined with other wound No -Current Size (cm) - Length 0.1 -Current Size (cm) - Width 0.1 -Current Size (cm) - Depth 0.1 -Total Square Cm 0.01 -Photo Taken No -Epithelialization Large 67-100% -Tunneling No -Undermining/Tunneling No -Circular Undermining No -Exudate Amt None Present (0 %) -Wound Margin Flat & Intact -Granulation Amt None Present (0 %) -Slough/Fibrin Yes -Necrosis Amt Large (67-100%) -Necrotic Tissue Type Adherent Slough -Structure Exposed N/A -Texture (Michelle-wound Skin Appearance) Assessed Localized Edema -Moisture (Michelle-wound Skin Appearance Assessed ) Dry/Scaly -Color (Michelle-wound Skin Appearance) Assessed -Temperature (Michelle-wound Skin No Abnormality Appearance) (Pt Warm) -Tenderness on Palpation (Michelle-wound No Skin Appearance) -Ulcer Cleansing Rinsed/ Irrigated with Saline -Foul Odor after Cleansing No -Anesthetic Used 4% Lidocaine Solution [Edema Assessment] -Lower Limb Edema Present Yes -Right Calf (cm) 46.2 -Right Ankle (cm) 25.2 WC - Nurse 2 - General Ulcer CM Notes Start: 06/15/17 16:27 Freq: Status: Active Protocol: Activity Type Activity Date Activity User E-Sign Co-Sign Detail Recorded Client Recorded Date Recorded By Document 06/22/17 15:49 MW [id number] 06/22/17 15:51 MW 06/22/17 15:49 Wound Center Nurse 2 [Procedure/Treatment] #12 Rt lewis Inferior -Time 15:49 -Correct Patient Yes -Correct Side, Site, Position Yes -Correct Procedure Yes -Procedure Performed No -Post Debridement Size (cm) - Length 0 -Post Debridement Size (cm) - Width 0 -Post Debridement Size (cm) - Depth 0 -Total Square Cm 0 -Wound/Ulcer Outcome Healed- Epithelialized -Ulcer Cleansing Not Cleansed -Foul Odor after Cleansing No -Bioengineered Tissue No -Bleeding Controlled with NA -Treatment Response Procedure Tolerated Well #10- RT LEWIS Superior -Time 15:50 -Correct Patient Yes -Correct Side, Site, Position Yes -Correct Procedure Yes -Procedure Performed No -Post Debridement Size (cm) - Length 0 -Post Debridement Size (cm) - Width 0 -Post Debridement Size (cm) - Depth 0 -Total Square Cm 0 -Wound/Ulcer Outcome Healed- Epithelialized -Ulcer Cleansing Not Cleansed -Foul Odor after Cleansing No -Bioengineered Tissue No -Bleeding Controlled with NA -Treatment Response Procedure Tolerated Well [See Physician Procedure note for Specifics] Debridement Note Post-Debridement Measurements/Treatment WC - Nurse 2 - General Ulcer CM Notes Start: 06/15/17 16:27 Freq: Status: Active Protocol: Activity Type Activity Date Activity User E-Sign Co-Sign Detail Recorded Client Recorded Date Recorded By Document 06/15/17 16:58 MW [id number] 06/15/17 17:03 MW Document 06/22/17 15:49 MW [id number] 06/22/17 15:51 MW 06/15/17 06/22/17 16:58 15:49 Wound Center Nurse 2 #12 Rt lewis Inferior -Time 17:01 15:49 -Correct Patient Yes Yes -Correct Side, Site, Position Yes Yes -Correct Procedure Yes Yes -Procedure Performed Yes No -Type of Procedure Debridement -Clinical Debridement Subcutaneous -Post Debridement Size (cm) - Length 0.5 0 -Post Debridement Size (cm) - Width 0.3 0 -Post Debridement Size (cm) - Depth 0.1 0 -Total Square Cm 0.15 0 -Wound/Ulcer Outcome Not Healed Healed- Epithelialized -Ulcer Cleansing Rinsed/ Not Cleansed Irrigated with Saline -Foul Odor after Cleansing No No -Bioengineered Tissue No No -Bleeding Controlled with Pressure NA -Treatment Response Procedure Procedure Tolerated Well Tolerated Well #11- LT MEDIAL CALF -Time 16:58 -Correct Patient Yes -Correct Side, Site, Position Yes -Correct Procedure Yes -Procedure Performed No -Post Debridement Size (cm) - Length 0 -Post Debridement Size (cm) - Width 0 -Post Debridement Size (cm) - Depth 0 -Total Square Cm 0 -Wound/Ulcer Outcome Healed- Epithelialized #10- RT LEWIS Superior -Time 17:01 15:50 -Correct Patient Yes Yes -Correct Side, Site, Position Yes Yes -Correct Procedure Yes Yes -Procedure Performed Yes No -Type of Procedure Debridement -Clinical Debridement Subcutaneous -Post Debridement Size (cm) - Length 1.0 0 -Post Debridement Size (cm) - Width 0.2 0 -Post Debridement Size (cm) - Depth 0.1 0 -Total Square Cm 0.20 0 -Wound/Ulcer Outcome Not Healed Healed- Epithelialized -Ulcer Cleansing Rinsed/ Not Cleansed Irrigated with Saline -Foul Odor after Cleansing No No -Bioengineered Tissue No No -Bleeding Controlled with Pressure NA -Treatment Response Procedure Procedure Tolerated Well Tolerated Well Pain Scale: 0-10 Numeric Is Patient Pain Free? Yes No debridement was completed today - All ulcers healed. Assessment/Plan Active Problems Venous insufficiency (chronic) (peripheral) (Chronic) Type 2 diabetes mellitus with peripheral neuropathy (Chronic) Edema of both legs (Chronic) Assessment: Peripheral vascular occlusive disease. Edema bilateral lower legs. Bilateral venous lower leg ulcers. Diabetes uncontrolled Plan: Exam. A total of 25 minutes was spent [id number] with the patient and his and over half of that time was spent on counseling, coordination of care, and discussing his diagnoses. All ulcers have healed. No open wounds on the lower extremities. Cont 20-30 mmHg juxta-lite circ-aids. Monitor for redness, pus, malodor, warmth, pain, inc swelling as well as N/V/F/C and go to the ED with these. Return as needed. Call with questions regarding his healed ulcers. Discussed importance of leg elevation, avoiding idle sitting or standing, using the compression wraps--apply in AM, remove before sleep, increased activity, weight management, and taking anti-inflammatories for pain as tolerated/needed.
== END 2017-07-12 23:59 ==
LOC: WC 15:15
PROVIDERS: Family Provider Internal Medicine; PCP Internal Medicine; Visit Provider Podiatrist Foot & Ankle Surgery
DX: E11.622 Type 2 diabetes mellitus with other skin ulcer (principal); E11.42 Type 2 diabetes mellitus with diabetic polyneuropathy; I87.2 Venous insufficiency (chronic) (peripheral); R60.0 Localized edema; L97.812 Non-pressure chronic ulcer of other part of right lower leg with fat layer exposed; E11.65 Type 2 diabetes mellitus with hyperglycemia
CPT/HCPCS: 11042; 99213; G0463

== ENCOUNTER → 2017-07-15 16:44 | Outpatient (CLI) | payer MEDICARE, SELFPAY ==
[2017-07-15 17:48] LABS: Absolute Lymphocyte Count 1.35 X10^3/ul (0.83-4.51); Absolute Neutrophil Count 3.8 X10^3/uL (2.0-7.7); Basophil# 0.02 X10^3/uL; Basophil% 0.3 % (0-1); Eosinophil# 0.44 X10^3/uL; Hematocrit 39.4 % (40-54); Lymphocyte # 1.35 X10^3/ul (4.0); Lymphocyte % 21.4 % (19-41); Mean Platelet Vol. 11.1 fl (6.2-12.0); Monocyte# 0.68 X10^3/uL; Monocyte% 10.8 % (0-10); Neutrophil # 3.82 X10^3/uL (2.7-7.7); Neutrophil % 60.3 % (47-70); Platelet Count 241 K/mm3 (150-450); RBC Distribution Width CV 14.2 % (11.6-14.6); RBC Distribution Width SD 46.5 fl (35.1-43.9); Red Blood Count 4.33 M/mm3 (4.6-6.2); White Blood Count 6.3 K/mm3 (4.4-11.0)
[2017-07-15 17:57] LABS: POSITIVE COUNT NO; POSITIVE DIFFERENTIAL NO; POSITIVE MORPHOLOGY NO
[2017-07-15 18:25] LABS: ALB/GLOB Ratio 0.7 RATIO (0.9-2.4); AST(SGOT) 24 U/L (15-37); Alanine Aminotransfer ALT/SGPT 37 U/L (16-61); Albumin, Serum 2.9 g/dL (3.2-5.0); Alkaline Phosphatase 93 U/L (45-117); Anion Gap 5 (5-15); BUN 21 mg/dL (7-18); BUN/Creat Ratio 22.9 RATIO (10-20); Calcium,Total 8.5 mg/dL (8.5-10.1); Chloride 108 mmol/L (98-107); Creatinine, Serum 0.92 mg/dL (0.70-1.30); EST Glomerular Filtration Rate 87 mL/min (>60); Est Glom Filt Rate - Afr Amer 105 mL/min (>60); Glucose 142 mg/dL (74-106); PSA,Total - Annual Screen 0.51 ng/mL (0.00-4.00); Potassium 4.2 mmol/L (3.5-5.1); Protein, Total 6.9 g/dL (6.4-8.2); Sodium Level 141 mmol/L (136-145); Thyroid Stim Hormone (TSH) 2.98 uIU/mL (0.358-3.74)
[2017-07-16 08:41] LABS: Vitamin D,25 Hydroxy 9.3 ng/mL (29.95-100.01)
[2017-07-17 11:18] LABS: Hep C Antibodies <0.1 s/co ratio (0.0-0.9)
== END ==
PROVIDERS: Visit Provider Family Medicine Geriatric Medicine
DX: E11.9 Type 2 diabetes mellitus without complications (principal); E55.9 Vitamin D deficiency, unspecified; Z12.5 Encounter for screening for malignant neoplasm of prostate; Z13.89 Encounter for screening for other disorder
CPT/HCPCS: 36415; 80053; 82306; 84153; 84443; 85025; 86803; G0103

== ENCOUNTER 2017-08-07 14:51 | Emergency (ER) | payer MEDICARE, SELFPAY ==
[2017-08-07 14:56] VITALS: BP 158/69; PULSE 75; RESP 20; TEMP 36.3; O2SAT 95; BMI 49.5
--- NOTE | 2017-08-07 15:38 | ED.VISSUMM ---
- ER Visit Summary Date of Service: 08/07/17 Chief Complaint: Wound check History of Present Illness: The patient is a 66 M who presents with a right lewis wound. The patient has a history of vascular disease and chronic wounds on the lower legs. He was following with wound care and all of his wounds had resolved. However 4 days ago he developed another small ulceration on his anterior right lewis with some surrounding erythema. He saw his primary care physician and was started on doxycycline. He has a few tablets left of this but has not clinically improved. The patient went to the urgent care. The provider there that saw the wound thought that it needed debridement and advised them to follow-up with wound care go to the emergency department. The patient has no systemic symptoms. He denies any fevers nausea or vomiting. He denies pain. There is no drainage. Physical Examination: Afebrile vitals are unremarkable No distress resting comfortably Heart regular rate and rhythm Lungs clear Abdomen soft There is a small wound on the anterior mid right lower leg measures 8 x 3 mm with some thin clear drainage there is some surrounding erythema no fluctuance no abscess Test Results: Not indicated Emergency Department Course and Treatment: Patient has a recurrent right lower leg wound. There does appear to be some mild surrounding cellulitis which is not improved with doxycycline. We will have the patient discontinue doxycycline and start Keflex and Bactrim. I advised that they call the wound care center for follow-up as soon as possible. They were instructed on specific signs and symptoms to monitor for and conditions under which to return to the emergency department. They will also continue to follow with their primary care physician. Wound was cleansed and dressed here. Treatment Plan: [] Disposition: Discharge Impression: Leg wound Cellulitis This note was generated with [employer] dictation software. It may contain incorrect words, spelling, and punctuation that were not noted in review of the chart prior to signing ED Disposition - Plan for ED Patient: Chief Complaint: Wound Referrals: Elenita Topete MD [STAFF PHYSICIAN] -
[2017-08-07 15:46] VITALS: BP 178/80; PULSE 66; RESP 18; TEMP 37.1; O2SAT 97
--- NOTE | 2017-08-07 15:49 | ED.DEP ---
ED Disposition - Plan for ED Patient: Chief Complaint: Wound Instructions: ED Infec Skin Cellulitis Prescriptions: Cephalexin [Keflex] 500 mg PO Q6 #40 cap Smz/Tmp Ds [Bactrim Ds] 1 tab PO BID #20 tab Referrals: Yonathan Orosco Chi, MD [Primary Care Provider] - Clinic,Wound [None] -
== END 2017-08-07 16:07 | disposition home or self-care (01) ==
PROVIDERS: Emergency Provider Emergency Medicine; Family Provider Family Medicine Geriatric Medicine; PCP Family Medicine Geriatric Medicine
DX: S81.801A Unspecified open wound, right lower leg, initial encounter (principal); L03.115 Cellulitis of right lower limb; L97.819 Non-pressure chronic ulcer of other part of right lower leg with unspecified severity; X58.XXXA Exposure to other specified factors, initial encounter; Y93.9 Activity, unspecified; Y92.9 Unspecified place or not applicable; K21.9 Gastro-esophageal reflux disease without esophagitis; E11.9 Type 2 diabetes mellitus without complications; I10 Essential (primary) hypertension; E78.00 Pure hypercholesterolemia, unspecified; E03.9 Hypothyroidism, unspecified; Z79.4 Long term (current) use of insulin; Z79.82 Long term (current) use of aspirin; Z79.899 Other long term (current) drug therapy
CPT/HCPCS: 99282

== ENCOUNTER → 2017-08-19 13:04 | Outpatient (CLI) | payer MEDICARE, SELFPAY ==
--- NOTE | 2017-08-19 13:04 | DT_ITS ---
This patient was seen during an EMR downtime August 16, 2017 - August 23, 2017. This patient may have a combination of paper and electronic documentation or all paper documentation. All documentation is viewable within the e-chart portion of [employer] for each patient visit.
--- NOTE | 2017-08-23 11:47 | PFT ---
INTRODUCTION: The patient is a 66-year-old male currently under the care of myself that presents for pulmonary function testing secondary to a diagnosis of dyspnea. Respiratory therapy reports that the patient was unable to keep his mouth seal during DLCO maneuvers. Bronchodilators were used during testing. INTERPRETATION: Forced expiration spirometry demonstrates no evidence of a large airways obstructive ventilatory defect. There was no significant response to aerosolized bronchodilators. Spirograms terminate prior to 6 seconds, likely underestimating FVC. Body plethysmography was performed and reveals lung volumes to be within normal limits. Diffusing capacity by single breath CO is within normal limits at 82% of predicted. IMPRESSION: These pulmonary function studies are essentially within normal limits.
== END ==
PROVIDERS: Family Provider Family Medicine Geriatric Medicine; PCP Family Medicine Geriatric Medicine; Visit Provider Internal Medicine Critical Care Medicine
DX: R06.02 Shortness of breath (principal)
CPT/HCPCS: 94060; 94726; 94729

== ENCOUNTER → 2017-09-02 11:44 | Outpatient (CLI) | payer MEDICARE, SELFPAY ==
[2017-09-02 12:07] VITALS: PULSE 101; PULSE 87; PULSE 90; PULSE 93; PULSE 96; PULSE 97; PULSE 98; O2SAT 95; O2SAT 96; O2SAT 97; O2SAT 98
--- NOTE | 2017-09-02 12:10 | CPS ---
Patient continued to state that he was not short of breath. Patient had increased WOB and stated he was only having trouble due to having bad knees. Patient stated he is always short of breath even when walking for short periods of time.
--- NOTE | 2017-09-02 13:45 | WT_ITS ---
PSN 6 Minute Walk Test - 6 Minute Walk Test 6 Minute Walk Test: 6 Minute Walk Test PSN:6-Minute Walk Test Start: 09/02/17 12: 06 Freq: Status: Active Protocol: [id number].[id number] Document 09/02/17 12:07 SMB (Rec: 09/02/17 12:14 SMB [id number]) 6 Minute Walk Test Date Performed 09/02/17 Time Performed 11:49 Height 5 ft 9 in Weight: 322 lb Weight in Pounds 322.[address]: Satinder Danieslon Assistive device used: None Pre-test Oxygen Delivery Method Room Air Pulse Ox (%) 95 Pulse Rate (60-100 beats/min) 96 Dyspnea Claudia Scale (0-10) 0 Exertion Claudia Scale (6-20) 12 1st minute Oxygen Delivery Method Room Air Pulse Ox (%) 96 Pulse Rate (60-100 beats/min) 90 Reported Symptoms Increased Work of Breathing 2nd minute Oxygen Delivery Method Room Air Pulse Ox (%) 95 Pulse Rate (60-100 beats/min) 93 Reported Symptoms Increased Work of Breathing 3rd minute Oxygen Delivery Method Room Air Pulse Ox (%) 98 Pulse Rate (60-100 beats/min) 101 H Number of Rests Taken 1 Reported Symptoms Increased Work of Breathing 4th minute Oxygen Delivery Method Room Air Pulse Ox (%) 97 Pulse Rate (60-100 beats/min) 97 Number of Rests Taken 1 5th minute Oxygen Delivery Method Room Air Pulse Ox (%) 97 Pulse Rate (60-100 beats/min) 97 Number of Rests Taken 1 Reported Symptoms Increased Work of Breathing 6th minute Oxygen Delivery Method Room Air Pulse Ox (%) 97 Pulse Rate (60-100 beats/min) 98 Reported Symptoms Increased Work of Breathing Post-test Oxygen Delivery Method Room Air Pulse Ox (%) 96 Pulse Rate (60-100 beats/min) 87 Dyspnea Claudia Scale (0-10) 3 Exertion Claudia Scale (6-20) 14 Full Laps Walked 11 Partial Lap, Number of Tiles Walked 27 Total Distance Walked (ft) 676 09/02/17 12:10 Cardiopulmonary Services by Jada Andres Patient continued to state that he was not short of breath. Patient had increased WOB and stated he was only having trouble due to having bad knees. Patient stated he is always short of breath even when walking for short periods of time. Initialized on 09/02/17 12:10 - END OF NOTE - Interpretation Interpretation: The patient ambulated 676 feet over the course of 6 minutes beginning on room air without assistive devices or breaks. Pretesting oxygen saturation was noted to be 95% on room air. With ambulation, the nitza oxygen saturation was 95%. Although there was evidence of impaired walk distance, there was no significant exertional oxygen desaturation. - Recommendations Recommendations: There is no indication for the use of supplemental oxygen at this time.
== END ==
LOC: PSN 11:45
PROVIDERS: Family Provider Family Medicine Geriatric Medicine; PCP Internal Medicine; Visit Provider Internal Medicine Critical Care Medicine
DX: R06.02 Shortness of breath (principal)
CPT/HCPCS: 94618

== ENCOUNTER 2017-09-09 15:00 | Outpatient (RCR) | payer MEDICARE, SELFPAY | END 2017-09-09 23:59 | LOC: DC 15:00 | PROVIDERS: Family Provider Family Medicine Geriatric Medicine; PCP Internal Medicine; Visit Provider Internal Medicine | DX: E11.9 Type 2 diabetes mellitus without complications (principal); G30.9 Alzheimer's disease, unspecified; Z71.3 Dietary counseling and surveillance | CPT/HCPCS: 97802; G0108 ==

== ENCOUNTER → 2017-09-21 14:11 | Outpatient (CLI) | payer MEDICARE, SELFPAY ==
--- NOTE | 2017-09-21 09:45 | LES_PTH ---
PATIENT: OPAL SINGH LOC: [facility] U#:[id number] AGE/SX: 74/M ROOM: RE09/21/[address]: Dr. Yonathan Orosco MD : 1950 BED: DIS: SPEC #: [id number] RECD: 09/21/17 17:11 STATUS: JW OCHOA #: [id number] VINCENT: 09/21/17 09:[address]: Yonathan Orosco Chi DEPT: SURGICAL PATHOLOGY RECD BY: Joann Hopson Tissues: A - Skin of upper extremity, NOS B - Skin of upper extremity, NOS Procedures: Surgery Specimen Level III Surgery Specimen Level IV HEADER OPERATION: Not noted PRE-OP DIAGNOSIS: L91.8; L98.9 TISSUE SUBMITTED: A ? Right armpit upper area, B ? Right armpit lower area MICROSCOPIC DIAGNOSIS A. Right armpit, upper area, biopsy: Compound nevus with predominantly intradermal component. B. Right armpit, lower area, biopsy: Fibroepithelial polyp (skin tag). MELY:anuja 09/23/17 MICROSCOPIC DESCRIPTION Slides are reviewed. GROSS DESCRIPTION A - Received in fixative is one container labeled with the patient's name and designated #1. The specimen consists of a piece of qureshi-white to brown skin measuring 1 x 0.3 x 0.2 cm. The specimen is inked and submitted entirely in one cassette. It will be sectioned at the time of embedding. B - Received in fixative is one container labeled with the patient's name and designated #2. The specimen consists of a piece of punch biopsy of qureshi-white skin measuring 0.3 cm in diameter and 0.5 cm in length. The specimen is inked and submitted entirely in one cassette. / MELY:anuja 09/22/17 TC:1 CPT: 25953, 76917
== END ==
PROVIDERS: Family Provider Family Medicine Geriatric Medicine; PCP Family Medicine Geriatric Medicine; Visit Provider Family Medicine Geriatric Medicine
DX: D22.61 Melanocytic nevi of right upper limb, including shoulder (principal); L91.8 Other hypertrophic disorders of the skin
CPT/HCPCS: 88304; 88305

== ENCOUNTER 2017-09-30 10:06 | Outpatient (RCR) | payer MEDICARE, SELFPAY ==
[2017-09-30 10:35] VITALS: BP 153/72; PULSE 80; RESP 16; TEMP 36.6; BMI 44.3
--- NOTE | 2017-09-30 11:33 | PCM.WC.PN ---
(1) Venous insufficiency (chronic) (peripheral) Status: Chronic Current Visit: No Code(s): I87.2 - Venous insufficiency (chronic) (peripheral) (2) Type 2 diabetes mellitus with peripheral neuropathy Status: Chronic Current Visit: No Code(s): E11.42 - Type 2 diabetes mellitus with diabetic polyneuropathy (3) Obesity Status: Chronic Current Visit: No Qualifiers: Code(s): E66.9 - Obesity, unspecified (4) Lower extremity edema Status: Chronic Current Visit: No Code(s): R60.0 - Localized edema Type of Wound Date of Service: 09/30/17 Chief Complaint: R lewis ulcer History of Wound: 66-year-old diabetic male patient presents to office today with for swelling of lower legs and right lower leg venous stasis ulcerations. Patient is a poor historian. Patient's talked most of the visit. When she noticed the areas slightly breaking down and she applied hydrogel and dressed them on her own until she can get into the wound center. She does not notice any remaining ulcers today but still wanted him to be checked out. Progress of Wound: No open ulcers or signs of infection appreciated today. - Physical Exam Vital Signs Temp Pulse Resp BP 97.8 F 80 16 153/72 H 09/30/17 10:35 09/30/17 10:35 09/30/17 10:35 09/30/17 10:35 General: Alert, Oriented x3, Cooperative, No apparent distress Extremities: Capillary Refill Less than 3 Seconds, No Calf Tenderness - Negative Kavon and Cody sign, Diminished Peripheral Pulses - DP and PT pulses nonpalpable due to lower extremity edema, Edema - Bilateral pitting lower extremity edema Skin: Ulcer/ Wound - There are no open ulcers appreciated to either lower extremity at this time. There is hemosiderin deposit skin color changes appreciated to bilateral lower extremities. There are no current signs of acute bacterial infection appreciated to either lower extremity. Wound Measurements and Assessment WC - Nurse 1 - General Ulcer Measurement Start: 09/30/17 10:26 Freq: Status: Active Protocol: Activity Type Activity Date Activity User E-Sign Co-Sign Detail Recorded Client Recorded Date Recorded By Document 09/30/17 10:35 [id number] 09/30/17 10:45 09/30/17 10:35 Wound Center Nurse 1 [Ulcer Assessment] Edema -Photo Taken Yes -Texture (Michelle-wound Skin Appearance) No Abnormality -Moisture (Michelle-wound Skin Appearance No Abnormality ) -Color (Michelle-wound Skin Appearance) Hemosiderin Staining -Temperature (Michelle-wound Skin No Abnormality Appearance) (Pt Warm) [Edema Assessment] -Right Calf (cm) 42.5 -Right Ankle (cm) 25 -Left Calf (cm) 43 -Left Ankle (cm) 25.3 WC - Nurse 2 - General Ulcer CM Notes Start: 09/30/17 10:26 Freq: Status: Active Protocol: Activity Type Activity Date Activity User E-Sign Co-Sign Detail Recorded Client Recorded Date Recorded By Document 09/30/17 11:23 [id number] 09/30/17 11:23 09/30/17 11:23 Wound Center Nurse 2 [Procedure/Treatment] Edema -Correct Patient No -Correct Side, Site, Position No -Correct Procedure No -Procedure Performed No [See Physician Procedure note for Specifics] Pain Scale: 0-10 Numeric [Pain] -Is Patient Pain Free? Yes Musculoskeletal: No Tenderness to Palpation of Joints or Extremities Neurological: - - Epicritic sensation grossly absent to lower extremity bilateral. Psych/Mental Status: Normal Affect, Appropriate Debridement Note Post-Debridement Measurements/Treatment WC - Nurse 2 - General Ulcer CM Notes Start: 09/30/17 10:26 Freq: Status: Active Protocol: Activity Type Activity Date Activity User E-Sign Co-Sign Detail Recorded Client Recorded Date Recorded By Document 09/30/17 11:23 [id number] 09/30/17 11:23 09/30/17 11:23 Wound Center Nurse 2 Edema -Correct Patient No -Correct Side, Site, Position No -Correct Procedure No -Procedure Performed No Pain Scale: 0-10 Numeric Is Patient Pain Free? Yes No debridement was completed today Assessment/Plan Assessment: Edema bilateral lower legs. PVD. Diabetes uncontrolled Plan: This patient was carefully examined and evaluated again today with by his side. Currently there are no open ulcers or any signs of acute bacterial infection appreciated. There is still lower extremity pitting edema appreciated bilaterally. Patient was instructed to continue with his CircAid wraps instead of Tubigrip. Patient already has CircAids, however his says they feel slightly uncomfortable so he does not like to wear them. I stressed the importance of wearing these to both the patient and his today as well as keeping legs elevated at all times while seated. The patient was instructed to never be seated with his legs in a dependent position for any extended period of time. They say that they understand this. They are instructed to continue to follow-up with Dr. Ho as currently scheduled for evaluation of lower extremity. All signs and symptoms of local and systemic infection were discussed with the patient and the patient's and they were instructed to call the clinic or go to the emergency room immediately if any of these are noted in the future. At this time the patient can be discharged from the wound healing center as there are no ulcers to treat. Patient and his were instructed to call the clinic should any ulcers reappear in the future.
--- NOTE | 2017-09-30 11:36 | PN.PCM_ITS ---
(1) Venous insufficiency (chronic) (peripheral) Status: Chronic Current Visit: No Code(s): I87.2 - Venous insufficiency ( chronic) (peripheral) (2) Type 2 diabetes mellitus with peripheral neuropathy Status: Chronic Current Visit: No Code(s): E11.42 - Type 2 diabetes mellitus with diabetic polyneuropathy (3) Obesity Status: Chronic Current Visit: No Qualifiers: Code(s): E66.9 - Obesity, unspecified (4) Lower extremity edema Status: Chronic Current Visit: No Code(s): R60.0 - Localized edema Type of Wound Date of Service: 09/30/17 Chief Complaint: R lewis ulcer History of Wound: 66-year-old diabetic male patient presents to office today with for swelling of lower legs and right lower leg venous stasis ulcerations. Patient is a poor historian. Patient's talked most of the visit. When she noticed the areas slightly breaking down and she applied hydrogel and dressed them on her own until she can get into the wound center. She does not notice any remaining ulcers today but still wanted him to be checked out. Progress of Wound: No open ulcers or signs of infection appreciated today. - Physical Exam Vital Signs Temp Pulse Resp BP 97.8 F 80 16 153/72 H 09/30/17 10:35 09/30/17 10:35 09/30/17 10:35 09/30/17 10:35 General: Alert, Oriented x3, Cooperative, No apparent distress Extremities: Capillary Refill Less than 3 Seconds, No Calf Tenderness - Negative Kavon and Cody sign, Diminished Peripheral Pulses - DP and PT pulses nonpalpable due to lower extremity edema, Edema - Bilateral pitting lower extremity edema Skin: Ulcer/ Wound - There are no open ulcers appreciated to either lower extremity at this time. There is hemosiderin deposit skin color changes appreciated to bilateral lower extremities. There are no current signs of acute bacterial infection appreciated to either lower extremity. Wound Measurements and Assessment WC - Nurse 1 - General Ulcer Measurement Start: 09/30/17 10:26 Freq: Status: Active Protocol: Activity Type Activity Date Activity User E-Sign Co-Sign Detail Recorded Client Recorded Date Recorded By Document 09/30/17 10:35 [id number] 09/30/17 10:45 09/30/17 10:35 Wound Center Nurse 1 [Ulcer Assessment] Edema -Photo Taken Yes -Texture (Michelle-wound Skin Appearance) No Abnormality -Moisture (Michelle-wound Skin Appearance No Abnormality ) -Color (Michelle-wound Skin Appearance) Hemosiderin Staining -Temperature (Michelle-wound Skin No Abnormality Appearance) (Pt Warm) [Edema Assessment] -Right Calf (cm) 42.5 -Right Ankle (cm) 25 -Left Calf (cm) 43 -Left Ankle (cm) 25.3 WC - Nurse 2 - General Ulcer CM Notes Start: 09/30/17 10:26 Freq: Status: Active Protocol: Activity Type Activity Date Activity User E-Sign Co-Sign Detail Recorded Client Recorded Date Recorded By Document 09/30/17 11:23 [id number] 09/30/17 11:23 09/30/17 11:23 Wound Center Nurse 2 [Procedure/Treatment] Edema -Correct Patient No -Correct Side, Site, Position No -Correct Procedure No -Procedure Performed No [See Physician Procedure note for Specifics] Pain Scale: 0-10 Numeric [Pain] -Is Patient Pain Free? Yes Musculoskeletal: No Tenderness to Palpation of Joints or Extremities Neurological: - - Epicritic sensation grossly absent to lower extremity bilateral. Psych/Mental Status: Normal Affect, Appropriate Debridement Note Post-Debridement Measurements/Treatment WC - Nurse 2 - General Ulcer CM Notes Start: 09/30/17 10:26 Freq: Status: Active Protocol: Activity Type Activity Date Activity User E-Sign Co-Sign Detail Recorded Client Recorded Date Recorded By Document 09/30/17 11:23 [id number] 09/30/17 11:23 09/30/17 11:23 Wound Center Nurse 2 Edema -Correct Patient No -Correct Side, Site, Position No -Correct Procedure No -Procedure Performed No Pain Scale: 0-10 Numeric Is Patient Pain Free? Yes No debridement was completed today Assessment/Plan Assessment: Edema bilateral lower legs. PVD. Diabetes uncontrolled Plan: This patient was carefully examined and evaluated again today with by his side. Currently there are no open ulcers or any signs of acute bacterial infection appreciated. There is still lower extremity pitting edema appreciated bilaterally. Patient was instructed to continue with his CircAid wraps instead of Tubigrip. Patient already has CircAids, however his says they feel slightly uncomfortable so he does not like to wear them. I stressed the importance of wearing these to both the patient and his today as well as keeping legs elevated at all times while seated. The patient was instructed to never be seated with his legs in a dependent position for any extended period of time. They say that they understand this. They are instructed to continue to follow-up with Dr. Ho as currently scheduled for evaluation of lower extremity. All signs and symptoms of local and systemic infection were discussed with the patient and the patient's and they were instructed to call the clinic or go to the emergency room immediately if any of these are noted in the future. At this time the patient can be discharged from the wound healing center as there are no ulcers to treat. Patient and his were instructed to call the clinic should any ulcers reappear in the future.
== END 2017-10-12 23:59 ==
LOC: WC 10:06
PROVIDERS: Family Provider Family Medicine Geriatric Medicine; PCP Family Medicine Geriatric Medicine; Visit Provider Podiatrist
DX: E11.42 Type 2 diabetes mellitus with diabetic polyneuropathy (principal); I87.2 Venous insufficiency (chronic) (peripheral); E66.9 Obesity, unspecified; R60.0 Localized edema
CPT/HCPCS: 99212; G0463

== ENCOUNTER 2017-10-15 00:45 | Emergency (ER) | payer MEDICARE, SELFPAY ==
[2017-10-15 00:46] VITALS: BP 202/84; PULSE 73; RESP 30; TEMP 36.4; O2SAT 95; BMI 49.5
--- NOTE | 2017-10-15 01:13 | ED.DCSUM_ITS ---
- ER Visit Summary Date of Service: 10/15/17 Chief Complaint: [] Leg ulcer redness History of Present Illness: The patient is a 66 M with chronic venous stasis ulceration in his right anterior lewis. He has been getting superficial ulcers. It closed up recently and he was able stop wound care but over the last couple days it open back up and has been more red. His is been putting ointment on it. He is finishing Keflex now for his right axilla as he had a biopsy done at that time. No fevers or chills. Physical Examination: [] Vital signs reviewed General: Well-nourished well-developed Head: Normocephalic atraumatic Eyes: Pupils equal round and reactive to light extraocular movements intact ENT: TMs clear no hemotympanum no trauma Neck: Nontender full range of motion Cardiovascular: Regular rate rhythm no murmurs normal S1-S2 Respiratory: No distress clear to auscultation bilaterally chest nontender Abdomen: Soft nontender nondistended normal bowel sounds no masses Back: Nontender no CVA tenderness Extremities: 1 x 0.25 superficial right lewis superficial skin ulcer. It is not deep. He has some chronic venous stasis edema. He has very mild redness surrounding this wound measuring 1 inch. Neuro alert oriented cranial nerves II through XII intact normal strength sensation reflexes Test Results: [] Emergency Department Course and Treatment: [] Patient is nontoxic. I will add doxycycline to his regimen. He cannot take clindamycin or Bactrim as he does not tolerate these. I do not feel he needs admitted. Bacitracin applied and a wound. He will follow-up with wound care as an outpatient. I feel he has a superficial ulcer cellulitis. He has a prescription for doxycycline waiting for him at the pharmacy ready. Treatment Plan: [] Disposition: [] Impression: [] Superficial skin ulceration with secondary cellulitis This note was generated with [employer] dictation software. It may contain incorrect words, spelling, and punctuation that were not noted in review of the chart prior to signing ED Disposition - Plan for ED Patient: Chief Complaint: Wound Check Referrals: Yonathan Orosco Chi, MD [Primary Care Provider] -
--- NOTE | 2017-10-15 01:13 | ED.DEP ---
ED Disposition - Plan for ED Patient: Disposition: Home or Assisted Living Chief Complaint: Wound Check Instructions: ED Ulcer Venous Leg, Cellulitis - Causes,Symptoms,Treating Referrals: Yonathan Orosco Chi, MD [Primary Care Provider] -
[2017-10-15] MEDS: Doxycycline 100 MG CAPSULE PO (01:18)
[2017-10-15 01:19] VITALS: BP 186/75; PULSE 80; RESP 20; O2SAT 97
[2017-10-15 01:41] VITALS: BP 186/75; PULSE 80; RESP 20; O2SAT 97
== END 2017-10-15 01:42 | disposition home or self-care (01) ==
LOC: ED 01:19
PROVIDERS: Emergency Provider Emergency Medicine; Family Provider Family Medicine Geriatric Medicine; PCP Family Medicine Geriatric Medicine
DX: L97.819 Non-pressure chronic ulcer of other part of right lower leg with unspecified severity (principal); L03.115 Cellulitis of right lower limb; I87.2 Venous insufficiency (chronic) (peripheral); E66.9 Obesity, unspecified; E11.9 Type 2 diabetes mellitus without complications; I10 Essential (primary) hypertension; I73.9 Peripheral vascular disease, unspecified; Z86.73 Personal history of transient ischemic attack (TIA), and cerebral infarction without residual deficits; Z79.82 Long term (current) use of aspirin; Z79.4 Long term (current) use of insulin; Z79.899 Other long term (current) drug therapy
CPT/HCPCS: 99283

== ENCOUNTER 2017-11-05 21:50 | Emergency (ER) | payer MEDICARE, SELFPAY ==
[2017-11-05 21:50] VITALS: BP 197/67; PULSE 80; RESP 20; TEMP 36.7; O2SAT 94; BMI 45.2
--- NOTE | 2017-11-05 22:10 | ED.VISSUMM ---
- ER Visit Summary Date of Service: 11/05/17 Chief Complaint: Mechanical fall History of Present Illness: The patient is a 66 M with history of dementia presents to the emergency department after mechanical fall. Patient states he was walking up the stairs. States he lost his balance and fell. He struck his left knee and then struck the top of his head. He denies losing consciousness. He is on no anticoagulants. He denies any headache, blurry vision, double vision. He states he had a difficult time getting up after the fall. Physical Examination: Vital signs reviewed General: Well-nourished, well-developed Head: Normocephalic, abrasion on scalp Eyes: Pupils equal and reactive, extraocular muscles intact Neck, supple, no lymphadenopathy Heart: Regular rate and rhythm Respiratory: No distress, clear bilaterally Abdomen: Soft, nontender, nondistended, no peritoneal signs Back: Nontender Extremities: Abrasion over lower left knee. Extension preserved. Skin: Normal color no rash Neuro: Alert and oriented, no focal or lateralizing deficits Test Results: [] Emergency Department Course and Treatment: The patient presents after mechanical fall. He had a scalp abrasion and knee contusion. Images were obtained of the area which are unremarkable. A long discussion with the . Patient has worsening dementia. She feels like she needs more help at home. I did leave a message for social work to see what kind of options would be available to help him at home. At this time, I do not see a reason for acute admission. The patient's pain is controlled with Tylenol. He will be discharged home. Treatment Plan: [] Disposition: Distal Impression: Mechanical fall 2. Scalp abrasion 3. Left knee abrasion This note was generated with [employer] dictation software. It may contain incorrect words, spelling, and punctuation that were not noted in review of the chart prior to signing ED Disposition - Plan for ED Patient: Chief Complaint: Fall Instructions: ED Mechanical Fall, ED Avulsion Dermal Referrals: Yonathan Orosco Chi, MD [Primary Care Provider] -
[2017-11-05] MEDS: Acetaminophen 500 MG Tablet 1000 MG PO (23:40)
[2017-11-05 23:53] VITALS: BP 172/80; PULSE 72; RESP 18; O2SAT 96
== END 2017-11-05 23:53 | disposition home or self-care (01) ==
LOC: ED 22:01
PROVIDERS: Emergency Provider Emergency Medicine; Family Provider Family Medicine Geriatric Medicine; PCP Family Medicine Geriatric Medicine
DX: S00.03XA Contusion of scalp, initial encounter (principal); S80.212A Abrasion, left knee, initial encounter; R40.2410 Glasgow coma scale score 13-15, unspecified time; W10.9XXA Fall (on) (from) unspecified stairs and steps, initial encounter; Y93.01 Activity, walking, marching and hiking; Y92.9 Unspecified place or not applicable; F03.90 Unspecified dementia, unspecified severity, without behavioral disturbance, psychotic disturbance, mood disturbance, and anxiety; E66.9 Obesity, unspecified; E11.9 Type 2 diabetes mellitus without complications; I10 Essential (primary) hypertension; E78.00 Pure hypercholesterolemia, unspecified; Z79.82 Long term (current) use of aspirin; Z79.4 Long term (current) use of insulin; Z79.899 Other long term (current) drug therapy
CPT/HCPCS: 70450; 73560; 99284; A4216

== ENCOUNTER 2017-11-11 11:45 | Outpatient (RCR) | payer MEDICARE, SELFPAY ==
[2017-10-13 01:29] VITALS: BP 153/72; PULSE 80; RESP 16; TEMP 36.6
[2017-10-28 09:47] VITALS: BP 155/72; PULSE 84; RESP 22; TEMP 35.7; BMI 47.9
--- NOTE | 2017-10-28 10:35 | PCM.WC.PN ---
(1) Non-pressure chronic ulcer of other part of right lower leg with fat layer exposed Status: Resolved Current Visit: No Code(s): L97.812 - Non-pressure chronic ulcer of other part of right lower leg with fat layer exposed (2) Venous insufficiency (chronic) (peripheral) Status: Chronic Current Visit: No Code(s): I87.2 - Venous insufficiency (chronic) (peripheral) (3) Type 2 diabetes mellitus with peripheral neuropathy Status: Chronic Current Visit: No Code(s): E11.42 - Type 2 diabetes mellitus with diabetic polyneuropathy (4) Obesity Status: Chronic Current Visit: No Qualifiers: Code(s): E66.9 - Obesity, unspecified (5) Malnutrition Status: Acute Current Visit: No Code(s): E46 - Unspecified protein-calorie malnutrition (6) Lower extremity edema Status: Chronic Current Visit: No Code(s): R60.0 - Localized edema Type of Wound Date of Service: 10/28/17 Chief Complaint: R lewis ulcer History of Wound: 66-year-old diabetic male patient presents to office today with for swelling of lower legs and right lower leg venous stasis ulceration to right anterior lower leg. Patient is a poor historian. Patient's talked most of the visit. When she noticed the areas slightly breaking down and she applied hydrogel and dressed them on her own until she can get into the wound center. She says the patient scratched the areas open in his sleep. Progress of Wound: Ulcer to right anterior lewis. Patient denies any purlence, surrounding redness, surrounding warmth or any other signs of infection. Patient denies any nausea, vomiting, fever, or chills. - Physical Exam Vital Signs Temp Pulse Resp BP 96.3 F L 84 22 H 155/72 H 10/28/17 09:47 10/28/17 09:47 10/28/17 09:47 10/28/17 09:47 General: Alert, Oriented x3, Cooperative, No apparent distress Extremities: Capillary Refill Less than 3 Seconds, No Calf Tenderness, Diminished Peripheral Pulses, Edema - Bilateral pitting lower extremity edema Skin: Ulcer/ Wound - Ulcer to right anterior lewis with fat layer exposed. Measurements are noted below. Base is a mixture of adherent slough, fibrin, granular tissue, and some slight surrounding hyperkeratotic tissue. There is no extending or surrounding cellulitis, no increase in warmth, no purulence, no probing, no tracking, no undermining appreciated at this time. Wound Measurements and Assessment - Nurse 1 - General Ulcer Measurement Start: 10/28/17 09:45 Freq: Status: Active Protocol: Activity Type Activity Date Activity User E-Sign Co-Sign Detail Recorded Client Recorded Date Recorded By Document 10/28/17 09:47 DL [id number] 10/28/17 09:58 DL 10/28/17 09:47 Wound Center Nurse 1 [Ulcer Assessment] #13 R Lewis Cluster -Current Size (cm) - Length 1.1 -Current Size (cm) - Width 4.6 -Current Size (cm) - Depth 0.2 -Total Square Cm 5.06 -Photo Taken Yes -Tunneling No -Undermining/Tunneling No -Circular Undermining No -Classification - Thickness Partial Thickness -Exudate Amt Small (1-33%) -Exudate Type Serosanguineous -Wound Margin Distinct, Outline Attached -Granulation Amt Large (67-100%) -Granulation Quality [place] Red -Necrosis Amt Small (1-33%) -Necrotic Tissue Type Adherent Slough -Structure Exposed N/A -Texture (Michelle-wound Skin Appearance) Localized Edema Scarring -Moisture (Micehlle-wound Skin Appearance No Abnormality ) -Color (Michelle-wound Skin Appearance) Hemosiderin Staining -Temperature (Michelle-wound Skin No Abnormality Appearance) (Pt Warm) -Ulcer Cleansing Rinsed/ Irrigated with Saline -Foul Odor after Cleansing No -Anesthetic Used 4% Lidocaine Solution [Edema Assessment] -Right Calf (cm) 44.4 -Right Ankle (cm) 26.4 -Left Calf (cm) 45.6 -Left Ankle (cm) 26 - Nurse 2 - General Ulcer CM Notes Start: 10/28/17 09:45 Freq: Status: Active Protocol: Activity Type Activity Date Activity User E-Sign Co-Sign Detail Recorded Client Recorded Date Recorded By Document 10/28/17 10:24 [id number] 10/28/17 10:27 CS 10/28/17 10:24 Wound Center Nurse 2 [Procedure/Treatment] #13 R Lewis Cluster -Time 10:24 -Correct Patient Yes -Correct Side, Site, Position Yes -Correct Procedure Yes -Procedure Performed Yes -Type of Procedure Debridement -Clinical Debridement Subcutaneous -Post Debridement Size (cm) - Length 2.3 -Post Debridement Size (cm) - Width 5.0 -Post Debridement Size (cm) - Depth 0.2 -Total Square Cm 11.50 -Wound/Ulcer Outcome Not Healed -Ulcer Cleansing Not Cleansed -Foul Odor after Cleansing No -Bioengineered Tissue No -Bleeding Controlled with Pressure -Treatment Response Procedure Tolerated Well [See Physician Procedure note for Specifics] Pain Scale: 0-10 Numeric [Pain] -Is Patient Pain Free? Yes Musculoskeletal: Tenderness - With manipulation of ulcer site Neurological: Sensory exam intact to light touch and pain Psych/Mental Status: Normal Affect, Appropriate Debridement Note Post-Debridement Measurements/Treatment WC - Nurse 2 - General Ulcer CM Notes Start: 10/28/17 09:45 Freq: Status: Active Protocol: Activity Type Activity Date Activity User E-Sign Co-Sign Detail Recorded Client Recorded Date Recorded By Document 10/28/17 10:24 [id number] 10/28/17 10:27 10/28/17 10:24 Wound Center Nurse 2 #13 R Lewis Cluster -Time 10:24 -Correct Patient Yes -Correct Side, Site, Position Yes -Correct Procedure Yes -Procedure Performed Yes -Type of Procedure Debridement -Clinical Debridement Subcutaneous -Post Debridement Size (cm) - Length 2.3 -Post Debridement Size (cm) - Width 5.0 -Post Debridement Size (cm) - Depth 0.2 -Total Square Cm 11.50 -Wound/Ulcer Outcome Not Healed -Ulcer Cleansing Not Cleansed -Foul Odor after Cleansing No -Bioengineered Tissue No -Bleeding Controlled with Pressure -Treatment Response Procedure Tolerated Well Pain Scale: 0-10 Numeric Is Patient Pain Free? Yes Wound debrided: Right anterior lewis Laterality: Right Type of Debridement: Excisional debridement Anesthesia Used: 4% Lidocaine Solution Depth: Down to and including healthy tissue, in the subcutaneous layer Percentage of wound debrided: 100 Instrument Used: 3mm curette Tissue Removed: Adherent slough, fibrin, hyperkeratotic tissue Severity: Fat Layer Exposed Amount of bleeding with debridement: Mild Bleeding Controlled with: Pressure Patient tolerated procedure well Assessment/Plan Assessment: Edema bilateral lower legs. PVD. Diabetes uncontrolled Plan: This patient was carefully examined and evaluated again today with by his side. Subcutaneous debridement was performed as noted in the clinical panel. Upon completion of debridement, the ulcer site was carefully cleansed, followed by Ramonita to the ulcer base followed by dry sterile dressing. Patient is to wear her Tubigrip's and Arnold bandages bilateral lower extremities. The importance of keeping compression to these areas was again stressed in great detail to the patient and his again today. Patient and his state that he has not followed back up with Dr. Ho yet. I stressed the importance of wearing these to both the patient and his today as well as keeping legs elevated at all times while seated. The patient was instructed to never be seated with his legs in a dependent position for any extended period of time. They say that they understand this. They are instructed to continue to follow-up with Dr. Ho as currently scheduled for evaluation of lower extremity. All signs and symptoms of local and systemic infection were discussed with the patient and the patient's and they were instructed to call the clinic or go to the emergency room immediately if any of these are noted. All questions were answered to the patient and his 's satisfaction and they will follow-up at the wound healing center in 1 week to check on patient's progress, or sooner if needed.
[2017-11-04 12:01] VITALS: BP 186/79; PULSE 76; RESP 20; TEMP 35.4; BMI 47.9
--- NOTE | 2017-11-04 14:02 | PCM.WC.PN ---
(1) Non-pressure chronic ulcer of other part of right lower leg with fat layer exposed Status: Resolved Current Visit: No Code(s): L97.812 - Non-pressure chronic ulcer of other part of right lower leg with fat layer exposed (2) Venous insufficiency (chronic) (peripheral) Status: Chronic Current Visit: No Code(s): I87.2 - Venous insufficiency (chronic) (peripheral) (3) Type 2 diabetes mellitus with peripheral neuropathy Status: Chronic Current Visit: No Code(s): E11.42 - Type 2 diabetes mellitus with diabetic polyneuropathy (4) Obesity Status: Chronic Current Visit: No Qualifiers: Code(s): E66.9 - Obesity, unspecified (5) Malnutrition Status: Acute Current Visit: No Code(s): E46 - Unspecified protein-calorie malnutrition (6) Lower extremity edema Status: Chronic Current Visit: No Code(s): R60.0 - Localized edema Type of Wound Date of Service: 11/04/17 Chief Complaint: R fox ulcer History of Wound: 66-year-old diabetic male patient presents to office today with for swelling of lower legs and right lower leg venous stasis ulceration to right anterior lower leg. Patient is a poor historian. Patient's talked most of the visit. When she noticed the areas slightly breaking down and she applied hydrogel and dressed them on her own until she can get into the wound center. She says the patient scratched the areas open in his sleep. Progress of Wound: Ulcer to bilateral anterior shins. Stable since last week. Patient denies any purlence, surrounding redness, surrounding warmth or any other signs of infection. Patient denies any nausea, vomiting, fever, or chills. - Physical Exam Vital Signs Temp Pulse Resp BP 95.7 F L 76 20 H 186/79 H 11/04/17 12:01 11/04/17 12:01 11/04/17 12:01 11/04/17 12:01 General: Alert, Oriented x3, Cooperative, No apparent distress Extremities: Capillary Refill Less than 3 Seconds, No Calf Tenderness - Negative Kavon and Cody sign, Diminished Peripheral Pulses, Edema - Bilateral pitting lower extremity edema Skin: Ulcer/ Wound - Ulcers to right and left anterior fox with fat layer exposed. Measurements are noted below. Patient is a mixture of adherent slough, fibrin, granular tissue as well as some slight surrounding hyperkeratotic tissue. There is no surrounding or extending cellulitis. There is no increase in warmth, no purulence, no probing to bone, no tracking, no undermining to either ulcer sites at this time. Wound Measurements and Assessment WC - Nurse 1 - General Ulcer Measurement Start: 10/28/17 09:45 Freq: Status: Active Protocol: Activity Type Activity Date Activity User E-Sign Co-Sign Detail Recorded Client Recorded Date Recorded By Document 11/04/17 12:01 [facility] [id number] 11/04/17 12:16 [facility] 11/04/17 12:01 Wound Center Nurse 1 [Ulcer Assessment] #16- LT FOX -Combined with other wound No -Current Size (cm) - Length 0.9 -Current Size (cm) - Width 0.9 -Current Size (cm) - Depth 0.1 -Total Square Cm 0.81 -Date of Last Picture (Recall this 11/04/17 field) -Photo Taken Yes -Epithelialization None Present -Tunneling No -Undermining/Tunneling No -Circular Undermining No -Exudate Amt Small (1-33%) -Exudate Type Serosanguineous -Wound Margin Distinct, Outline Attached -Granulation Amt Large (67-100%) -Granulation Quality [place] -Slough/Fibrin No -Necrosis Amt None Present (0 %) -Structure Exposed None/Limited to Skin Breakdown -Texture (Michelle-wound Skin Appearance) Scarring -Moisture (Michelle-wound Skin Appearance Dry/Scaly ) -Color (Michelle-wound Skin Appearance) Hemosiderin Staining -Temperature (Michelle-wound Skin No Abnormality Appearance) (Pt Warm) -Tenderness on Palpation (Michelle-wound Yes Skin Appearance) -Ulcer Cleansing Rinsed/ Irrigated with Saline -Foul Odor after Cleansing No -Anesthetic Used 5% Lidocaine Gel #13 R Fox Cluster -Combined with other wound No -Current Size (cm) - Length 9 -Current Size (cm) - Width 4.7 -Current Size (cm) - Depth 0.1 -Total Square Cm 42.3 -Photo Taken No -Epithelialization None Present -Tunneling No -Undermining/Tunneling No -Circular Undermining No -Exudate Amt Small (1-33%) -Exudate Type Serosanguineous -Wound Margin Distinct, Outline Attached -Granulation Amt Medium (34-66%) -Granulation Quality Pale [place] -Slough/Fibrin Yes -Necrosis Amt Small (1-33%) -Necrotic Tissue Type Adherent Slough -Structure Exposed None/Limited to Skin Breakdown -Texture (Michelle-wound Skin Appearance) Scarring -Moisture (Michelle-wound Skin Appearance Dry/Scaly ) -Color (Michelle-wound Skin Appearance) Hemosiderin Staining -Temperature (Michelle-wound Skin No Abnormality Appearance) (Pt Warm) -Tenderness on Palpation (Michelle-wound Yes Skin Appearance) -Ulcer Cleansing Rinsed/ Irrigated with Saline -Foul Odor after Cleansing No -Anesthetic Used 5% Lidocaine Gel [Edema Assessment] -Lower Limb Edema Present Yes -Right Calf (cm) 44.5 -Right Ankle (cm) 26.9 -Left Calf (cm) 44 -Left Ankle (cm) 26.6 WC - Nurse 2 - General Ulcer CM Notes Start: 10/28/17 09:45 Freq: Status: Active Protocol: Activity Type Activity Date Activity User E-Sign Co-Sign Detail Recorded Client Recorded Date Recorded By Document 11/04/17 12:34 [id number] 11/04/17 12:38 11/04/17 12:34 Wound Center Nurse 2 [Procedure/Treatment] #16- LT FOX -Time 12:34 -Correct Patient Yes -Correct Side, Site, Position Yes -Correct Procedure Yes -Procedure Performed Yes -Type of Procedure Debridement -Clinical Debridement Subcutaneous -Post Debridement Size (cm) - Length 0.7 -Post Debridement Size (cm) - Width 0.8 -Post Debridement Size (cm) - Depth 0.2 -Total Square Cm 0.56 -Wound/Ulcer Outcome Not Healed -Ulcer Cleansing Not Cleansed -Foul Odor after Cleansing No -Bioengineered Tissue No -Bleeding Controlled with Pressure -Treatment Response Procedure Tolerated Well #13 R Fox Cluster -Time 12:35 -Correct Patient Yes -Correct Side, Site, Position Yes -Correct Procedure Yes -Procedure Performed Yes -Type of Procedure Debridement -Clinical Debridement Subcutaneous -Post Debridement Size (cm) - Length 9 -Post Debridement Size (cm) - Width 4.3 -Post Debridement Size (cm) - Depth 0.1 -Total Square Cm 38.7 -Wound/Ulcer Outcome Not Healed -Ulcer Cleansing Not Cleansed -Foul Odor after Cleansing No -Bioengineered Tissue No -Bleeding Controlled with NA -Treatment Response Procedure Tolerated Well [See Physician Procedure note for Specifics] Pain Scale: 0-10 Numeric [Pain] -Is Patient Pain Free? Yes Musculoskeletal: Tenderness - With manipulation of ulcer sites Neurological: Sensory exam intact to light touch and pain Psych/Mental Status: Normal Affect, Appropriate Debridement Note Post-Debridement Measurements/Treatment WC - Nurse 2 - General Ulcer CM Notes Start: 10/28/17 09:45 Freq: Status: Active Protocol: Activity Type Activity Date Activity User E-Sign Co-Sign Detail Recorded Client Recorded Date Recorded By Document 10/28/17 10:24 [id number] 10/28/17 10:27 CS Document 11/04/17 12:34 CS [id number] 11/04/17 12:38 CS 10/28/17 11/04/17 10:24 12:34 Wound Center Nurse 2 #16- LT FOX -Time 12:34 -Correct Patient Yes -Correct Side, Site, Position Yes -Correct Procedure Yes -Procedure Performed Yes -Type of Procedure Debridement -Clinical Debridement Subcutaneous -Post Debridement Size (cm) - Length 0.7 -Post Debridement Size (cm) - Width 0.8 -Post Debridement Size (cm) - Depth 0.2 -Total Square Cm 0.56 -Wound/Ulcer Outcome Not Healed -Ulcer Cleansing Not Cleansed -Foul Odor after Cleansing No -Bioengineered Tissue No -Bleeding Controlled with Pressure -Treatment Response Procedure Tolerated Well #13 R Fox Cluster -Time 10:24 12:35 -Correct Patient Yes Yes -Correct Side, Site, Position Yes Yes -Correct Procedure Yes Yes -Procedure Performed Yes Yes -Type of Procedure Debridement Debridement -Clinical Debridement Subcutaneous Subcutaneous -Post Debridement Size (cm) - Length 2.3 9 -Post Debridement Size (cm) - Width 5.0 4.3 -Post Debridement Size (cm) - Depth 0.2 0.1 -Total Square Cm 11.50 38.7 -Wound/Ulcer Outcome Not Healed Not Healed -Ulcer Cleansing Not Cleansed Not Cleansed -Foul Odor after Cleansing No No -Bioengineered Tissue No No -Bleeding Controlled with Pressure NA -Treatment Response Procedure Procedure Tolerated Well Tolerated Well Pain Scale: 0-10 Numeric Is Patient Pain Free? Yes Yes Wound debrided: Right anterior fox Laterality: Right Type of Debridement: Excisional debridement Anesthesia Used: 4% Lidocaine Solution Depth: Down to and including healthy tissue, in the subcutaneous layer Percentage of wound debrided: 100 Instrument Used: 3mm curette Tissue Removed: Adherent slough, fibrin, hyperkeratotic tissue Severity: Fat Layer Exposed Amount of bleeding with debridement: Mild Bleeding Controlled with: Pressure Patient tolerated procedure well - Additional Wound Wound debrided: Left anterior fox Laterality: Left Type of Debridement: Excisional debridement Depth: Down to and including healthy tissue, in the subcutaneous layer Percentage of wound debrided: 100 Instrument Used: 3mm curette Tissue Removed: Adherent slough, fibrin, hyperkeratotic tissue Severity: Fat Layer Exposed Amount of bleeding with debridement: Mild Bleeding Controlled with: Pressure Patient tolerated procedure: Patient tolerated procedure well Assessment/Plan Assessment: Edema bilateral lower legs. PVD. Diabetes uncontrolled Plan: This patient was carefully examined and evaluated again today with by his side. Subcutaneous debridement was performed as noted in the clinical panel to each ulcer site. Upon completion of debridement, the ulcer sites were carefully cleansed, followed by Ramonita to the ulcer base followed by dry sterile dressing. Patient is to wear her Tubigrip's and Arnold bandages bilateral lower extremities. The says he cut the tubigrip and arnold bandages off in the night a couple nights ago and says that the patient does not remember doing this. The importance of keeping compression to these areas was again stressed in great detail to the patient and his again today. I stressed the importance of wearing these to both the patient and his today as well as keeping legs elevated at all times while seated. The patient was instructed to never be seated with his legs in a dependent position for any extended period of time. They say that they understand this. They are instructed to continue to follow-up with Dr. Ho as currently scheduled for evaluation of lower extremity. All signs and symptoms of local and systemic infection were discussed with the patient and the patient's and they were instructed to call the clinic or go to the emergency room immediately if any of these are noted. All questions were answered to the patient and his 's satisfaction and they will follow-up at the wound healing center in 1 week to check on patient's progress, or sooner if needed.
[2017-11-11 12:10] VITALS: BP 165/90; PULSE 84; RESP 18; TEMP 35.8; BMI 47.9
--- NOTE | 2017-11-11 14:23 | PCM.WC.PN ---
(1) Non-pressure chronic ulcer of other part of right lower leg with fat layer exposed Status: Resolved Current Visit: No Code(s): L97.812 - Non-pressure chronic ulcer of other part of right lower leg with fat layer exposed (2) Venous insufficiency (chronic) (peripheral) Status: Chronic Current Visit: No Code(s): I87.2 - Venous insufficiency (chronic) (peripheral) (3) Type 2 diabetes mellitus with peripheral neuropathy Status: Chronic Current Visit: No Code(s): E11.42 - Type 2 diabetes mellitus with diabetic polyneuropathy (4) Obesity Status: Chronic Current Visit: No Qualifiers: Code(s): E66.9 - Obesity, unspecified (5) Malnutrition Status: Acute Current Visit: No Code(s): E46 - Unspecified protein-calorie malnutrition (6) Lower extremity edema Status: Chronic Current Visit: No Code(s): R60.0 - Localized edema Type of Wound Date of Service: 11/11/17 Chief Complaint: R fox ulcer History of Wound: 66-year-old diabetic male patient presents to office today with for swelling of lower legs and right lower leg venous stasis ulceration to right anterior lower leg. Patient is a poor historian. Patient's talked most of the visit. When she noticed the areas slightly breaking down and she applied hydrogel and dressed them on her own until she can get into the wound center. She says the patient scratched the areas open in his sleep. Progress of Wound: Ulcer to right anterior fox. Ulcer to left anterior fox is healed this week. Patient fell last week and was examined in the ER and shown to be well and discharged home. Patient denies any purlence, surrounding redness, surrounding warmth or any other signs of infection. Patient denies any nausea, vomiting, fever, or chills. - Physical Exam Vital Signs Temp Pulse Resp BP 96.5 F L 84 18 165/90 H 11/11/17 12:10 11/11/17 12:10 11/11/17 12:10 11/11/17 12:10 General: Alert, Oriented x3, Cooperative, No apparent distress Extremities: Capillary Refill Less than 3 Seconds, No Calf Tenderness - Negative Kavon and Cody sign, Diminished Peripheral Pulses, Edema - Bilateral pitting lower extremity edema Skin: Ulcer/ Wound - Ulcer to her right anterior fox with fat layer exposed. Measurements noted below. The base is a mixture of adherent slough, fibrin, granular tissue as well as some slight surrounding hyperkeratotic tissue again this week. There is no extending cellulitis, increasing warmth, purulence, probing to bone, tracking, or undermining to the ulcer site. Ulcer to left lower extremity is healed today. Wound Measurements and Assessment WC - Nurse 1 - General Ulcer Measurement Start: 10/28/17 09:45 Freq: Status: Active Protocol: Activity Type Activity Date Activity User E-Sign Co-Sign Detail Recorded Client Recorded Date Recorded By Document 11/11/17 12:10 TM [id number] 11/11/17 12:19 TM 11/11/17 12:10 Wound Center Nurse 1 [Ulcer Assessment] #16- LT FOX -Combined with other wound No -Current Size (cm) - Length 5.5 -Current Size (cm) - Width 3.5 -Current Size (cm) - Depth 0.1 -Total Square Cm 19.25 -Photo Taken No -Epithelialization Large 67-100% -Tunneling No -Undermining/Tunneling No -Circular Undermining No -Classification - Thickness Partial Thickness -Exudate Amt None Present (0 %) -Wound Margin Distinct, Outline Attached -Granulation Amt None Present (0 %) -Granulation Quality N/A -Slough/Fibrin Yes -Necrosis Amt Large (67-100%) -Necrotic Tissue Type Adherent Slough -Structure Exposed Fascia Fat Layer Exposed -Texture (Michelle-wound Skin Appearance) Assessed Localized Edema -Moisture (Michelle-wound Skin Appearance Assessed ) Dry/Scaly -Color (Michelle-wound Skin Appearance) No Abnormality Assessed -Temperature (Michelle-wound Skin No Abnormality Appearance) (Pt Warm) -Tenderness on Palpation (Michelle-wound No Skin Appearance) -Ulcer Cleansing Rinsed/ Irrigated with Saline -Foul Odor after Cleansing No -Anesthetic Used 5% Lidocaine Gel #13 R Fox Cluster -Combined with other wound No -Current Size (cm) - Length 2.4 -Current Size (cm) - Width 1.0 -Current Size (cm) - Depth 0.1 -Total Square Cm 2.40 -Photo Taken No -Epithelialization None Present -Tunneling No -Undermining/Tunneling No -Circular Undermining No -Classification - Thickness Full Thickness without Exposed Support Structure -Exudate Amt Medium (34-66%) -Exudate Type Serosanguineous -Wound Margin Distinct, Outline Attached -Granulation Amt Large (67-100%) -Granulation Quality Red -Slough/Fibrin Yes -Necrosis Amt Small (1-33%) -Necrotic Tissue Type Adherent Slough -Structure Exposed Fascia Fat Layer Exposed -Texture (Michelle-wound Skin Appearance) Assessed Friable Localized Edema Scarring -Moisture (Michelle-wound Skin Appearance No Abnormality ) Assessed -Color (Michelle-wound Skin Appearance) Assessed Erythema Hemosiderin Staining -Ulcer Cleansing Rinsed/ Irrigated with Saline -Foul Odor after Cleansing No -Anesthetic Used 5% Lidocaine Gel [Edema Assessment] -Lower Limb Edema Present Yes -Right Calf (cm) 47.5 -Right Ankle (cm) 27.0 -Left Calf (cm) 47.0 -Left Ankle (cm) 26.0 WC - Nurse 2 - General Ulcer CM Notes Start: 10/28/17 09:45 Freq: Status: Active Protocol: Activity Type Activity Date Activity User E-Sign Co-Sign Detail Recorded Client Recorded Date Recorded By Document 11/11/17 12:54 [id number] 11/11/17 12:55 11/11/17 12:54 Wound Center Nurse 2 [Procedure/Treatment] #16- LT FOX -Time 12:54 -Post Debridement Size (cm) - Length 0 -Post Debridement Size (cm) - Width 0 -Post Debridement Size (cm) - Depth 0 -Total Square Cm 0 -Wound/Ulcer Outcome Healed- Epithelialized #13 R Fox Cluster -Time 12:54 -Correct Patient Yes -Correct Side, Site, Position Yes -Correct Procedure Yes -Procedure Performed Yes -Type of Procedure Debridement -Clinical Debridement Subcutaneous -Post Debridement Size (cm) - Length 10.4 -Post Debridement Size (cm) - Width 5.3 -Post Debridement Size (cm) - Depth 0.1 -Total Square Cm 55.12 -Wound/Ulcer Outcome Not Healed -Ulcer Cleansing Not Cleansed -Foul Odor after Cleansing No -Bioengineered Tissue No -Bleeding Controlled with NA -Treatment Response Procedure Tolerated Well [See Physician Procedure note for Specifics] Pain Scale: 0-10 Numeric [Pain] -Is Patient Pain Free? Yes Musculoskeletal: Tenderness - With manipulation of ulcer site Neurological: Sensory exam intact to light touch and pain Psych/Mental Status: Normal Affect, Appropriate Debridement Note Post-Debridement Measurements/Treatment WC - Nurse 2 - General Ulcer CM Notes Start: 10/28/17 09:45 Freq: Status: Active Protocol: Activity Type Activity Date Activity User E-Sign Co-Sign Detail Recorded Client Recorded Date Recorded By Document 10/28/17 10:24 [id number] 10/28/17 10:27 CS Document 11/04/17 12:34 CS [id number] 11/04/17 12:38 CS Document 11/11/17 12:54 CS [id number] 11/11/17 12:55 CS 10/28/17 11/04/17 11/11/17 10:24 12:34 12:54 Wound Center Nurse 2 #16- LT FOX -Time 12:34 12:54 -Correct Patient Yes -Correct Side, Site, Position Yes -Correct Procedure Yes -Procedure Performed Yes -Type of Procedure Debridement -Clinical Debridement Subcutaneous -Post Debridement Size (cm) - Length 0.7 0 -Post Debridement Size (cm) - Width 0.8 0 -Post Debridement Size (cm) - Depth 0.2 0 -Total Square Cm 0.56 0 -Wound/Ulcer Outcome Not Healed Healed- Epithelialized -Ulcer Cleansing Not Cleansed -Foul Odor after Cleansing No -Bioengineered Tissue No -Bleeding Controlled with Pressure -Treatment Response Procedure Tolerated Well #13 R Fox Cluster -Time 10:24 12:35 12:54 -Correct Patient Yes Yes Yes -Correct Side, Site, Position Yes Yes Yes -Correct Procedure Yes Yes Yes -Procedure Performed Yes Yes Yes -Type of Procedure Debridement Debridement Debridement -Clinical Debridement Subcutaneous Subcutaneous Subcutaneous -Post Debridement Size (cm) - Length 2.3 9 10.4 -Post Debridement Size (cm) - Width 5.0 4.3 5.3 -Post Debridement Size (cm) - Depth 0.2 0.1 0.1 -Total Square Cm 11.50 38.7 55.12 -Wound/Ulcer Outcome Not Healed Not Healed Not Healed -Ulcer Cleansing Not Cleansed Not Cleansed Not Cleansed -Foul Odor after Cleansing No No No -Bioengineered Tissue No No No -Bleeding Controlled with Pressure NA NA -Treatment Response Procedure Procedure Procedure Tolerated Well Tolerated Well Tolerated Well Pain Scale: 0-10 Numeric Is Patient Pain Free? Yes Yes Yes Wound debrided: Right anterior fox Laterality: Right Type of Debridement: Excisional debridement Anesthesia Used: 4% Lidocaine Solution Depth: Down to and including healthy tissue, in the subcutaneous layer Percentage of wound debrided: 100 Instrument Used: 3mm curette Tissue Removed: Adherent slough, fibrin, hyperkeratotic tissue Severity: Fat Layer Exposed Amount of bleeding with debridement: Mild Bleeding Controlled with: Pressure Patient tolerated procedure well Assessment/Plan Assessment: Edema bilateral lower legs. PVD. Diabetes uncontrolled Plan: This patient was carefully examined and evaluated again today with by his side. Subcutaneous debridement was performed as noted in the clinical panel to right anterior fox ulcer. Upon completion of debridement, the ulcer site was carefully cleansed, followed by Aquacel Ag to the ulcer base followed by dry sterile dressing. Patient is to wear her Tubigrip's and Arnold bandages bilateral lower extremities. Dressing supplies prescriptin given to patient. The says he again tried to cut the tubigrip and arnold bandages off in the night a couple nights ago. She says she took them off so he would not cut them again. The importance of keeping compression to these areas was again stressed in great detail to the patient and his again today. I stressed the importance of wearing these to both the patient and his today as well as keeping legs elevated at all times while seated. The patient was instructed to never be seated with his legs in a dependent position for any extended period of time. They say that they understand this. They are instructed to continue to follow-up with Dr. oH as currently scheduled for evaluation of lower extremity. All signs and symptoms of local and systemic infection were discussed with the patient and the patient's and they were instructed to call the clinic or go to the emergency room immediately if any of these are noted. All questions were answered to the patient and his 's satisfaction and they will follow-up at the wound healing center in 1 week to check on patient's progress, or sooner if needed.
== END 2017-11-12 23:59 ==
LOC: WC 11:45
PROVIDERS: Family Provider Family Medicine Geriatric Medicine; PCP Family Medicine Geriatric Medicine; Visit Provider Podiatrist
DX: E11.42 Type 2 diabetes mellitus with diabetic polyneuropathy (principal); I87.2 Venous insufficiency (chronic) (peripheral); R60.0 Localized edema; E11.622 Type 2 diabetes mellitus with other skin ulcer; L97.812 Non-pressure chronic ulcer of other part of right lower leg with fat layer exposed
CPT/HCPCS: 11042; 11045; 99212; G0463

== ENCOUNTER 2017-12-02 11:30 | Outpatient (RCR) | payer MEDICARE, SELFPAY ==
[2017-11-13 01:30] VITALS: BP 165/90; PULSE 84; RESP 18; TEMP 35.8
[2017-11-18 11:57] VITALS: BP 157/80; PULSE 76; RESP 18; TEMP 35.7
--- NOTE | 2017-11-18 13:12 | PCM.WC.PN ---
(1) Non-pressure ulcer of right lower extremity with fat layer exposed Status: Acute Current Visit: No Code(s): L97.912 - Non-pressure chronic ulcer of unspecified part of right lower leg with fat layer exposed (2) Non-pressure ulcer of left lower extremity with fat layer exposed Status: Chronic Current Visit: No Code(s): L97.922 - Non-pressure chronic ulcer of unspecified part of left lower leg with fat layer exposed (3) Venous insufficiency (chronic) (peripheral) Status: Chronic Current Visit: No Code(s): I87.2 - Venous insufficiency (chronic) (peripheral) (4) Type 2 diabetes mellitus with peripheral neuropathy Status: Chronic Current Visit: No Code(s): E11.42 - Type 2 diabetes mellitus with diabetic polyneuropathy (5) Obesity Status: Chronic Current Visit: No Qualifiers: Code(s): E66.9 - Obesity, unspecified (6) Malnutrition Status: Acute Current Visit: No Code(s): E46 - Unspecified protein-calorie malnutrition (7) Lower extremity edema Status: Chronic Current Visit: No Code(s): R60.0 - Localized edema Type of Wound Date of Service: 11/18/17 Chief Complaint: R fox ulcer History of Wound: 66-year-old diabetic male patient presents to office today with for swelling of lower legs and right lower leg venous stasis ulceration to right anterior lower leg. Patient is a poor historian. Patient's talked most of the visit. When she noticed the areas slightly breaking down and she applied hydrogel and dressed them on her own until she can get into the wound center. She says the patient scratched the areas open in his sleep. Progress of Wound: Ulcer to right anterior fox. Ulcer to left anterior fox is healed this week. Patient's says he has done a little better keeping compression to his lower extremities this week. Patient denies any purlence, surrounding redness, surrounding warmth or any other signs of infection. Patient denies any nausea, vomiting, fever, or chills. - Physical Exam Vital Signs Temp Pulse Resp BP 96.2 F L 76 18 157/80 H 11/18/17 11:57 11/18/17 11:57 11/18/17 11:57 11/18/17 11:57 General: Alert, Oriented x3, Cooperative, No apparent distress Extremities: Capillary Refill Less than 3 Seconds, No Calf Tenderness - Negative Kavon and Cody sign, Diminished Peripheral Pulses, Edema - Bilateral pitting lower extremity edema Skin: Ulcer/ Wound - Ulcer to left and right anterior fox with fat layer exposed. Measurements are noted below. The base continues to be a mixture of adherent slough, fibrin, granular tissue as well as some slight surrounding hyperkeratotic tissue. There continues to be no surrounding cellulitis, increasing warmth, purulence, probing to bone, tracking, or undermining noted to either ulcer site. Wound Measurements and Assessment WC - Nurse 1 - General Ulcer Measurement Start: 11/18/17 11:57 Freq: Status: Active Protocol: Activity Type Activity Date Activity User E-Sign Co-Sign Detail Recorded Client Recorded Date Recorded By Document 11/18/17 11:57 RB [id number] 11/18/17 12:01 RB 11/18/17 11:57 Wound Center Nurse 1 [Ulcer Assessment] #16- LT FOX -Combined with other wound No -Current Size (cm) - Length 0.7 -Current Size (cm) - Width 0.9 -Current Size (cm) - Depth 0.1 -Total Square Cm 0.63 -Photo Taken No -Tunneling No -Undermining/Tunneling No -Circular Undermining No -Classification - Thickness Full Thickness without Exposed Support Structure -Exudate Amt Small (1-33%) -Exudate Type Serosanguineous -Wound Margin Distinct, Outline Attached -Granulation Amt Medium (34-66%) -Granulation Quality Red -Slough/Fibrin Yes -Necrosis Amt Small (1-33%) -Necrotic Tissue Type Adherent Slough -Structure Exposed N/A -Texture (Michelle-wound Skin Appearance) Assessed -Moisture (Michelle-wound Skin Appearance Assessed ) -Color (Michelle-wound Skin Appearance) Assessed -Temperature (Michelle-wound Skin No Abnormality Appearance) (Pt Warm) -Tenderness on Palpation (Michelle-wound No Skin Appearance) -Ulcer Cleansing Rinsed/ Irrigated with Saline -Foul Odor after Cleansing No -Anesthetic Used 4% Lidocaine Solution #13 R Fox Cluster -Combined with other wound No -Current Size (cm) - Length 10.5 -Current Size (cm) - Width 9 -Current Size (cm) - Depth 0.1 -Total Square Cm 94.5 -Photo Taken No -Tunneling No -Undermining/Tunneling No -Circular Undermining No -Classification - Thickness Full Thickness without Exposed Support Structure -Exudate Amt Small (1-33%) -Exudate Type Serosanguineous -Wound Margin Distinct, Outline Attached -Granulation Amt Small (1-33%) -Granulation Quality [place] -Slough/Fibrin Yes -Necrosis Amt Large (67-100%) -Necrotic Tissue Type Adherent Slough -Structure Exposed N/A -Texture (Michelle-wound Skin Appearance) Assessed -Moisture (Michelle-wound Skin Appearance Assessed ) -Color (Michelle-wound Skin Appearance) Assessed -Temperature (Michelle-wound Skin No Abnormality Appearance) (Pt Warm) -Tenderness on Palpation (Michelle-wound No Skin Appearance) -Ulcer Cleansing Rinsed/ Irrigated with Saline -Foul Odor after Cleansing No -Anesthetic Used 4% Lidocaine Solution [Edema Assessment] -Lower Limb Edema Present Yes -Right Calf (cm) 45.5 -Right Ankle (cm) 26.5 -Left Calf (cm) 45.6 -Left Ankle (cm) 26.5 WC - Nurse 2 - General Ulcer CM Notes Start: 11/18/17 11:57 Freq: Status: Active Protocol: Activity Type Activity Date Activity User E-Sign Co-Sign Detail Recorded Client Recorded Date Recorded By Document 11/18/17 12:23 MINO [id number] 11/18/17 12:25 MINO 11/18/17 12:23 Wound Center Nurse 2 [Procedure/Treatment] #16- LT FOX -Time 12:24 -Correct Patient Yes -Correct Side, Site, Position Yes -Correct Procedure Yes -Procedure Performed Yes -Type of Procedure Debridement -Clinical Debridement Subcutaneous -Post Debridement Size (cm) - Length 0.8 -Post Debridement Size (cm) - Width 0.8 -Post Debridement Size (cm) - Depth 0.1 -Total Square Cm 0.64 -Wound/Ulcer Outcome Not Healed -Ulcer Cleansing Rinsed/ Irrigated with Saline -Foul Odor after Cleansing No -Bioengineered Tissue No -Topical Lidocaine (%) 4 -Lidocaine (ml) 5 -Bleeding Controlled with NA -Treatment Response Procedure Tolerated Well #13 R Fox Cluster -Time 12:24 -Correct Patient Yes -Correct Side, Site, Position Yes -Correct Procedure Yes -Procedure Performed Yes -Type of Procedure Debridement -Clinical Debridement Subcutaneous -Post Debridement Size (cm) - Length 4.5 -Post Debridement Size (cm) - Width 4.3 -Post Debridement Size (cm) - Depth 0.1 -Total Square Cm 19.35 -Wound/Ulcer Outcome Not Healed -Ulcer Cleansing Rinsed/ Irrigated with Saline -Foul Odor after Cleansing No -Bioengineered Tissue No -Topical Lidocaine (%) 4 -Lidocaine (ml) 5 -Bleeding Controlled with NA -Treatment Response Procedure Tolerated Well [See Physician Procedure note for Specifics] Pain Scale: 0-10 Numeric [Pain] -Is Patient Pain Free? Yes Musculoskeletal: Tenderness - With manipulation of ulcer site Neurological: Sensory exam intact to light touch and pain - No Psych/Mental Status: Normal Affect, Appropriate Debridement Note Post-Debridement Measurements/Treatment WC - Nurse 2 - General Ulcer CM Notes Start: 11/18/17 11:57 Freq: Status: Active Protocol: Activity Type Activity Date Activity User E-Sign Co-Sign Detail Recorded Client Recorded Date Recorded By Document 11/18/17 12:23 [email or web address] [id number] 11/18/17 12:25 MINO 11/18/17 12:23 Wound Center Nurse 2 #16- LT FOX -Time 12:24 -Correct Patient Yes -Correct Side, Site, Position Yes -Correct Procedure Yes -Procedure Performed Yes -Type of Procedure Debridement -Clinical Debridement Subcutaneous -Post Debridement Size (cm) - Length 0.8 -Post Debridement Size (cm) - Width 0.8 -Post Debridement Size (cm) - Depth 0.1 -Total Square Cm 0.64 -Wound/Ulcer Outcome Not Healed -Ulcer Cleansing Rinsed/ Irrigated with Saline -Foul Odor after Cleansing No -Bioengineered Tissue No -Topical Lidocaine (%) 4 -Lidocaine (ml) 5 -Bleeding Controlled with NA -Treatment Response Procedure Tolerated Well #13 R Fox Cluster -Time 12:24 -Correct Patient Yes -Correct Side, Site, Position Yes -Correct Procedure Yes -Procedure Performed Yes -Type of Procedure Debridement -Clinical Debridement Subcutaneous -Post Debridement Size (cm) - Length 4.5 -Post Debridement Size (cm) - Width 4.3 -Post Debridement Size (cm) - Depth 0.1 -Total Square Cm 19.35 -Wound/Ulcer Outcome Not Healed -Ulcer Cleansing Rinsed/ Irrigated with Saline -Foul Odor after Cleansing No -Bioengineered Tissue No -Topical Lidocaine (%) 4 -Lidocaine (ml) 5 -Bleeding Controlled with NA -Treatment Response Procedure Tolerated Well Pain Scale: 0-10 Numeric Is Patient Pain Free? Yes Wound debrided: Right anterior fox Laterality: Right Type of Debridement: Excisional debridement Anesthesia Used: 4% Lidocaine Solution Depth: in the subcutaneous layer Percentage of wound debrided: 100 Instrument Used: 3mm curette Tissue Removed: Adherent slough, fibrin, hyperkeratotic tissue Severity: Fat Layer Exposed Amount of bleeding with debridement: Mild Bleeding Controlled with: Pressure Patient tolerated procedure well Assessment/Plan Assessment: Edema bilateral lower legs. PVD. Diabetes uncontrolled Plan: This patient was carefully examined and evaluated again today with by his side. Subcutaneous debridement was performed as noted in the clinical panel to right and left anterior fox ulcers. Upon completion of debridement, the ulcer sites were carefully cleansed, followed by Aquacel Ag to the ulcer bases followed by dry sterile dressing. Patient is to wear his Tubigrip's and Arnold bandages bilateral lower extremities. The says he did a better job keeping compression to the lower extremities this week. The importance of keeping compression to these areas was again stressed in great detail to the patient and his again today. I stressed the importance of wearing these to both the patient and his today as well as keeping legs elevated at all times while seated. The patient was instructed to never be seated with his legs in a dependent position for any extended period of time. They say that they understand this. They are instructed to continue to follow-up with Dr. Ho as currently scheduled for evaluation of lower extremity. All signs and symptoms of local and systemic infection were discussed with the patient and the patient's and they were instructed to call the clinic or go to the emergency room immediately if any of these are noted. All questions were answered to the patient and his 's satisfaction and they will follow-up at the wound healing center in 1 week to check on patient's progress, or sooner if needed.
[2017-12-02 11:55] VITALS: BP 161/86; PULSE 82; RESP 18; TEMP 36.2
--- NOTE | 2017-12-02 14:28 | PCM.WC.PN ---
(1) Non-pressure ulcer of right lower extremity with fat layer exposed Status: Acute Current Visit: No Code(s): L97.912 - Non-pressure chronic ulcer of unspecified part of right lower leg with fat layer exposed (2) Non-pressure ulcer of left lower extremity with fat layer exposed Status: Chronic Current Visit: No Code(s): L97.922 - Non-pressure chronic ulcer of unspecified part of left lower leg with fat layer exposed (3) Venous insufficiency (chronic) (peripheral) Status: Chronic Current Visit: No Code(s): I87.2 - Venous insufficiency (chronic) (peripheral) (4) Type 2 diabetes mellitus with peripheral neuropathy Status: Chronic Current Visit: No Code(s): E11.42 - Type 2 diabetes mellitus with diabetic polyneuropathy (5) Obesity Status: Chronic Current Visit: No Qualifiers: Code(s): E66.9 - Obesity, unspecified (6) Malnutrition Status: Acute Current Visit: No Code(s): E46 - Unspecified protein-calorie malnutrition (7) Lower extremity edema Status: Chronic Current Visit: No Code(s): R60.0 - Localized edema Type of Wound Date of Service: 12/02/17 Chief Complaint: R fox ulcer History of Wound: 66-year-old diabetic male patient presents to office today with for swelling of lower legs and right lower leg venous stasis ulceration to right anterior lower leg. Patient is a poor historian. Patient's talked most of the visit. When she noticed the areas slightly breaking down and she applied hydrogel and dressed them on her own until she can get into the wound center. She says the patient scratched the areas open in his sleep. Progress of Wound: Ulcer sites are healed this week. Patient's says he has done a little better keeping compression to his lower extremities this week. Patient denies any purlence, surrounding redness, surrounding warmth or any other signs of infection. Patient denies any nausea, vomiting, fever, or chills. - Physical Exam Vital Signs Temp Pulse Resp BP 97.2 F L 82 18 161/86 H 12/02/17 11:55 12/02/17 11:55 12/02/17 11:55 12/02/17 11:55 General: Alert, Oriented x3, Cooperative, No apparent distress Extremities: Capillary Refill Less than 3 Seconds, No Calf Tenderness - Negative Kavon and Cody sign, Diminished Peripheral Pulses, Edema - Bilateral pitting lower extremity edema Skin: Ulcer/ Wound - Ulcer sites were are healed this week. There is a very small fluid-filled bulla to the left lower extremity, but this area is still intact at this time. There are no signs of infection appreciated currently Wound Measurements and Assessment - Nurse 2 - General Ulcer CM Notes Start: 11/18/17 11:57 Freq: Status: Active Protocol: Activity Type Activity Date Activity User E-Sign Co-Sign Detail Recorded Client Recorded Date Recorded By Document 12/02/17 12:00 DV [id number] 12/02/17 12:01 DV 12/02/17 12:00 Wound Center Nurse 2 [Procedure/Treatment] #16- LT FOX -Time 12:00 -Correct Patient Yes -Procedure Performed No #13 R Fox Cluster -Time 12:00 -Correct Patient Yes -Procedure Performed No [See Physician Procedure note for Specifics] Pain Scale: 0-10 Numeric [Pain] -Is Patient Pain Free? Yes Musculoskeletal: Tenderness - Slight tenderness with manipulation of lower extremity Neurological: Sensory exam intact to light touch and pain Psych/Mental Status: Normal Affect, Appropriate Debridement Note Post-Debridement Measurements/Treatment - Nurse 2 - General Ulcer Notes Start: 11/18/17 11:57 Freq: Status: Active Protocol: Activity Type Activity Date Activity User E-Sign Co-Sign Detail Recorded Client Recorded Date Recorded By Document 11/18/17 12:23 JS [id number] 11/18/17 12:25 Document 12/02/17 12:00 [id number] 12/02/17 12:01 11/18/17 12/02/17 12:23 12:00 Wound Center Nurse 2 #16- LT FOX -Time 12:24 12:00 -Correct Patient Yes Yes -Correct Side, Site, Position Yes -Correct Procedure Yes -Procedure Performed Yes No -Type of Procedure Debridement -Clinical Debridement Subcutaneous -Post Debridement Size (cm) - Length 0.8 -Post Debridement Size (cm) - Width 0.8 -Post Debridement Size (cm) - Depth 0.1 -Total Square Cm 0.64 -Wound/Ulcer Outcome Not Healed -Ulcer Cleansing Rinsed/ Irrigated with Saline -Foul Odor after Cleansing No -Bioengineered Tissue No -Topical Lidocaine (%) 4 -Lidocaine (ml) 5 -Bleeding Controlled with NA -Treatment Response Procedure Tolerated Well #13 R Fox Cluster -Time 12:24 12:00 -Correct Patient Yes Yes -Correct Side, Site, Position Yes -Correct Procedure Yes -Procedure Performed Yes No -Type of Procedure Debridement -Clinical Debridement Subcutaneous -Post Debridement Size (cm) - Length 4.5 -Post Debridement Size (cm) - Width 4.3 -Post Debridement Size (cm) - Depth 0.1 -Total Square Cm 19.35 -Wound/Ulcer Outcome Not Healed -Ulcer Cleansing Rinsed/ Irrigated with Saline -Foul Odor after Cleansing No -Bioengineered Tissue No -Topical Lidocaine (%) 4 -Lidocaine (ml) 5 -Bleeding Controlled with NA -Treatment Response Procedure Tolerated Well Pain Scale: 0-10 Numeric Is Patient Pain Free? Yes Yes No debridement was completed today Assessment/Plan Assessment: Edema bilateral lower legs. PVD. Diabetes uncontrolled Plan: This patient was carefully examined and evaluated again today with by his side. No debridement was completed today. Patient is to wear his Tubigrip's and Arnold bandages bilateral lower extremities or get back into his CircAid wraps. The importance of keeping compression to these areas was again stressed in great detail to the patient and his again today. I stressed the importance of wearing these to both the patient and his today as well as keeping legs elevated at all times while seated. The patient was instructed to never be seated with his legs in a dependent position for any extended period of time. They say that they understand this. They are instructed to continue to follow-up with Dr. Ho as currently scheduled for evaluation of lower extremity. All signs and symptoms of local and systemic infection were discussed with the patient and the patient's and they were instructed to call the clinic or go to the emergency room immediately if any of these are noted. All questions were answered to the patient and his 's satisfaction and they will follow-up at the wound healing center in 2 weeks to check on patient's progress and possible discharge, or sooner if needed.
--- NOTE | 2017-12-02 14:34 | PN.PCM_ITS ---
(1) Non-pressure ulcer of right lower extremity with fat layer exposed Status: Acute Current Visit: No Code(s): L97.912 - Non-pressure chronic ulcer of unspecified part of right lower leg with fat layer exposed (2) Non-pressure ulcer of left lower extremity with fat layer exposed Status: Chronic Current Visit: No Code(s): L97.922 - Non-pressure chronic ulcer of unspecified part of left lower leg with fat layer exposed (3) Venous insufficiency (chronic) (peripheral) Status: Chronic Current Visit: No Code(s): I87.2 - Venous insufficiency ( chronic) (peripheral) (4) Type 2 diabetes mellitus with peripheral neuropathy Status: Chronic Current Visit: No Code(s): E11.42 - Type 2 diabetes mellitus with diabetic polyneuropathy (5) Obesity Status: Chronic Current Visit: No Qualifiers: Code(s): E66.9 - Obesity, unspecified (6) Malnutrition Status: Acute Current Visit: No Code(s): E46 - Unspecified protein-calorie malnutrition (7) Lower extremity edema Status: Chronic Current Visit: No Code(s): R60.0 - Localized edema Type of Wound Date of Service: 12/02/17 Chief Complaint: R fox ulcer History of Wound: 66-year-old diabetic male patient presents to office today with for swelling of lower legs and right lower leg venous stasis ulceration to right anterior lower leg. Patient is a poor historian. Patient' s talked most of the visit. When she noticed the areas slightly breaking down and she applied hydrogel and dressed them on her own until she can get into the wound center. She says the patient scratched the areas open in his sleep. Progress of Wound: Ulcer sites are healed this week. Patient's says he has done a little better keeping compression to his lower extremities this week. Patient denies any purlence, surrounding redness, surrounding warmth or any other signs of infection. Patient denies any nausea, vomiting, fever, or chills. - Physical Exam Vital Signs Temp Pulse Resp BP 97.2 F L 82 18 161/86 H 12/02/17 11:55 12/02/17 11:55 12/02/17 11:55 12/02/17 11:55 General: Alert, Oriented x3, Cooperative, No apparent distress Extremities: Capillary Refill Less than 3 Seconds, No Calf Tenderness - Negative Kavon and Cody sign, Diminished Peripheral Pulses, Edema - Bilateral pitting lower extremity edema Skin: Ulcer/ Wound - Ulcer sites were are healed this week. There is a very small fluid-filled bulla to the left lower extremity, but this area is still intact at this time. There are no signs of infection appreciated currently Wound Measurements and Assessment - Nurse 2 - General Ulcer CM Notes Start: 11/18/17 11:57 Freq: Status: Active Protocol: Activity Type Activity Date Activity User E-Sign Co-Sign Detail Recorded Client Recorded Date Recorded By Document 12/02/17 12:00 DV [id number] 12/02/17 12:01 DV 12/02/17 12:00 Wound Center Nurse 2 [Procedure/Treatment] #16- LT FOX -Time 12:00 -Correct Patient Yes -Procedure Performed No #13 R Fox Cluster -Time 12:00 -Correct Patient Yes -Procedure Performed No [See Physician Procedure note for Specifics] Pain Scale: 0-10 Numeric [Pain] -Is Patient Pain Free? Yes Musculoskeletal: Tenderness - Slight tenderness with manipulation of lower extremity Neurological: Sensory exam intact to light touch and pain Psych/Mental Status: Normal Affect, Appropriate Debridement Note Post-Debridement Measurements/Treatment - Nurse 2 - General Ulcer Notes Start: 11/18/17 11:57 Freq: Status: Active Protocol: Activity Type Activity Date Activity User E-Sign Co-Sign Detail Recorded Client Recorded Date Recorded By Document 11/18/17 12:23 JS [id number] 11/18/17 12:25 Document 12/02/17 12:00 [id number] 12/02/17 12:01 11/18/17 12/02/17 12:23 12:00 Wound Center Nurse 2 #16- LT FOX -Time 12:24 12:00 -Correct Patient Yes Yes -Correct Side, Site, Position Yes -Correct Procedure Yes -Procedure Performed Yes No -Type of Procedure Debridement -Clinical Debridement Subcutaneous -Post Debridement Size (cm) - Length 0.8 -Post Debridement Size (cm) - Width 0.8 -Post Debridement Size (cm) - Depth 0.1 -Total Square Cm 0.64 -Wound/Ulcer Outcome Not Healed -Ulcer Cleansing Rinsed/ Irrigated with Saline -Foul Odor after Cleansing No -Bioengineered Tissue No -Topical Lidocaine (%) 4 -Lidocaine (ml) 5 -Bleeding Controlled with NA -Treatment Response Procedure Tolerated Well #13 R Fox Cluster -Time 12:24 12:00 -Correct Patient Yes Yes -Correct Side, Site, Position Yes -Correct Procedure Yes -Procedure Performed Yes No -Type of Procedure Debridement -Clinical Debridement Subcutaneous -Post Debridement Size (cm) - Length 4.5 -Post Debridement Size (cm) - Width 4.3 -Post Debridement Size (cm) - Depth 0.1 -Total Square Cm 19.35 -Wound/Ulcer Outcome Not Healed -Ulcer Cleansing Rinsed/ Irrigated with Saline -Foul Odor after Cleansing No -Bioengineered Tissue No -Topical Lidocaine (%) 4 -Lidocaine (ml) 5 -Bleeding Controlled with NA -Treatment Response Procedure Tolerated Well Pain Scale: 0-10 Numeric Is Patient Pain Free? Yes Yes No debridement was completed today Assessment/Plan Assessment: Edema bilateral lower legs. PVD. Diabetes uncontrolled Plan: This patient was carefully examined and evaluated again today with by his side. No debridement was completed today. Patient is to wear his Tubigrip's and Arnold bandages bilateral lower extremities or get back into his CircAid wraps. The importance of keeping compression to these areas was again stressed in great detail to the patient and his again today. I stressed the importance of wearing these to both the patient and his today as well as keeping legs elevated at all times while seated. The patient was instructed to never be seated with his legs in a dependent position for any extended period of time. They say that they understand this. They are instructed to continue to follow-up with Dr. Ho as currently scheduled for evaluation of lower extremity. All signs and symptoms of local and systemic infection were discussed with the patient and the patient's and they were instructed to call the clinic or go to the emergency room immediately if any of these are noted. All questions were answered to the patient and his 's satisfaction and they will follow-up at the wound healing center in 2 weeks to check on patient's progress and possible discharge, or sooner if needed.
== END 2017-12-12 23:59 ==
LOC: WC 11:30
PROVIDERS: Family Provider Family Medicine Geriatric Medicine; PCP Family Medicine Geriatric Medicine; Visit Provider Podiatrist
DX: E11.622 Type 2 diabetes mellitus with other skin ulcer (principal); I87.2 Venous insufficiency (chronic) (peripheral); E11.42 Type 2 diabetes mellitus with diabetic polyneuropathy; R60.0 Localized edema; E66.9 Obesity, unspecified; Z68.42 Body mass index [BMI] 45.0-49.9, adult; Z71.3 Dietary counseling and surveillance; M79.89 Other specified soft tissue disorders; L97.812 Non-pressure chronic ulcer of other part of right lower leg with fat layer exposed; E11.51 Type 2 diabetes mellitus with diabetic peripheral angiopathy without gangrene; E11.65 Type 2 diabetes mellitus with hyperglycemia
CPT/HCPCS: 11042; 99213; G0463

== ENCOUNTER 2017-12-16 11:51 | Outpatient (RCR) | payer MEDICARE, SELFPAY ==
[2017-12-13 01:08] VITALS: BP 161/86; PULSE 82; RESP 18; TEMP 36.2
[2017-12-16 11:41] VITALS: BP 169/106; PULSE 83; RESP 18; TEMP 35.3
--- NOTE | 2017-12-16 13:55 | PCM.WC.PN ---
(1) Non-pressure ulcer of right lower extremity with fat layer exposed Status: Acute Current Visit: No Code(s): L97.912 - Non-pressure chronic ulcer of unspecified part of right lower leg with fat layer exposed (2) Non-pressure ulcer of left lower extremity with fat layer exposed Status: Chronic Current Visit: No Code(s): L97.922 - Non-pressure chronic ulcer of unspecified part of left lower leg with fat layer exposed (3) Venous insufficiency (chronic) (peripheral) Status: Chronic Current Visit: No Code(s): I87.2 - Venous insufficiency (chronic) (peripheral) (4) Type 2 diabetes mellitus with peripheral neuropathy Status: Chronic Current Visit: No Code(s): E11.42 - Type 2 diabetes mellitus with diabetic polyneuropathy (5) Obesity Status: Chronic Current Visit: No Qualifiers: Code(s): E66.9 - Obesity, unspecified (6) Lower extremity edema Status: Chronic Current Visit: No Code(s): R60.0 - Localized edema Type of Wound Chief Complaint: R lewis ulcer History of Wound: 66-year-old diabetic male patient presents to office today with for swelling of lower legs and right lower leg venous stasis ulceration to right anterior lower leg. Patient is a poor historian. Patient's talked most of the visit. When she noticed the areas slightly breaking down and she applied hydrogel and dressed them on her own until she can get into the wound center. She says the patient scratched the areas open in his sleep. Progress of Wound: Ulcer sites remain healed this week. Patient's says he does his best to keep compression to areas. Patient denies any purlence, surrounding redness, surrounding warmth or any other signs of infection. Patient denies any nausea, vomiting, fever, or chills. - Physical Exam Vital Signs Temp Pulse Resp BP 95.5 F L 83 18 169/106 H 12/16/17 11:41 12/16/17 11:41 12/16/17 11:41 12/16/17 11:41 General: Alert, Oriented x3, Cooperative, No apparent distress Extremities: Capillary Refill Less than 3 Seconds, No Calf Tenderness, Diminished Peripheral Pulses, Edema Skin: Ulcer/ Wound - healed Wound Measurements and Assessment WC - Nurse 1 - General Ulcer Measurement Start: 12/16/17 11:41 Freq: Status: Active Protocol: Activity Type Activity Date Activity User E-Sign Co-Sign Detail Recorded Client Recorded Date Recorded By Document 12/16/17 11:41 [id number] 12/16/17 11:44 [facility] 12/16/17 11:41 Wound Center Nurse 1 [Ulcer Assessment] #16- LT LEWIS -Combined with other wound No -Current Size (cm) - Length 0.1 -Current Size (cm) - Width 0.1 -Current Size (cm) - Depth 0.1 -Total Square Cm 0.01 -Date of Last Picture (Recall this 12/16/17 field) -Epithelialization Large 67-100% #13 R Lewis Cluster -Combined with other wound No -Current Size (cm) - Length 0.1 -Current Size (cm) - Width 0.1 -Current Size (cm) - Depth 0.1 -Total Square Cm 0.01 -Date of Last Picture (Recall this 12/16/17 field) -Photo Taken Yes -Epithelialization Large 67-100% [Edema Assessment] -Lower Limb Edema Present Yes -Right Calf (cm) 47 -Right Ankle (cm) 27.5 -Left Calf (cm) 47 -Left Ankle (cm) 28 WC - Nurse 2 - General Ulcer CM Notes Start: 12/16/17 11:41 Freq: Status: Active Protocol: Activity Type Activity Date Activity User E-Sign Co-Sign Detail Recorded Client Recorded Date Recorded By Document 12/16/17 12:06 DV [id number] 12/16/17 12:08 DV 12/16/17 12:06 Wound Center Nurse 2 [Procedure/Treatment] #16- LT LEWIS -Time 12:06 -Correct Patient Yes -Correct Side, Site, Position Yes -Procedure Performed No -Post Debridement Size (cm) - Length 0.1 -Post Debridement Size (cm) - Width 0.1 -Post Debridement Size (cm) - Depth 0.1 -Total Square Cm 0.01 -Wound/Ulcer Outcome Healed- Epithelialized #13 R Lewis Cluster -Time 12:07 -Correct Patient Yes -Correct Side, Site, Position Yes -Procedure Performed No -Post Debridement Size (cm) - Length 0.1 -Post Debridement Size (cm) - Width 0.1 -Post Debridement Size (cm) - Depth 0.1 -Total Square Cm 0.01 -Wound/Ulcer Outcome Healed- Epithelialized [See Physician Procedure note for Specifics] Pain Scale: 0-10 Numeric [Pain] -Is Patient Pain Free? Yes Musculoskeletal: No Tenderness to Palpation of Joints or Extremities Neurological: Sensory exam intact to light touch and pain Psych/Mental Status: Normal Affect, Appropriate Debridement Note Post-Debridement Measurements/Treatment WC - Nurse 2 - General Ulcer CM Notes Start: 12/16/17 11:41 Freq: Status: Active Protocol: Activity Type Activity Date Activity User E-Sign Co-Sign Detail Recorded Client Recorded Date Recorded By Document 12/16/17 12:06 DV [id number] 12/16/17 12:08 DV 12/16/17 12:06 Wound Center Nurse 2 #16- LT LEWIS -Time 12:06 -Correct Patient Yes -Correct Side, Site, Position Yes -Procedure Performed No -Post Debridement Size (cm) - Length 0.1 -Post Debridement Size (cm) - Width 0.1 -Post Debridement Size (cm) - Depth 0.1 -Total Square Cm 0.01 -Wound/Ulcer Outcome Healed- Epithelialized #13 R Lewis Cluster -Time 12:07 -Correct Patient Yes -Correct Side, Site, Position Yes -Procedure Performed No -Post Debridement Size (cm) - Length 0.1 -Post Debridement Size (cm) - Width 0.1 -Post Debridement Size (cm) - Depth 0.1 -Total Square Cm 0.01 -Wound/Ulcer Outcome Healed- Epithelialized Pain Scale: 0-10 Numeric Is Patient Pain Free? Yes No debridement was completed today Assessment/Plan Assessment: Edema bilateral lower legs. PVD. Diabetes uncontrolled Plan: This patient was carefully examined and evaluated again today with by his side. No debridement was completed today. Patient is to wear his Tubigrip's and Arnold bandages bilateral lower extremities or get back into his CircAid wraps. The importance of keeping compression to these areas was again stressed in great detail to the patient and his again today. I stressed the importance of wearing these to both the patient and his today as well as keeping legs elevated at all times while seated. The patient was instructed to never be seated with his legs in a dependent position for any extended period of time. They say that they understand this. All signs and symptoms of local and systemic infection were discussed with the patient and the patient's and they were instructed to call the clinic or go to the emergency room immediately if any of these are noted. All questions were answered to the patient and his 's satisfaction and they will be discharged from the wound healing center at this time, but were instructed to follow back up with any issues or concerns.
== END 2018-01-12 23:59 ==
LOC: WC 11:51
PROVIDERS: Family Provider Family Medicine Geriatric Medicine; PCP Family Medicine Geriatric Medicine; Visit Provider Podiatrist
DX: Z09 Encounter for follow-up examination after completed treatment for conditions other than malignant neoplasm (principal); E11.42 Type 2 diabetes mellitus with diabetic polyneuropathy; I87.2 Venous insufficiency (chronic) (peripheral); R60.0 Localized edema; M79.89 Other specified soft tissue disorders; E11.51 Type 2 diabetes mellitus with diabetic peripheral angiopathy without gangrene
CPT/HCPCS: 99213; G0463

== ENCOUNTER → 2018-01-06 15:34 | Outpatient (CLI) | payer MEDICARE, SELFPAY | PROVIDERS: Family Provider Family Medicine Geriatric Medicine; PCP Family Medicine; Referring Provider Internal Medicine Gastroenterology; Visit Provider Internal Medicine Gastroenterology | DX: R19.7 Diarrhea, unspecified (principal) | CPT/HCPCS: 87493 ==

== ENCOUNTER 2018-01-15 16:32 | Emergency (ER) | payer MEDICARE, SELFPAY ==
[2018-01-15 16:33] VITALS: BP 120/70; PULSE 85; RESP 20; TEMP 36.6; O2SAT 98; BMI 46.7
--- NOTE | 2018-01-15 16:51 | ED.VISSUMM ---
- ER Visit Summary Date of Service: 01/15/18 Chief Complaint: Itching History of Present Illness: The patient is a 67 M with increasing itching over the past 3 days. This is affecting him all over. He has decreased appetite. He had some nausea and vomiting yesterday. He never had this before. He had a recent colonoscopy about a week ago and was diagnosed with IBS. He has been taking medication for diarrhea. He also has a history of Alzheimer's dementia and diabetes. No fevers. No history of hepatitis. Physical Examination: Afebrile and vital signs unremarkable. Patient is alert. No acute distress. Scleral icterus noted. Jaundice noted. Scabs and excoriation noted from scratching. Abdomen soft. Heart regular. Lungs clear. Test Results: Laboratory studies pending Emergency Department Course and Treatment: Hemoglobin 12.4, potassium 5.4, glucose 266, total bilirubin 12.3, direct bilirubin 7.49, alkaline phosphatase 859, ALT 237, AST 229. Lipase normal. INR 1.1. Ultrasound shows a fatty liver. He has a gallstone at the neck of the gallbladder with mild distention and mild bile duct dilation there was concern for cholecystitis. As a courtesy, I did notify his GI doctor, Dr. Barnes. He does not have privileges at this facility. I spoke with Dr. Menjivar who was on-call. She reviewed his labs and imaging. She did not feel that his ultrasound findings would explain his abnormal labs. She believes he will need care at a tertiary facility. I spoke with the family. They requested [facility]. I spoke with a general surgeon there who will have the patient admitted to the hospitalist, Dr. Bell. They will also likely consult GI. Patient will be transferred by ambulance. Treatment Plan: As above Disposition: Transfer Impression: 1. Jaundice 2. Cholelithiasis This note was generated with [employer] dictation software. It may contain incorrect words, spelling, and punctuation that were not noted in review of the chart prior to signing ED Disposition - Plan for ED Patient: Chief Complaint: Itching Referrals: Mick Haney DO [STAFF PHYSICIAN] -
[2018-01-15 17:35] LABS: Absolute Lymphocyte Count 0.99 X10^3/ul (0.83-4.51); Absolute Neutrophil Count 4.2 X10^3/uL (2.0-7.7); Basophil# 0.01 X10^3/uL; Basophil% 0.2 % (0-1); Eosinophil# 0.18 X10^3/uL; Eosinophils% 2.8 % (0-5); Hematocrit 37.7 % (40-54); Hemoglobin 12.4 g/dl (13.0-16.5); Lymphocyte # 0.99 X10^3/ul (4.0); Lymphocyte % 15.6 % (19-41); Mean Corp Hgb Conc 32.9 g/gl (32-36); Mean Corpuscular Hgb 29.1 pg (27.0-32.0); Mean Corpuscular Volume 88.5 fL (80-94); Mean Platelet Vol. 11.9 fl (6.2-12.0); Monocyte# 0.94 X10^3/uL; Monocyte% 14.8 % (0-10); Neutrophil # 4.22 X10^3/uL (2.7-7.7); Neutrophil % 66.3 % (47-70); Platelet Count 238 K/mm3 (150-450); RBC Distribution Width CV 16.9 % (11.6-14.6); RBC Distribution Width SD 54.5 fl (35.1-43.9); Red Blood Count 4.26 M/mm3 (4.6-6.2); White Blood Count 6.4 K/mm3 (4.4-11.0)
[2018-01-15 17:37] LABS: POSITIVE COUNT NO; POSITIVE DIFFERENTIAL NO; POSITIVE MORPHOLOGY NO
[2018-01-15 17:41] LABS: International Normalized Ratio 1.1; Prothrombin Time (Protime)PT. 14.4 SECONDS (11.7-14.9)
[2018-01-15 17:51] LABS: AST(SGOT) 229 U/L (15-37); Alanine Aminotransfer ALT/SGPT 237 U/L (16-61); Albumin, Serum 2.4 g/dL (3.2-5.0); Alkaline Phosphatase 859 U/L (45-117); Anion Gap 8 (5-15); BUN 18 mg/dL (7-18); BUN/Creat Ratio 14.8 RATIO (10-20); Bilirubin, Direct 7.49 mg/dL (0.00-0.30); Calcium,Total 8.5 mg/dL (8.5-10.1); Chloride 102 mmol/L (98-107); Creatinine, Serum 1.22 mg/dL (0.70-1.30); EST Glomerular Filtration Rate 63 mL/min (>60); Est Glom Filt Rate - Afr Amer 76 mL/min (>60); Estimated Creatinine Clearance 59.01 ml/min; Globulin 4.4 g/dL (2.2-4.2); Glucose 266 mg/dL (74-106); Potassium 5.4 mmol/L (3.5-5.1); Protein, Total 6.8 g/dL (6.4-8.2); Sodium Level 137 mmol/L (136-145)
--- NOTE | 2018-01-15 17:58 | NURSING ---
PAGED DR KINGSLEY
--- NOTE | 2018-01-15 18:08 | US_ITS ---
STUDY: ABDOMINAL ULTRASOUND - RIGHT UPPER QUADRANT REASON FOR VISIT: Male, 67 years old. Right upper quadrant pain TECHNIQUE: Transverse and longitudinal imaging of the right upper quadrant was performed using real-time ultrasound. COMPARISON: June 11, 2017 FINDINGS: Liver: The liver measures 21 cm. There is heterogeneous echogenicity of the liver. The direction of portal flow is hepatopetal. There is no demonstrated mass in the liver. Gallbladder: The gallbladder is distended. The gallbladder wall measures 4-5 mm. There is a negative sonographic Lucas's sign. There is no demonstrated pericholecystic fluid. There is an echogenic focus in the neck of the gallbladder measuring 2.7 cm in diameter. There is nonshadowing echogenic material in the lumen of the gallbladder. Common Bile Duct (C.B.D.): The common bile duct measures 8-9 mm. Pancreas: The pancreas was not visualized. Right Kidney: The right kidney measures 14.0 cm. The right cortex measures 2.0 cm. There is no demonstrated mass in the right kidney. There is no dilatation of the collecting system. There is no demonstrated free fluid. US/Gallbladder IMPRESSION: There is a single gallstone which appears located in the neck of the gallbladder. The gallbladder is distended and there is mild wall thickening. Cholecystitis may be present. Minimal sludge is also seen in the lumen of the gallbladder. There is mild biliary ductal dilatation. The liver is enlarged with fatty infiltration. Electronically Signed: Denisa Reed MD at 20:40 EDT Tel Direct: [phone], Service support ,
[2018-01-15 20:05] VITALS: BP 157/73; PULSE 84; RESP 22; O2SAT 96
[2018-01-15 21:35] LABS: Lipase 44 U/L (73-393)
[2018-01-15 22:47] VITALS: BP 131/78; PULSE 82; RESP 18; O2SAT 93
== END 2018-01-15 23:41 | disposition short-term general hospital (02) ==
LOC: ED 17:50
PROVIDERS: Emergency Provider Emergency Medicine; Family Provider Family Medicine Geriatric Medicine; PCP Family Medicine Geriatric Medicine
DX: R17 Unspecified jaundice (principal); K80.20 Calculus of gallbladder without cholecystitis without obstruction; K83.8 Other specified diseases of biliary tract; K76.0 Fatty (change of) liver, not elsewhere classified; K58.9 Irritable bowel syndrome, unspecified; G30.9 Alzheimer's disease, unspecified; F02.80 Dementia in other diseases classified elsewhere, unspecified severity, without behavioral disturbance, psychotic disturbance, mood disturbance, and anxiety; E11.9 Type 2 diabetes mellitus without complications; Z79.4 Long term (current) use of insulin; Z79.84 Long term (current) use of oral hypoglycemic drugs; Z79.899 Other long term (current) drug therapy
CPT/HCPCS: 76705; 80048; 80074; 80076; 83690; 85025; 85610; 99284; A4216